=== PATIENT | female | born 1960 | race Caucasian/White ===

== ENCOUNTER 2021-03-10 16:38 | Inpatient (IN) | payer MEDICARE ==
[~2021-03-10] VITALS: Ht 157.5 cm; Wt 61.5 kg
[~2021-03-10 16:38] MED LIST: ALPR0.254 PO; ASPI-482 PO; CARV12.511 PO; CETI10TA74 PO; FLUT9.9S NS; GUAI600T47 PO; IBUP-1027 PO; OMEP20CA16 PO
[2021-03-10 17:36] VITALS: BP 115/92
[2021-03-10 19:00] VITALS: BP 118/68
--- NOTE | 2021-03-10 19:18 | HP ---
DATE OF SERVICE: 03/10/2021 ADMIT DATE: 03/10/2021 CHIEF COMPLAINT: UTI, sepsis, renal abscess. HISTORY OF PRESENT ILLNESS: The patient is a pleasant 60-year-old female who presented to [facility] earlier today. The ER doctor called and explained she was septic and that she had a UTI and he was concerned she might have a renal abscess. She has now been transferred to our facility where I have consulted Infectious Disease. I did call Dr. More of the Interventional Radiology service. He is going to consider draining the abscess tomorrow. PAST MEDICAL HISTORY: Allergic rhinitis, CHF, anxiety, depression and GERD. ALLERGIES: PENICILLIN AND METOPROLOL. FAMILY HISTORY: Diabetes. SOCIAL HISTORY: She does not drink, smoke or take drugs. She states she is on social security disability. MEDICATIONS: Reviewed. She is on Zyrtec, carvedilol, aspirin, ibuprofen, Xanax, Mucinex, fluticasone and omeprazole. REVIEW OF SYSTEMS: GENERAL: No history of weight change, weakness or fevers. SKIN: No bruising, hair changes or rashes. EYES: No blurred, double or loss of vision. NOSE AND THROAT: No history of nosebleeds, hoarseness or sore throat. HEART: No history of palpitations, chest pain or shortness of breath on exertion. LUNGS: Denies cough, hemoptysis, wheezing or shortness of breath. GASTROINTESTINAL: Denies changes in appetite, nausea, vomiting, diarrhea or constipation. GENITOURINARY: No history of frequency, urgency, hesitancy or nocturia. NEUROLOGIC: Denies history of numbness, tingling, tremor or weakness. PSYCHIATRIC: No history of panic, anxiety or depression. ENDOCRINE: No history of heat or cold intolerance, polyuria or polydipsia. EXTREMITIES: Denies muscle weakness, joint pain, pain on walking or stiffness. PHYSICAL EXAMINATION: VITALS: Within normal limits and are stable. GENERAL: No apparent distress. Alert and oriented. HEENT: Normal cephalic atraumatic, external auditory canals are patent EYES: Extraocular muscles are intact, pupils are equally round and reactive to light and accommodation MUSCULOSKELETAL: Well developed, well nourished, good range of motion ENDOCRINE: No thyromegaly was palpated LYMPHATICS: No cervical chain or axillary nodes were noted HEMATOPOIETIC: No bruising NECK: Supple, no JVD, no thyromegaly was noted. LUNGS: Clear to auscultation in all lung rendon without rhonchi or wheezing. HEART: RRR, S1, S2 present. Peripheral pulses intact, no obvious murmurs were noted. ABDOMEN: Soft, nontender. Positive bowel sounds no organomegaly, normal bowel sounds. EXTREMITIES: Without any cyanosis, clubbing, or edema. Pedal pulses intact, Homans sign is negative. NEUROLOGIC: Normal speech, normal tone. A and O x 3, moves all extremities, no obvious focal deficits. PSYCHIATRIC: Normal affect, normal mood. Stable. SKIN: No ulcerations or rashes, good skin turgor, no jaundice. VASCULAR: Good capillary refill, neurovascular bundle appears to be intact. LABORATORIES: Pending. ASSESSMENT AND PLAN: Sepsis, urinary tract infection and possible renal abscess. We will start IV antibiotics. Consult Infectious Disease, consult Interventional Radiology. She also has a bump in her troponin to 0.16. We will go ahead and consult Cardiology. Home meds. Deep venous thrombosis prophylaxis. Full code. Cardiac monitoring. I discussed the case with her nurse. SARIAH/TRENTON/EMEKA DR: SARIAH/nas TID: [id number]
[2021-03-10] MEDS: ACETAMINOPHEN 325 MG TABLET. PO PRN (19:47)
[2021-03-10] MEDS: NICOTINE 14MG PATCH. TD SCH (19:47)
[2021-03-10] MEDS ORDERED: ATOR10TA60 PO (22:24)
[2021-03-10] MEDS ORDERED: MENT120G3 TP (22:24)
[2021-03-10] MEDS ORDERED: INSU100V8 SQ (22:24)
[2021-03-10] MEDS ORDERED: GABA600T7 PO (22:46)
[2021-03-10 22:48] VITALS: BP 138/68
[2021-03-10] MEDS: GABAPENTIN 300 MG CAPSULE. PO SCH (23:03)
[2021-03-11] VITALS (11 sets, daily range): BP systolic 113–178; BP diastolic 70–106
[2021-03-11 06:44] LABS: CALCIUM 8.3 mg/dL (8.5-10.1); CREATININE 0.6 mg/dL (0.6-1.0); GFR 102.3; POTASSIUM 3.6 mmol/L (3.5-5.1)
[2021-03-11 07:46] LABS: BASO % 0 % (0-3); EOS # 0.1 x10^3/uL (0.0-0.7); EOS % 0 % (0-3); LYMPH # 1.4 x10^3/uL (1.0-4.8); LYMPH % 4 % (24-48); MEAN CORPUSCULAR HEMOGLOBIN 31 pg (25-35); MEAN CORPUSCULAR HGB CONC 33 g/dL (31-37); MEAN CORPUSCULAR VOLUME 95 fL (79-100); MONO # 2.8 x10^3/uL (0.0-1.1); MONO % 9 % (0-9); NEUT # 28.3 x10^3/uL (1.8-7.7); NEUT % 87 % (31-73); PLATELET COUNT 171 x10^3/uL (140-400); RED CELL DISTRIBUTION WIDTH 16.4 % (11.5-14.5); WHITE BLOOD COUNT 32.6 x10^3/uL (4.0-11.0)
--- NOTE | 2021-03-11 08:09 | PDOC ---
Provider Note Date of Service: DATE: 03/11/21 TIME: 08:05 Provider Note IR NOTE 60 year old female with possible right renal abscess. CT reviewed septated fluid collection lateral right kindey measures just under 3 cm. Generally renal abscess under 5 cm can be managed with antibiotics alone, with a short term followup scan to ensure improvement. However, if the causative organism is uncertain (for example if urine culture non diagnostic), or ID feels sampling abscess would be of benefit to guide therapy US/CT guided aspiration could be performed. Will followup on their recs and go from there. Justifications for Admission Other Justification STEPHEN ESPINOZA MD Mar 11, 2021 08:09
--- NOTE | 2021-03-11 08:27 | PDOC ---
[employer] PROGRESS NOTE Date of Service DOS: DATE: 03/11/21 TIME: 08:25 Chief Complaint Chief Complaint A/P: Septic shock Renal abscess UTI (urinary tract infection) - Acute pyelonephritis Gram negative bacteremia - ID consulted Hypokalemia Hypomagnesemia Elevated troponin Acute encephalopathy - sepsis vs ETOH/benzo withdrawal. On CIWA and treating sepsis Lactic acidosis - sepsis vs seizure Acute kidney injury - vasomotor nephropathy from sepsis Hyponatremia - likely hypovolemic, will monitor ETOH dependence, recently discharged from rehab facility. Elevated troponin - unclear etiology, likely demand from sepsis. Cardiology consulted FEN - regular diet PPX - heparin FULL CODE Dispo - transfer to ICU History of Present Illness History of Present Illness Ms Barber is a 60-year-old female who presented via EMS to [facility] in [place] with report of altered mental status. Patient reportedly was found laying across the toilet resting her head in the shower by her son with altered mental state. Patient does have a history of alcohol abuse and recently was discharged from rehab after she was hospitalized at [facility]. EMS reports noting many empty beer cans found in the home. Patient does report drinking recently. Patient reports nausea and vomiting. Patient denies headache or neck pain. Patient reports she feels "ill ". Patient has received [employer] Covid vaccination. No recent sick contacts EKG Sinus tachycardia at 129bpm, occasional PVC, NO ST elevation, QRS 108ms, QT/QTc 326/479ms Initial labs NA 120 6K3.3, BUN 14, CR 1.3, glucose 199, magnesium 1.4, bilirubin 1.6, AST 36 ALT 26 alk phos 4 3, albumin 2.4, troponin 0.05 7.2179 0.291, ammonia 39, lactic acid 8.3, ethanol undetectable urine benzodiazepines positive COVID-19 rapid PCR negative, urinalysis positive for leuk esterase and nitrates. Blood cultures positive for 2 out of 4 bottles gram-negative adryan Chest x-ray stable. CT head/cervical spine without acute finding. CTA chest and abdomen/pelvis w/ IV contrast obtained with findings concerning for right sided renal abscess. Empiric antibiotic coverage added with vancomycin. Transferred to [facility] for [facility] care. Seen bedside, confused, tachycardic, asking if she can have some xanax. Not oriented, tachycardic, blood cultures notes. Transferred to ICU for worsening mental status, concern for seizure prior to arrival and impending potential septic shock. CC time 43 min Vitals/I&O Vitals/I&O: Vital Signs Date Time Temp Pulse Resp B/P (MAP) Pulse Ox O2 Delivery O2 Flow Rate FiO2 03/11/21 07:30 100.0 134 26 176/92 (120) 99 Nasal Cannula 4.0 100.0 I & O 03/10/21 03/10/21 03/11/21 15:00 23:00 07:00 Intake Total 250 ml 0 ml Balance 250 ml 0 ml Physical Exam General: Alert Heart: Regular rate Lungs: Clear Labs Labs: Laboratory Tests Test 03/10/21 22:43 03/11/21 04:50 03/11/21 07:30 Glucose (Fingerstick) 128 mg/dL (70-99) Sodium Level 127 mmol/L (136-145) Potassium Level 3.6 mmol/L (3.5-5.1) Chloride Level 94 mmol/L (98-107) Carbon Dioxide Level 23 mmol/L (21-32) Anion Gap 10 (6-14) Blood Urea Nitrogen 11 mg/dL (7-20) Creatinine 0.6 mg/dL (0.6-1.0) Estimated GFR (Cockcroft-Gault) 102.3 Glucose Level 97 mg/dL (70-99) Calcium Level 8.3 mg/dL (8.5-10.1) White Blood Count 32.6 x10^3/uL (4.0-11.0) Red Blood Count 4.20 x10^6/uL (3.50-5.40) Hemoglobin 13.0 g/dL (12.0-15.5) Hematocrit 40.0 % (36.0-47.0) Mean Corpuscular Volume 95 fL (79-100) Mean Corpuscular Hemoglobin 31 pg (25-35) Mean Corpuscular Hemoglobin Concent 33 g/dL (31-37) Red Cell Distribution Width 16.4 % (11.5-14.5) Platelet Count 171 x10^3/uL (140-400) Neutrophils (%) (Auto) 87 % (31-73) Lymphocytes (%) (Auto) 4 % (24-48) Monocytes (%) (Auto) 9 % (0-9) Eosinophils (%) (Auto) 0 % (0-3) Basophils (%) (Auto) 0 % (0-3) Neutrophils # (Auto) 28.3 x10^3/uL (1.8-7.7) Lymphocytes # (Auto) 1.4 x10^3/uL (1.0-4.8) Monocytes # (Auto) 2.8 x10^3/uL (0.0-1.1) Eosinophils # (Auto) 0.1 x10^3/uL (0.0-0.7) Basophils # (Auto) 0.0 x10^3/uL (0.0-0.2) Comment Review of Relevant I have reviewed the following items celeste (where applicable) has been applied. Medications: Current Medications Medications (Trade) Dose Ordered Sig/Radha Route PRN Reason Start Time Stop Time Status Last Admin Dose Admin Levofloxacin/ Dextrose 50 ml @ 50 mls/hr Q24H IV 03/10/21 19:00 03/10/21 19:48 Acetaminophen (Tylenol) 650 mg PRN Q6HRS PRN PO MILD PAIN / TEMP > 100.3'F 03/10/21 18:45 03/10/21 19:47 Nicotine (Nicoderm Cq 14mg) 1 patch DAILY TD 03/10/21 19:00 03/10/21 19:47 Gabapentin (Neurontin) 300 mg BID PO 03/10/21 23:00 03/10/21 23:03 Lorazepam (Ativan) 4 mg PRN Q1HR PRN PO For CIWA 8-14 03/10/21 23:00 03/10/21 23:03 Images: CT HEAD AND CERVICAL SPINE WO Exam Date: 03/10/2021 8:[address] HEAD AND C-SPINE WO Indication: Reason: altered mental status, fall, ETOH, pain / Spl. Instructions: / History: . One or more of the following dose reduction techniques were utilized: *Automated exposure control (AEC) *Adjustment of mA and/or kV according to patient size *Use of iterative reconstruction technique *CT scan done according to ALARA, or ALARA/IMAGE GENTLY EXAMINATION: CT OF THE HEAD WITHOUT CONTRAST INDICATION: Trauma, head injury, headache; TECHNIQUE: Noncontrast helical axial CT images of the head were obtained. COMPARISON: September 03, 2020 FINDINGS: The ventricles and sulci are prominent consistent with cerebral volume loss. Patchy ill-defined low attenuation areas in the subcortical and periventricular white matter bilaterally are consistent with microvascular disease. There is no evidence of acute intracranial hemorrhage, extra-axial collection, mass effect, midline shift, or acute territorial infarct. No lesion of the skull base or the calvarium is seen. The visualized paranasal sinuses, mastoid air cells, and orbits are normal in appearance. IMPRESSION: No evidence for acute intracranial abnormality. Volume loss and microvascular disease. EXAMINATION: CT OF THE CERVICAL SPINE WITHOUT CONTRAST Clinical Indication: Cervical spine pain after trauma Technique: Thin cut helical axial CT images through the cervical spine were obtained without contrast on a multi-detector CT scanner. Source data was then reconstructed into sagittal and coronal planes. Findings: Alignment is maintained without spondylolisthesis. Vertebral body heights are maintained without acute fracture. Mild multilevel degenerative changes are noted. No significant prevertebral soft tissue swelling is demonstrated. No severe osseous central canal stenosis is seen. Impression: No evidence of acute cervical spine fracture or subluxation. Electronically signed by: Daniel Johnson MD (03/10/2021 8:43 AM) [id number] PROCEDURE: PORTABLE CHEST 1V Single view of the chest. 03/10/2021 8:18 AM Indication: Reason: altered mental status Comparison: Chest radiograph January 23, 2021 Findings: Heart size is top normal given portable technique. Mild aortic calcification noted. No pneumothorax, pleural effusion, or focal infiltrate is seen. No acute osseous changes are identified. IMPRESSION: No radiographic evidence of acute cardiopulmonary process Electronically signed by: Faustino More MD (03/10/2021 8:33 AM) [id number] PROCEDURE: CT ANGIO CHEST W ABD PEL W/ CTA CHEST_ABDOMEN_AND PELVIS History: Dyspnea, abdominal pain. Rule out PE. Comparison: CTA chest 01/23/2021. CT abdomen pelvis 05/06/2020. Technique: CT angiogram of the chest, abdomen and pelvis with intravenous con trast. 3-D postprocessing was performed with MIPS projections Findings: Chest: Pulmonary arteries: No pulmonary embolism. Aorta and great vessels: No aneurysm of the aortic arch or thoracic aorta is seen. Mild atherosclerotic calcification. Heart: The heart is normal in size. There is no pericardial effusion. Heavy coronary artery calcification. Thyroid: No significant abnormalities. Mediastinum and perla: No mediastinal masses or adenopathy is seen. Esophagus: The visualized esophagus is normal. Airways, Lungs, Pleura: Motion artifact limits evaluation. No airspace consolidation. No significant pulmonary nodule. Soft tissue and osseous: Healing fractures of the anterior left second, third, fourth, fifth, sixth, seventh ribs. Hypoplastic left first rib. Butterfly vertebral bodies at T4, T6, T8 and T9. Abdomen/Pelvis: General abdomen: No ascites. No free air. Liver : Normal in size and attenuation. No masses seen. Gallbladder/Biliary Tree: Normal gallbladder. No intrahepatic or extrahepatic biliary ductal dilatation. Pancreas: Normal. Spleen: Normal in size and attenuation. Adrenal glands: Normal. Kidneys: Irregular fluid density mass interpolar right kidney measuring 3.4 x 2.6 x 2.7 cm, new from comparison. No hydronephrosis. Nonobstructing left inferior pole 7 mm nephroliths. Gastrointestinal: Unremarkable stomach and small bowel. Normal appendix. Relatively decompressed colon with a few scattered diverticula. No pericolonic inflammatory changes. Lymph nodes: No lymphadenopathy. Vessels: Aortoiliac atherosclerosis. Pelvic Organs: Heterogeneous calcified multi fibroid uterus. The bladder is unremarkable. Soft tissues: Unremarkable. Bones: No acute or aggressive lesions. Impression: 1. No pulmonary embolism, aortic dissection or aortic aneurysm. 2. Irregular fluid density right renal mass measuring up to 3.4 cm concerning for renal abscess. Correlate with labs and symptoms. Renal infarction or neoplasm are considered less likely. 3. Numerous subacute left anterior rib fractures. 4. Nonobstructing left nephrolithiasis. 5. Mild diverticulosis without evidence of diverticulitis. 6. Variant thoracic spine anatomy with multiple butterfly vertebral bodies. ------ Exposure: One or more of the following individualized dose reduction techniques were utilized for this examination: 1. Automated exposure control 2. Adjustment of the mA and/or kV according to patient size 3. Use of iterative reconstruction technique. 3. Use of iterative reconstruction technique. I Electronically signed by: Irving Valdez MD (03/10/2021 11:11 AM) [facility] Justifications for Admission Other Justification CHON GARIBAY MD Mar 11, 2021 08:26
[2021-03-11] MEDS ORDERED: HALOPERIDOL LACTATE 5 MG/ML VIAL. IVP PRN (08:30)
[2021-03-11] MEDS ORDERED: cloNIDine HCL 0.1 MG TABLET PO PRN (08:30)
[2021-03-11] MEDS ORDERED: IV NORMAL SALINE 1000ML BAG 1,000 ML IV ONE ×2 (08:30→17:00)
[2021-03-11] MEDS: NICOTINE 14MG PATCH. TD SCH (08:56)
[2021-03-11] MEDS: ACETAMINOPHEN 325 MG TABLET. PO PRN (09:08)
[2021-03-11] MEDS: GABAPENTIN 300 MG CAPSULE. PO SCH ×2 (09:08→21:30)
[2021-03-11 09:12] LABS: % BANDS 10 % (0-9); % LYMPHS 2 % (24-48); % METAS 2 % (0-0); % MONOS 3 % (0-10); % SEGS 83 % (35-66)
[2021-03-11 09:13] LABS: PLT ESTIMATE ADEQUATE (ADEQUATE); TOXIC VACUOLATION SLIGHT
[2021-03-11 10:34] LABS: PROTHROMBIN TIME PATIENT 13.6 SEC (11.7-14.0)
[2021-03-11 10:49] LABS: CHOLESTEROL/HDL RATIO 20.4
--- NOTE | 2021-03-11 11:08 | PDOC2 ---
RADHA OSEI PATROL AGENT 03/11/21 1108: CARDIAC CONSULT DATE OF CONSULT Date of Consult DATE: 03/11/21 TIME: 11:06 REASON FOR CONSULT Reason for Consult: Elevated troponin REFERRING PHYSICIAN Referring Physician: Dr. Lawson SOURCE Source: Chart review, Patient HISTORY OF PRESENT ILLNESS HISTORY OF PRESENT ILLNESS This is a 60 yo female who presented initially to [facility] secondary to altered mental status. Patient was found by son laying across the toilet with altered mental status. Patient reported she didn't feel well and had nausea and vomiting. Was thought to be intoxicated as patient has a history of alcohol abuse and was recently discharged from rehab facility. Multiple empty beer cans were also noted in the home. Initial labs with concerns for sepsis given leukocytosis, bandemia, lactic acidosis, and tachycardia. Troponin noted to be slightly elevated with highest 0.29. CT head/cervical spine without acute finding. Alcohol negative. Rapid Covid testing negative. Mag and potassium were replaced. CTA chest and abdomen/pelvis w/ IV contrast obtained with findings concerning for right sided renal abscess. UA with evidence of UTI. Patient was transferred to [facility] for further evaluation and treatment. PAST MEDICAL HISTORY Cardiovascular: CAD, CHF, HTN, Hyperlipidemia CENTRAL NERVOUS SYSTEM: Periperal neuropathy Psych: Anxiety, Addictions, Depression, Panic Musculoskeletal: Osteoarthritis, Other (scoliosis ) Endocrine: Diabetes, Hypothyroidism PAST SURGICAL HISTORY Past Surgical History: No pertinent history FAMILY HISTORY Family History: Family History Unknown SOCIAL HISTORY Smoke: 1 pack per day ALCOHOL: heavy (recent rehab) Drugs: None Lives: with Family CURRENT MEDICATIONS CURRENT MEDICATIONS Current Medications Medications (Trade) Dose Ordered Sig/Radha Route PRN Reason Start Time Stop Time Status Last Admin Dose Admin Levofloxacin/ Dextrose 50 ml @ 50 mls/hr Q24H IV 03/10/21 19:00 03/11/21 08:25 DC 03/10/21 19:48 Acetaminophen (Tylenol) 650 mg PRN Q6HRS PRN PO MILD PAIN / TEMP > 100.3'F 03/10/21 18:45 03/11/21 09:08 Nicotine (Nicoderm Cq 14mg) 1 patch DAILY TD 03/10/21 19:00 03/11/21 08:56 Gabapentin (Neurontin) 300 mg BID PO 03/10/21 23:00 03/11/21 09:08 Lorazepam (Ativan) 4 mg PRN Q1HR PRN PO For CIWA 8-14 03/10/21 23:00 03/11/21 09:25 DC 03/10/21 23:03 Sodium Chloride 1,000 ml @ 125 mls/hr 1X ONCE IV 03/11/21 08:30 03/11/21 16:29 03/11/21 08:55 ALLERGIES ALLERGIES: Coded Allergies: Penicillins (Verified Allergy, Severe, Swelling, 03/10/21) codeine (Verified Allergy, Severe, 03/11/21) swelling and confusion metoprolol (Verified Allergy, Intermediate, PASSED OUT, 03/10/21) PASSED OUT ampicillin (Verified Allergy, Unknown, 03/11/21) atorvastatin (Verified Allergy, Unknown, 03/11/21) losartan (Verified Allergy, Unknown, 03/11/21) ROS Review of System 14 point ROS conducted with pertinent positives noted above in HPI PHYSICAL EXAM General: Alert, Oriented X3, Cooperative, No acute distress HEENT: Atraumatic, Mucous membr. moist/pink Lungs: Other (diminished bases) Heart: Regular rate (SR/ST) Abdomen: Soft Extremities: No edema, Normal pulses Skin: No breakdown, No significant lesion Neuro: Sensation intact Psych/Mental Status: Other (drowsy) MUSCULOSKELETAL: Osteoarthritic changes both hands VITALS/I&O VITALS/I&O: Vital Signs Date Time Temp Pulse Resp B/P (MAP) Pulse Ox O2 Delivery O2 Flow Rate FiO2 03/11/21 07:30 100.0 134 26 176/92 (120) 99 Nasal Cannula 4.0 100.0 I & O 03/10/21 03/10/21 03/11/21 15:00 23:00 07:00 Intake Total 250 ml 0 ml Balance 250 ml 0 ml LABS Lab: Laboratory Tests Test 03/10/21 22:43 03/11/21 04:50 03/11/21 07:30 03/11/21 10:11 Glucose (Fingerstick) 128 mg/dL (70-99) H Sodium Level 127 mmol/L (136-145) L Potassium Level 3.6 mmol/L (3.5-5.1) Chloride Level 94 mmol/L (98-107) L Carbon Dioxide Level 23 mmol/L (21-32) Anion Gap 10 (6-14) Blood Urea Nitrogen 11 mg/dL (7-20) Creatinine 0.6 mg/dL (0.6-1.0) Estimated GFR (Cockcroft-Gault) 102.3 Glucose Level 97 mg/dL (70-99) Calcium Level 8.3 mg/dL (8.5-10.1) L White Blood Count 32.6 x10^3/uL (4.0-11.0) H Red Blood Count 4.20 x10^6/uL (3.50-5.40) Hemoglobin 13.0 g/dL (12.0-15.5) Hematocrit 40.0 % (36.0-47.0) Mean Corpuscular Volume 95 fL (79-100) Mean Corpuscular Hemoglobin 31 pg (25-35) Mean Corpuscular Hemoglobin Concent 33 g/dL (31-37) Red Cell Distribution Width 16.4 % (11.5-14.5) H Platelet Count 171 x10^3/uL (140-400) Neutrophils (%) (Auto) 87 % (31-73) H Lymphocytes (%) (Auto) 4 % (24-48) L Monocytes (%) (Auto) 9 % (0-9) Eosinophils (%) (Auto) 0 % (0-3) Basophils (%) (Auto) 0 % (0-3) Neutrophils # (Auto) 28.3 x10^3/uL (1.8-7.7) H Lymphocytes # (Auto) 1.4 x10^3/uL (1.0-4.8) Monocytes # (Auto) 2.8 x10^3/uL (0.0-1.1) H Eosinophils # (Auto) 0.1 x10^3/uL (0.0-0.7) Basophils # (Auto) 0.0 x10^3/uL (0.0-0.2) Segmented Neutrophils % 83 % (35-66) H Band Neutrophils % 10 % (0-9) H Lymphocytes % 2 % (24-48) L Monocytes % 3 % (0-10) Metamyelocytes % 2 % (0-0) H Toxic Vacuolation Slight Platelet Estimate Adequate (ADEQUATE) Prothrombin Time 13.6 SEC (11.7-14.0) Prothrombin Time INR 1.0 (0.8-1.1) Activated Partial Thromboplast Time 32 SEC (24-38) Troponin I Quantitative 0.431 ng/mL (0.000-0.055) Triglycerides Level 268 mg/dL (0-150) H Cholesterol Level 163 mg/dL (0-200) LDL Cholesterol, Calculated 101 mg/dL (0-100) H VLDL Cholesterol, Calculated 54 mg/dL (0-40) H Non-HDL Cholesterol Calculated 155 mg/dL (0-129) H HDL Cholesterol 8 mg/dL (40-60) L Cholesterol/HDL Ratio 20.4 Laboratory Tests 03/11/21 07:30 Laboratory Tests 03/11/21 04:50 ECHOCARDIOGRAM ECHOCARDIOGRAM 09/26/20 - 2D + DOPPLER ECHO Interpretation Summary LVEF=45%. Mild to moderately dilated left ventricle with mildly impaired systolic function. Right ventricular size and function are normal. Normal LA volume index. No hemodynamically significant valve abnormalities. No pericardial effusion. Unable to accurately estimate PA systolic pressure. HEART CATH HEART CATH CARDIAC CATHETERIZATION REPORT DATE: 08/04/2012 FINDINGS: Left ventricular end systolic pressure is 143 mmHg. Left ventricular end-diastolic pressure 12 mmHg. There was no gradient across aortic valve during pullback maneuver. SELECTIVE CORONARY ANGIOGRAM: LEFT MAIN CORONARY ARTERY: The left main coronary artery is a medium sized vessel which has distal luminal irregularities of 10 percent, divides into LAD and circumflex coronary arteries. There is no significant stenosis in the proximal or midportion and mild 10 percent luminal stenosis in the distal left m ain. LEFT ANTERIOR DESCENDING ARTERY: The left anterior descending artery is a large type 3 vessel which wraps around the apex. It gives rise to 2 small to medium sized diagonals in the proximal segment. These do not have any significant stenotic lesions. After this, the proximal area has about 20 percent focal stenosis. The mid and distal LAD does not have any significant stenosis. There is a 3rd diagonal which is of large size which divides into superior and inferior branches and arises from the mid LAD. There is no significant stenosis in the 3rd diagonal branch as well. LEFT CIRCUMFLEX CORONARY ARTERY: The left circumflex coronary artery is a codominant vessel. It gives rise to 1 large obtuse marginal vessel which divides into superior and inferior branch. The 2nd obtuse marginal was a medium sized vessel and the 3rd obtuse marginal vessel is a smaller vessel that does not have any significant stenosis. Then it gives rise to the left-sided PDA which does not have any significant stenotic lesions. RIGHT CORONARY ARTERY: The right coronary artery is a codominant vessel. It gives rise to a short PDA and PLV segment. Does not have any significant stenosis in the proximal, mid and distal portion. There is no significant stenosis in the PDA and PLV branches. LEFT VENTRICULOGRAM: Overall ejection fraction is 60 percent. No wall motion changes. No mitral regurgitation. Normal-appearing aortic root size. Aortic valve is trileaflet. IMPRESSION: Mild nonobstructive coronary artery disease. Normal left ventricular end-diastolic pressure. Normal left ventricular ejection fraction. PLAN: Medical treatment. ASSESSMENT/PLAN ASSESSMENT/PLAN 1. Leukocytosis, lactic acidosis, fevers, sepsis. CT with concerns for right renal abscess 2. UTI 3. Sinus tachycardia; physiologic secondary to above 4. Mild troponin elevation; highest 0.29. Most probable type II, demand ischemia in setting of above 5. CAD; mild, non-obstructive per cath 2012 6. Chronic systolic CHF, dilated cardiomyopathy; Echo 10/03 with LVEF 45%. Follows with Dr. Najera [facility] 7. Hypertension; labile 8. Hyperlipidemia; statin 9. DOMI; improved 10. Diabetes, II 11. Hypothyroidism 12. H/o ETOH abuse; recent discharged from rehab facility. neg upon admission Recommendations Repeat troponin to note peak ASA therapy Echo to assess LV systolic Resume home antiHTN therapy, secondary prevention Consider outpatient ischemic evaluation Ongoing treatment of sepsis as per ID Supportive care Consider outpatient ischemic evaluation DURAN BOLAÑOS MD 03/11/212036: CARDIAC CONSULT ASSESSMENT/PLAN ASSESSMENT/PLAN Patient seen and examined. Agree with FOOD MIXER REPAIRER's assessment and plan Slight trop elevation prob demand ischemia 2D echo showed normal LVF Plan ischemic eval as outpatient Resume home antihypertensives and titrate for better BP control Thank you for your consultation RADHA OSEI APRN Mar 11, 2021 11:08 DURAN BOLAÑOS MD Mar 11, 2021 20:37
--- NOTE | 2021-03-11 11:23 | CONS ---
DATE OF CONSULTATION: 03/11/2021 REFERRING PHYSICIAN: David Lawson DO REASON FOR CONSULTATION: UTI, renal abscess, antibiotic management. Source Chart and Medical staff. Pt is sleepy from ativan last night, arousable but information limited. HISTORY OF PRESENT ILLNESS: A 60-year-old female who presented to [facility] with reports of altered mental status. The patient had leukocytosis, white count of 17,000. She met SIRS criteria with leukocytosis, bandemia, tachycardia. She received IV fluid bolus. Lactic acid was elevated. Alcohol levels were negative. UA showed pyuria. Chest x-ray was negative for acute process. CT head, cervical spine was negative for acute findings. The patient also had COVID test rapid, which was negative. She had hypokalemia and hypomagnesemia. The patient was started on Rocephin, also received a dose of vancomycin. CT of the chest, abdomen and pelvis revealed right renal abscess; irregular fluid density right renal mass measuring 3.4 cm, concerning for renal abscess, correlate with labs and symptoms, renal infarction or neoplasm are considered less likely; no PE; nonobstructing left nephrolithiasis; mild diverticulosis without evidence of diverticulitis; ovarian thoracic spine abnormality. The patient was transferred to [facility] for further evaluation and treatment. Currently, the patient is sleepy. She is arousable, does not answer all the questions. She received Ativan last night. Her temperature is 100. White count here was 32,000. The patient is currently on Levaquin. ID consultation has been requested for antibiotic management. Records from [facility] reviewed. She is tachycardic, on nacl, no pressor support. PAST MEDICAL HISTORY: GERD, anxiety, depression, CHF, allergic rhinitis, ETOH dependence. Currently per chart, the patient was discharged from rehab due to history of alcohol abuse. SOCIAL HISTORY: Denies smoking. ETOH dependence as above. No illicit drug use. On social security disability. CURRENT MEDICATIONS: Levaquin, also received Rocephin and IV vancomycin at outside hospital. Other medications reviewed in medication list. ALLERGIES: PENICILLIN SAYS CAUSES RASH AND THROAT SWELLING, DOES NOT RECALL TAKING AMOXICILLIN OR CEPHALOSPORINS; ALSO TO METOPROLOL. REVIEW OF SYSTEMS: Limited, but negative except for above in HPI. She complains of vaginitis whenever she has IV antibiotics. She had taken ciprofloxacin in childhood with similar illness and reports that she got better. She denies being on any antibiotics prior to admission. PHYSICAL EXAMINATION: VITAL SIGNS: Temperature 100, otherwise noted. Pulse 134, respiratory rate 26, blood pressure 176/92, oxygen saturation 99% on room air. GENERAL: Sleepy, but arousable female, answers only a few questions, in no acute distress, arousable. HEENT: Normocephalic, atraumatic. Anicteric. No thrush. Oral mucosa dry. NECK: Supple. No tenderness. LUNGS: Clear bilaterally. HEART: S1, S2, tachycardia. No murmurs. ABDOMEN: Soft, mild diffuse tenderness, slightly distended. Bowel sounds present. No guarding, no rigidity. EXTREMITIES: No edema, no cyanosis. DERMATOLOGIC: Warm, dry. No generalized rash. NEUROLOGIC: Alert, oriented x 3, grossly nonfocal. GENITOURINARY: Briefs in place. No Babin in place. LABORATORY DATA: WBC 32,000, platelets 171, hemoglobin 13.0, bands 10. Sodium 127, potassium 3.6, chloride 94, bicarb 23, BUN 11, creatinine 0.6, glucose 128, calcium 8.3. At outside facility, Lactic acid > 8 CPK was 76. Ethyl alcohol less than 10. SARS-COVID negative. Bili 1.6. Lactate 8.3, glucose 199, calcium 9.3, creatinine 1.3. IMPRESSION: 1. Septic Shock 2. Leukocytosis and lactic acidosis, source genitourinary. 3. Urinary tract infection with renal mass, possible renal abscess, not a candidate for IR drainage. 4. ALLERGIES TO PENICILLIN WITH HIVES AND THROAT SWELLING. 5. Acute kidney injury. 6. Febrile illness. 7. Leukocytosis and bandemia. 8. Hyponatremia. 9. History of kidney stone. 10. Encephalopathy, likely metabolic.Also received ativan last night. 11. ETOH dependence, recently discharged from rehab facility. 12. Elevated troponin. 13. Hypokalemia and hypomagnesemia. 14. Vaginitis. RECOMMENDATIONS: 1. Continue Levaquin. Add Zyvox. 2. Maintain aspiration precautions. Monitor labs and cultures. Monitor blood cultures and urine cultures from [facility]. 3. IR has evaluated the patient. The patient is not a candidate for drainage at this time. 4. The patient may need transfer to tertiary care center with urology consultation if continues to worsen. 5.Critically ill. Monitor closely, If the patient's condition deteriorates, may need transfer to ICU. 6. We will start clotrimazole cream per the patient report. Discussed with nursing staff. Thank you for allowing me to participate in this patient's care. We will follow along with you. ALESSIO DR: Jackeline TID: [id number] [email or web address]
[2021-03-11] MEDS: ASPIRIN ENTERIC COATED 81 MG TABLET.DR. PO SCH (13:00)
[2021-03-11] MEDS ORDERED: NORMAL SALINE IV ONE ×4 (14:30→16:30)
[2021-03-11] MEDS ORDERED: MEROPENEM IV ONE ×4 (14:30→16:30)
--- NOTE | 2021-03-11 15:25 | CARD ---
MR#: [id number] Date of Study: 03/11/2021 Ordering Physician: RADHA OSEI, Referring Physician: RADHA OSEI, Tech: Iliana Humphrey [facility] APPROVED REPORT EXAM: Two-dimensional and M-mode echocardiogram with Doppler and color Doppler. Other Information Quality : Technically LimitedHR: 96bpm Rhythm : NSRTechnically limited study due to body habitus. INDICATION RISK FACTORS Hypertension Obesity 2D DIMENSIONS Left Atrium(2D)3.4 (1.6-4.0cm)IVSd1.3 (0.7-1.1cm) Aortic Root(2D)3.3 (2.0-3.7cm)LVDd3.6 (3.9-5.9cm) LVOT Diameter2.5 (1.8-2.4cm)PWd1.4 (0.7-1.1cm) LVDs2.6 (2.5-4.0cm)FS (%) 29.9 % SV32.4 mlLVEF(%)58.0 (>50%) Aortic Valve AoV Peak Cornelius.147.8cm/Siobhan Peak GR.8.7mmHg LEFT VENTRICLE The left ventricle is normal size. There is mild concentric left ventricular hypertrophy. The left ve ntricular systolic function is normal and the ejection fraction is within normal range. Estimated eje ction fraction 60%. There is normal LV segmental wall motion. Tissue Doppler imaging reveals moderate left ventricular diastolic dysfunction. RIGHT VENTRICLE The right ventricle is normal size. There is normal right ventricular wall thickness. The right ventr icular systolic function is normal. ATRIA The left atrium size is normal. The right atrium size is normal. The interatrial septum is intact wit h no evidence for an atrial septal defect or patent foramen ovale as noted on 2-D or Doppler imaging. AORTIC VALVE The aortic valve is normal in structure and function. Doppler and Color Flow revealed no significant aortic regurgitation. There is no significant aortic valvular stenosis. MITRAL VALVE The mitral valve is normal in structure and function. There is no evidence of mitral valve prolapse. There is no mitral valve stenosis. Doppler and Color Flow revealed no mitral valve regurgitation note d. TRICUSPID VALVE The tricuspid valve is normal in structure and function. Doppler and Color Flow revealed no tricuspid valve regurgitation noted. There is no tricuspid valve stenosis. PULMONIC VALVE Doppler and Color Flow revealed no pulmonic valvular regurgitation. There is no pulmonic valvular daniel nosis. GREAT VESSELS The aortic root is normal in size. The ascending aorta is normal in size. The IVC is normal in size a nd collapses >50% with inspiration. PERICARDIAL EFFUSION There is no evidence of significant pericardial effusion. Critical Notification Critical Value: No <Conclusion> The left ventricular systolic function is normal and the ejection fraction is within normal range. E stimated ejection fraction 60%. There is normal LV segmental wall motion. There is mild concentric left ventricular hypertrophy. Signed by : Harjeet Dennison, Electronically Approved : 03/11/2021 15:24:53
[2021-03-11] MEDS: CARVEDILOL 12.5 MG TABLET. PO SCH (17:37)
[2021-03-11] MEDS ORDERED: MAGNESIUM SULFATE 2GM 50 ML IV ONE (18:15)
--- NOTE | 2021-03-11 19:17 | NUR ---
At 1715 Patient SPO2 noted in high 20s while she was asleep and on oxygen 4L NC. This nurse went to checked on patient; woke patient up, immediately SPO2 to upper 90s. Patient currently is on non-rebreather at 15L.
--- NOTE | 2021-03-11 19:25 | NUR ---
Merrem doses given; no adverse effects noted by nurse or reported by patient at this time. Temp 98.0.Will cont. to monitor.
[2021-03-11] MEDS ORDERED: ATORVASTATIN CALCIUM 10 MG TABLET. PO SCH (21:00)
[2021-03-11] MEDS: LACTOBACILLUS RHAMNOSUS GG 1 CAPSULE. PO SCH (21:30)
[2021-03-11] MEDS: INSULIN GLARGINE SYRINGE. SQ SCH (21:30)
--- NOTE | 2021-03-11 21:30 | NUR ---
Patient's FSBS at 2042 was 93. Gave patient small amount of jello at 1999; patient with delayed swallowing but without coughing or choking, will make patient NPO at this time. 2100 Lantis insulin dose held secondary to low blood sugar and NPO status, paged Dr. Ayers. Dr. Ayers returned page, notified of above and nursing concern with potential aspiration. Dr. Ayers stated to hold insulin Lantis and follow FSBS using sliding scale to be ordered. Patient also to have speech evaluate in AM with swallow study. See orders.
[2021-03-11] MEDS: CLOTRIMAZOLE 1% VAGINAL CREAM 45GM TUBE. VG SCH (21:36)
[2021-03-11] MEDS ORDERED: DEXTROSE 50% 25 GM / 50ML DISP.SYRIN. IV PRN (21:45)
[2021-03-11] MEDS: IV NORMAL SALINE 1000ML BAG 1,000 ML IV SCH (23:43)
[2021-03-11] MEDS: MEROPENEM 500 MG in IV NORMAL SALINE 50ML 50 ML IV SCH (23:51)
[2021-03-12] VITALS (31 sets, daily range): BP systolic 84–240; BP diastolic 50–134
--- NOTE | 2021-03-12 01:34 | NUR ---
Patient given Ativan 4MG IVP for CIWA 16 at 0050 with good response in decrease of CIWA. Patient developed increasing episodes of apnea episodes at 0100 with O2 saturations decreasing to mid 80's requiring O2 increased to simple mask at 6L which increased saturation to low 90's. Patient continued to decrease O2 saturation to upper 70's and RT called at [address] patient on BiPap. While speaking to RT, patient's heart rhythm changed from SR to AFib rate 60's and at 0128 to Idioventricular rhythm with rate 50. At 0131 witnessed patient without respirations and rhythm now asystole--CPR started, Code Blue called (time 0134 per LIfepak). See tele strips and Code Blue sheet.
--- NOTE | 2021-03-12 01:40 | NUR ---
Dr Armen cervantes, returned page, notified of patient coding requiring CPR, one dose of Epi, Flumazenil administered for reversal of Ativan and patient now being intubated by ED , Orders received to consult Dr Hernadez.
[2021-03-12] MEDS ORDERED: VECURONIUM BOLUS 10 MG VIAL. IV PRN (01:45)
[2021-03-12] MEDS ORDERED: MIDAZOLAM 100mg/100ml NS BAG 100 ML IV PRN (01:45)
[2021-03-12] MEDS ORDERED: EPINEPHrine SYRINGE 1 MG/10 ML SYRINGE ONE (02:04)
[2021-03-12 02:11] LABS: BASO # 0.2 x10^3/uL (0.0-0.2); BASO % 1 % (0-3); EOS # 0.1 x10^3/uL (0.0-0.7); EOS % 1 % (0-3); HEMATOCRIT 37.9 % (36.0-47.0); HEMOGLOBIN 12.4 g/dL (12.0-15.5); LYMPH # 1.5 x10^3/uL (1.0-4.8); LYMPH % 5 % (24-48); MEAN CORPUSCULAR HEMOGLOBIN 31 pg (25-35); MEAN CORPUSCULAR HGB CONC 33 g/dL (31-37); MEAN CORPUSCULAR VOLUME 93 fL (79-100); MONO # 2.2 x10^3/uL (0.0-1.1); MONO % 7 % (0-9); NEUT # 26.7 x10^3/uL (1.8-7.7); NEUT % 87 % (31-73); PLATELET COUNT 201 x10^3/uL (140-400); RED BLOOD COUNT 4.06 x10^6/uL (3.50-5.40); RED CELL DISTRIBUTION WIDTH 16.3 % (11.5-14.5); WHITE BLOOD COUNT 30.7 x10^3/uL (4.0-11.0)
[2021-03-12] MEDS: PROPOFOL 100 ML IV PRN ×3 (02:13→16:18)
[2021-03-12 02:19] LABS: CALCIUM 7.9 mg/dL (8.5-10.1); CREATININE 0.7 mg/dL (0.6-1.0); GFR 85.6
[2021-03-12 02:23] LABS: POTASSIUM 2.9 mmol/L (3.5-5.1)
--- NOTE | 2021-03-12 02:40 | NUR ---
Critical K+ 2.9 called by lab at 022, Dr Ayers paged at 0230. Dr Ayers returned page at 0230, notified of critical K+, orders received for KCL 10MEQ IV TRO 1 hour for total of 4 doses (40MEQ) and rechieck K+ and Mg+. With shortage of 10MEQ premix bags, per pharmacy, order placed for KCL 20MEQ IV TRO 2HRS for total of 2 dose (40MEQ). Addendum: 03/12/21 at 8058 by PIOTR COPPOLA RN Amended: Links added.
[2021-03-12] MEDS: POTASSIUM CHLORIDE 20MEQ 100 ML IV SCH ×2 (02:59→05:18)
[2021-03-12 03:38] LABS: BASE EXCESS ABG 5 mmol/L (-3-3); FIO2 ABG 100; HCO3 ABG 29 mmol/L (21-28); PCO2 ABG 45 mmHg (35-46); PO2 ABG 75 mmHg (65-108); SAT O2 ABG 95 % (92-99)
--- NOTE | 2021-03-12 03:42 | NUR ---
central sterile supply technician called regarding results of PCXR and KUB. Per Dr Moctezuma, Radiologist, ETT and OG in correct placement and patient has a small infiltrate in right lower lobe.
[2021-03-12] MEDS ORDERED: ROCURONIUM 50 MG/5 ML VIAL. ONE (03:52)
[2021-03-12] MEDS ORDERED: ETOMIDATE 20 MG/10 ML VIAL. IV ONE (03:53)
--- NOTE | 2021-03-12 04:00 | NUR ---
Call patient's son, López, notified of code blue/intubation and event leading up to change in status and plan of care. Also discussed need for PICC/Central line; all questions answered and consent obtained from son for PICC line or Central line if unable to place PICC; consent verified by BETHANY Diaz.
--- NOTE | 2021-03-12 04:36 | PHYS DOC ---
CODE REPORT CODE REPORT Responded to overhead CODE BLUE. Per RN report patient is a 60-year-old female with history of alcohol abuse who is admitted with sepsis and severe alcohol withdrawal. Just prior to cardiac arrest patient had been given Ativan for high CIWA. Nursing noted sinus tach transition to a brief run of atrial fibrillation followed by bradycardia and then eventually a PEA arrest. During this she aspirated a large amount of vomitus. Code was called at 0134, she was given 1 round of epinephrine and a dose of flumazenil by nursing staff prior to my arrival to the bedside. At the same time as my arrival, 0136, patient had ROSC and was found to be hypertensive and tachycardic. Was persistently satting 83% despite uaf-dnlia-tfvb ventilation. Decision was made to intubate the patient with 10 mg of etomidate, 80 mg of rocuronium. Emergent situation, no consent was obtained. First-pass success with 7.5 tube position at 22 cm at the teeth. Video laryngoscopy, S3 blade. Grade 1 view. Vomitus present at the level of the glottis. Verbal orders were given to nursing staff for Versed and propofol drips per protocol in order to treat alcohol withdrawal (ROSALIND receptor). Given the administration of flumazenil, fentanyl drip ordered to aid in sedation until flumazenil can be eliminated. JANI REYNAGA MD Mar 12, 2021 04:36
[2021-03-12] MEDS ORDERED: PANTOPRAZOLE 40 MG TABLET.DR. PO SCH (07:30)
[2021-03-12] MEDS: MEROPENEM 500 MG in IV NORMAL SALINE 50ML 50 ML IV SCH ×4 (07:51→23:52)
[2021-03-12] MEDS ORDERED: INSULIN LISPRO 300 UNITS/3 ML VIAL. SQ SCH ×2 (08:00)
--- NOTE | 2021-03-12 08:03 | RAD ---
EXAM: Chest, single view. HISTORY: Intubation. COMPARISON: 03/10/2021 FINDINGS: A frontal view of the chest is obtained. There is an endotracheal tube within the distal tr achea, with the tip approximately 2.2 cm from the ilya. There is a nasogastric tube within the stom ach, with the side-port at or near the gastroesophageal junction. There is diffuse central predominan t interstitial infiltrate. There is enlargement of the cardiac silhouette. There is no pleural effusi on or pneumothorax. IMPRESSION: 1. Endotracheal tube within the mid to distal trachea and nasogastric tube within the proximal stomac h, described above. 2. Diffuse central predominant interstitial infiltrate and prominent cardiac silhouette. Electronically signed by: Frida Zaman MD (03/12/2021 8:01 AM) [id number]
[2021-03-12 08:40] LABS: MAGNESIUM 1.5 mg/dL (1.8-2.4); POTASSIUM 3.3 mmol/L (3.5-5.1)
[2021-03-12] MEDS ORDERED: POTASSIUM BICARB 20 MEQ EFFERVESCENT TABLET. PEG ONE (08:45)
--- NOTE | 2021-03-12 08:49 | PDOC ---
[employer] PROGRESS NOTE Date of Service DOS: DATE: 03/12/21 TIME: 08:40 Chief Complaint Chief Complaint A/P: Septic shock Renal abscess UTI (urinary tract infection) - Acute pyelonephritis Gram negative bacteremia - ID consulted Hypokalemia Hypomagnesemia Elevated troponin Acute encephalopathy - sepsis vs ETOH/benzo withdrawal. On CIWA and treating sepsis Lactic acidosis - sepsis vs seizure Acute kidney injury - vasomotor nephropathy from sepsis Hyponatremia - likely hypovolemic, will monitor ETOH dependence, recently discharged from rehab facility. Elevated troponin - unclear etiology, likely demand from sepsis. Cardiology consulted FEN - regular diet PPX - heparin FULL CODE Dispo - transfer to ICU History of Present Illness History of Present Illness Ms Barber is a 60-year-old female who presented via EMS to [facility] in [place] with report of altered mental status. Patient reportedly was found laying across the toilet resting her head in the shower by her son with altered mental state. Patient does have a history of alcohol abuse and recently was discharged from rehab after she was hospitalized at [facility]. EMS reports noting many empty beer cans found in the home. Patient does report drinking recently. Patient reports nausea and vomiting. Patient denies headache or neck pain. Patient reports she feels "ill ". Patient has received [employer] Covid vaccination. No recent sick contacts EKG Sinus tachycardia at 129bpm, occasional PVC, NO ST elevation, QRS 108ms, QT/QTc 326/479ms Initial labs NA 120 6K3.3, BUN 14, CR 1.3, glucose 199, magnesium 1.4, bilirubin 1.6, AST 36 ALT 26 alk phos 4 3, albumin 2.4, troponin 0.05 7.2179 0.291, ammonia 39, lactic acid 8.3, ethanol undetectable urine benzodiazepines positive COVID-19 rapid PCR negative, urinalysis positive for leuk esterase and nitrates. Blood cultures positive for 2 out of 4 bottles gram-negative adryan Chest x-ray stable. CT head/cervical spine without acute finding. CTA chest and abdomen/pelvis w/ IV contrast obtained with findings concerning for right sided renal abscess. Empiric antibiotic coverage added with vancomycin. Transferred to [facility] for further care. 03/11: Seen bedside, confused, tachycardic, asking if she can have some xanax. Not oriented, tachycardic, blood cultures notes. Transferred to ICU for worsening mental status, concern for seizure prior to arrival and impending potential septic shock. 03/12: This patient the ICU overnight that CODE BLUE was called. I discussion with ED attending (Dr. Hernández); patient went into A. fib and then subsequently PEA. She was intubated for airway protection, but there was some concern for a spiration. Chest x-ray showed diffuse central predominant infiltrates. We will continue IV antibiotics, per ID. Per Dr. More, renal abscess under 5 cm code be managed with antibiotics alone. Will monitor blood cultures and urine cultures from [facility], however if causative organism is uncertain, simply abscess could be beneficial to guide therapy. Critical care time 30 minutes spent reviewing charts, reviewing labs, imaging, discussion with RN. Vitals/I&O Vitals/I&O: Vital Signs Date Time Temp Pulse Resp B/P (MAP) Pulse Ox O2 Delivery O2 Flow Rate FiO2 03/12/21 08:29 100 Ventilator 03/12/21 08:21 77 16 112/62 03/12/21 07:20 99.1 99.1 03/12/21 04:00 3.0 I & O 03/11/21 03/11/21 03/12/21 15:00 23:00 07:00 Intake Total 0 ml 291 ml Output Total 300 ml 280 ml Balance 0 ml -300 ml 11 ml Physical Exam General: Alert Heart: Regular rate Lungs: Clear Abdomen: Soft Extremities: No edema, Normal pulses Skin: No breakdown, No significant lesion Labs Labs: Laboratory Tests Test 03/11/21 09:12 03/11/21 10:11 03/11/21 11:46 03/11/21 15:29 Glucose (Fingerstick) 145 mg/dL (70-99) 164 mg/dL (70-99) Prothrombin Time 13.6 SEC (11.7-14.0) Prothromb Time International Ratio 1.0 (0.8-1.1) Activated Partial Thromboplast Time 32 SEC (24-38) Magnesium Level 1.6 mg/dL (1.8-2.4) Troponin I Quantitative 0.431 ng/mL (0.000-0.055) Triglycerides Level 268 mg/dL (0-150) Cholesterol Level 163 mg/dL (0-200) LDL Cholesterol, Calculated 101 mg/dL (0-100) VLDL Cholesterol, Calculated 54 mg/dL (0-40) Non-HDL Cholesterol Calculated 155 mg/dL (0-129) HDL Cholesterol 8 mg/dL (40-60) Cholesterol/HDL Ratio 20.4 Lactic Acid Level 1.0 mmol/L (0.4-2.0) Ammonia 24 mcmol/L (11-34) Procalcitonin 53.07 ng/mL (0.00-0.10) Test 03/11/21 20:43 03/12/21 02:00 03/12/21 03:28 Glucose (Fingerstick) 93 mg/dL (70-99) White Blood Count 30.7 x10^3/uL (4.0-11.0) Red Blood Count 4.06 x10^6/uL (3.50-5.40) Hemoglobin 12.4 g/dL (12.0-15.5) Hematocrit 37.9 % (36.0-47.0) Mean Corpuscular Volume 93 fL (79-100) Mean Corpuscular Hemoglobin 31 pg (25-35) Mean Corpuscular Hemoglobin Concent 33 g/dL (31-37) Red Cell Distribution Width 16.3 % (11.5-14.5) Platelet Count 201 x10^3/uL (140-400) Neutrophils (%) (Auto) 87 % (31-73) Lymphocytes (%) (Auto) 5 % (24-48) Monocytes (%) (Auto) 7 % (0-9) Eosinophils (%) (Auto) 1 % (0-3) Basophils (%) (Auto) 1 % (0-3) Neutrophils # (Auto) 26.7 x10^3/uL (1.8-7.7) Lymphocytes # (Auto) 1.5 x10^3/uL (1.0-4.8) Monocytes # (Auto) 2.2 x10^3/uL (0.0-1.1) Eosinophils # (Auto) 0.1 x10^3/uL (0.0-0.7) Basophils # (Auto) 0.2 x10^3/uL (0.0-0.2) Sodium Level 131 mmol/L (136-145) Potassium Level 2.9 mmol/L (3.5-5.1) Chloride Level 95 mmol/L (98-107) Carbon Dioxide Level 33 mmol/L (21-32) Anion Gap 3 (6-14) Blood Urea Nitrogen 8 mg/dL (7-20) Creatinine 0.7 mg/dL (0.6-1.0) Estimated GFR (Cockcroft-Gault) 85.6 Glucose Level 197 mg/dL (70-99) Calcium Level 7.9 mg/dL (8.5-10.1) O2 Saturation 95 % (92-99) Arterial Blood pH 7.44 (7.35-7.45) Arterial Blood pCO2 at Patient Temp 45 mmHg (35-46) Arterial Blood pO2 at Patient Temp 75 mmHg (65-108) Arterial Blood HCO3 29 mmol/L (21-28) Arterial Blood Base Excess 5 mmol/L (-3-3) FiO2 100 Comment Review of Relevant I have reviewed the following items celeste (where applicable) has been applied. Medications: Current Medications Medications (Trade) Dose Ordered Sig/Radha Route PRN Reason Start Time Stop Time Status Last Admin Dose Admin Levofloxacin/ Dextrose 150 ml @ 100 mls/hr Q24H IV 03/11/21 12:00 03/11/21 11:21 Linezolid/Dextrose 300 ml @ 300 mls/hr Q12HR IV 03/11/21 12:00 03/11/21 20:51 Aspirin (Ecotrin) 81 mg DAILYWBKFT PO 03/11/21 12:00 03/11/21 13:00 Carvedilol (Coreg) 12.5 mg BIDWMEALS PO 03/11/21 17:00 03/11/21 17:37 Meropenem 500 mg/ Sodium Chloride 50 ml @ 100 mls/hr Q6HRS IV 03/12/21 00:00 03/12/21 07:51 Clotrimazole (Mycelex-7) 1 benito BID VG 03/11/21 21:00 03/18/21 20:59 03/11/21 21:36 Meropenem 100 mg/ Sodium Chloride 50 ml @ 200 mls/hr 1X ONCE IV 03/11/21 16:15 03/11/21 16:29 DC 03/11/21 16:15 Meropenem 400 mg/ Sodium Chloride 50 ml @ 100 mls/hr 1X ONCE IV 03/11/21 16:30 03/11/21 16:59 DC 03/11/21 17:29 Sodium Chloride 1,000 ml @ 1,000 mls/hr 1X ONCE IV 03/11/21 17:00 03/11/21 17:59 DC 03/11/21 17:30 Magnesium Sulfate 50 ml @ 25 mls/hr 1X ONCE IV 03/11/21 18:15 03/11/21 20:14 DC 03/11/21 18:27 Sodium Chloride 1,000 ml @ 50 mls/hr Q20H IV 03/11/21 23:15 03/11/21 23:43 Fentanyl Citrate 30 ml @ 2.5 mls/hr CONT PRN IV SEE PROTOCOL 03/12/21 01:45 03/12/21 02:13 Propofol 100 ml @ 2.022 mls/ hr CONT PRN IV PER PROTOCOL 03/12/21 01:45 03/12/21 02:13 Potassium Chloride/Water 100 ml @ 50 mls/hr Q2HR IV 03/12/21 03:00 03/12/21 05:59 DC 03/12/21 05:18 Justifications for Admission Other Justification IVETT TESFAYE MD Mar 12, 2021 08:49
--- NOTE | 2021-03-12 08:49 | PDOC ---
Infectious Disease Note Subjective: Subjective Patient was transferred to ICU last p.m. due to concern for septic shock Early this morning status post cardiac arrest and underwent intubation Patient was started on CIWA protocol with Ativan 4 mg given, oxygenation decreased, patient subsequently had A. fib with idioventricular rhythm Went into cardiac arrest around 1:30 AM T-max 100 degrees Patient sedated but opens eyes transiently this a.m. Discussed with nursing staff Vital Signs: Vital Signs Vital Signs Date Time Temp Pulse Resp B/P (MAP) Pulse Ox O2 Delivery O2 Flow Rate FiO2 03/12/21 08:21 77 16 112/62 100 Ventilator 03/12/21 07:20 99.1 99.1 03/12/21 04:00 3.0 Physical Exam: PHYSICAL EXAM GENERAL: Intubated sedated HEENT: Normocephalic, atraumatic. Anicteric. Mild conjunctival irritation, ETT/OGT present NECK: Supple. No tenderness. LUNGS: Clear bilaterally. HEART: S1, S2, tachycardia. No murmurs. ABDOMEN: Soft, mild diffuse tenderness, slightly distended. Bowel sounds present. No guarding, no rigidity. EXTREMITIES: No edema, no cyanosis. DERMATOLOGIC: Warm, dry. No generalized rash. NEUROLOGIC: Intubated, sedated, arousable with verbal stimuli opens eyes transiently, was able to move all extremities yesterday Babin in place Medications: Inpatient Meds: Medications reviewed. Labs: Lab Laboratory Tests Test 03/11/21 09:12 03/11/21 10:11 03/11/21 11:46 03/11/21 15:29 Glucose (Fingerstick) 145 mg/dL (70-99) 164 mg/dL (70-99) Prothrombin Time 13.6 SEC (11.7-14.0) Prothromb Time International Ratio 1.0 (0.8-1.1) Activated Partial Thromboplast Time 32 SEC (24-38) Magnesium Level 1.6 mg/dL (1.8-2.4) Troponin I Quantitative 0.431 ng/mL (0.000-0.055) Triglycerides Level 268 mg/dL (0-150) Cholesterol Level 163 mg/dL (0-200) LDL Cholesterol, Calculated 101 mg/dL (0-100) VLDL Cholesterol, Calculated 54 mg/dL (0-40) Non-HDL Cholesterol Calculated 155 mg/dL (0-129) HDL Cholesterol 8 mg/dL (40-60) Cholesterol/HDL Ratio 20.4 Lactic Acid Level 1.0 mmol/L (0.4-2.0) Ammonia 24 mcmol/L (11-34) Procalcitonin 53.07 ng/mL (0.00-0.10) Test 03/11/21 20:43 03/12/21 02:00 03/12/21 03:28 Glucose (Fingerstick) 93 mg/dL (70-99) White Blood Count 30.7 x10^3/uL (4.0-11.0) Red Blood Count 4.06 x10^6/uL (3.50-5.40) Hemoglobin 12.4 g/dL (12.0-15.5) Hematocrit 37.9 % (36.0-47.0) Mean Corpuscular Volume 93 fL (79-100) Mean Corpuscular Hemoglobin 31 pg (25-35) Mean Corpuscular Hemoglobin Concent 33 g/dL (31-37) Red Cell Distribution Width 16.3 % (11.5-14.5) Platelet Count 201 x10^3/uL (140-400) Neutrophils (%) (Auto) 87 % (31-73) Lymphocytes (%) (Auto) 5 % (24-48) Monocytes (%) (Auto) 7 % (0-9) Eosinophils (%) (Auto) 1 % (0-3) Basophils (%) (Auto) 1 % (0-3) Neutrophils # (Auto) 26.7 x10^3/uL (1.8-7.7) Lymphocytes # (Auto) 1.5 x10^3/uL (1.0-4.8) Monocytes # (Auto) 2.2 x10^3/uL (0.0-1.1) Eosinophils # (Auto) 0.1 x10^3/uL (0.0-0.7) Basophils # (Auto) 0.2 x10^3/uL (0.0-0.2) Sodium Level 131 mmol/L (136-145) Potassium Level 2.9 mmol/L (3.5-5.1) Chloride Level 95 mmol/L (98-107) Carbon Dioxide Level 33 mmol/L (21-32) Anion Gap 3 (6-14) Blood Urea Nitrogen 8 mg/dL (7-20) Creatinine 0.7 mg/dL (0.6-1.0) Estimated GFR (Cockcroft-Gault) 85.6 Glucose Level 197 mg/dL (70-99) Calcium Level 7.9 mg/dL (8.5-10.1) O2 Saturation 95 % (92-99) Arterial Blood pH 7.44 (7.35-7.45) Arterial Blood pCO2 at Patient Temp 45 mmHg (35-46) Arterial Blood pO2 at Patient Temp 75 mmHg (65-108) Arterial Blood HCO3 29 mmol/L (21-28) Arterial Blood Base Excess 5 mmol/L (-3-3) FiO2 100 Objective: Assessment: Gram-negative bacteremia 4 out of 4 bottles present on admission at [facility] Septic Shock from gram-negative sepsis Leukocytosis and lactic acidosis, source genitourinary. Urinary tract infection with renal mass, possible renal abscess, not a candidate for IR drainage. EtOH withdrawal Status post A. fib, idioventricular rhythm, asystole, status post cardiac arrest 03/04/2021 Acute hypoxic failure status post intubation 03/12/2021 Acute kidney injury. Febrile illness. Leukocytosis and bandemia. Hyponatremia. History of kidney stone. Encephalopathy, appears multifactorial including metabolic and anxiolytic medication ETOH dependence, recently discharged from rehab facility. Elevated troponin. Hypokalemia and hypomagnesemia. Cirrhosis History of hyperammonemia MARTINEZ suspect with the underlying benzodiazepine dependence Hypertension with hypertensive urgency diabetes mellitus 2 tobacco dependence History of vaginitis. ALLERGIES TO PENICILLIN WITH HIVES AND THROAT SWELLING. Tolerated meropenem test dose well on 03/11/2021 Patient had been recently discharged from [facility] [place] January 2021 for planned EtOH withdrawal., Benzodiazepine dependence, hypertension, discharged in February 2021 Medical records reviewed She presented with alcohol withdrawal undergoing protocol and subsequently had PEA, cardiac arrest and respiratory failure requiring intubation Patient had achieved spontaneous circulation after trial CPR and bagging with a BVM. She did not require defibrillation. It was attributed to overmedication to treat alcohol withdrawal at that hospitalization. History of hypertensive urgency from alcohol withdrawal/detoxification According to staff here patient's son had mentioned that she had been on hospice treatment due to recurrent alcohol dependence, smoking, noncompliance, recurrent cardiac arrest, electrolyte imbalance Plan: Plan of Care Continue meropenem patient has tolerated IT well DC Levaquin and Zyvox Clotrimazole vaginal cream Maintain aspiration precautions. Monitor labs and cultures. Monitor blood cultures and urine cultures from [facility]. Discussed with micro lab this morning further ID still pending at this time IR has evaluated the patient. The patient is not a candidate for drainage at this time. The patient may need transfer to tertiary care center with urology consultation if continues to worsen or does not improve Patient will need repeat CT abdomen and pelvis imaging. Critically ill. Prognosis guarded Discussed with Dr. Vi yin a.julio. Discussed with nursing staff. QUINTON DANIELS MD Mar 12, 2021 08:48
[2021-03-12] MEDS ORDERED: ASPIRIN ENTERIC COATED 81 MG TABLET.DR. PO SCH (09:00)
[2021-03-12] MEDS ORDERED: MAGNESIUM SULFATE 4GM 100 ML IV ONE (09:00)
--- NOTE | 2021-03-12 09:20 | PDOC ---
PULMONARY PROGRESS NOTES DATE: 03/12/21 TIME: 09:20 Vitals Vital Signs Date Time Temp Pulse Resp B/P (MAP) Pulse Ox O2 Delivery O2 Flow Rate FiO2 03/12/21 08:34 Mechanical Ventilator 03/12/21 08:29 100 03/12/21 08:21 77 16 112/62 03/12/21 07:20 99.1 99.1 03/12/21 04:00 3.0 Lungs: Clear Labs Laboratory Tests Test 03/10/21 22:43 03/11/21 04:50 03/11/21 07:30 03/11/21 09:12 Glucose (Fingerstick) 128 mg/dL (70-99) 145 mg/dL (70-99) Sodium Level 127 mmol/L (136-145) Potassium Level 3.6 mmol/L (3.5-5.1) Chloride Level 94 mmol/L (98-107) Carbon Dioxide Level 23 mmol/L (21-32) Anion Gap 10 (6-14) Blood Urea Nitrogen 11 mg/dL (7-20) Creatinine 0.6 mg/dL (0.6-1.0) Estimated GFR (Cockcroft-Gault) 102.3 Glucose Level 97 mg/dL (70-99) Calcium Level 8.3 mg/dL (8.5-10.1) White Blood Count 32.6 x10^3/uL (4.0-11.0) Red Blood Count 4.20 x10^6/uL (3.50-5.40) Hemoglobin 13.0 g/dL (12.0-15.5) Hematocrit 40.0 % (36.0-47.0) Mean Corpuscular Volume 95 fL (79-100) Mean Corpuscular Hemoglobin 31 pg (25-35) Mean Corpuscular Hemoglobin Concent 33 g/dL (31-37) Red Cell Distribution Width 16.4 % (11.5-14.5) Platelet Count 171 x10^3/uL (140-400) Neutrophils (%) (Auto) 87 % (31-73) Lymphocytes (%) (Auto) 4 % (24-48) Monocytes (%) (Auto) 9 % (0-9) Eosinophils (%) (Auto) 0 % (0-3) Basophils (%) (Auto) 0 % (0-3) Neutrophils # (Auto) 28.3 x10^3/uL (1.8-7.7) Lymphocytes # (Auto) 1.4 x10^3/uL (1.0-4.8) Monocytes # (Auto) 2.8 x10^3/uL (0.0-1.1) Eosinophils # (Auto) 0.1 x10^3/uL (0.0-0.7) Basophils # (Auto) 0.0 x10^3/uL (0.0-0.2) Segmented Neutrophils % 83 % (35-66) Band Neutrophils % 10 % (0-9) Lymphocytes % 2 % (24-48) Monocytes % 3 % (0-10) Metamyelocytes % 2 % (0-0) Toxic Vacuolation Slight Platelet Estimate Adequate (ADEQUATE) Test 03/11/21 10:11 03/11/21 11:46 03/11/21 15:29 03/11/21 20:43 Prothrombin Time 13.6 SEC (11.7-14.0) Prothromb Time International Ratio 1.0 (0.8-1.1) Activated Partial Thromboplast Time 32 SEC (24-38) Magnesium Level 1.6 mg/dL (1.8-2.4) Troponin I Quantitative 0.431 ng/mL (0.000-0.055) Triglycerides Level 268 mg/dL (0-150) Cholesterol Level 163 mg/dL (0-200) LDL Cholesterol, Calculated 101 mg/dL (0-100) VLDL Cholesterol, Calculated 54 mg/dL (0-40) Non-HDL Cholesterol Calculated 155 mg/dL (0-129) HDL Cholesterol 8 mg/dL (40-60) Cholesterol/HDL Ratio 20.4 Glucose (Fingerstick) 164 mg/dL (70-99) 93 mg/dL (70-99) Lactic Acid Level 1.0 mmol/L (0.4-2.0) Ammonia 24 mcmol/L (11-34) Procalcitonin 53.07 ng/mL (0.00-0.10) Test 03/12/21 02:00 03/12/21 03:28 03/12/21 08:05 White Blood Count 30.7 x10^3/uL (4.0-11.0) Red Blood Count 4.06 x10^6/uL (3.50-5.40) Hemoglobin 12.4 g/dL (12.0-15.5) Hematocrit 37.9 % (36.0-47.0) Mean Corpuscular Volume 93 fL (79-100) Mean Corpuscular Hemoglobin 31 pg (25-35) Mean Corpuscular Hemoglobin Concent 33 g/dL (31-37) Red Cell Distribution Width 16.3 % (11.5-14.5) Platelet Count 201 x10^3/uL (140-400) Neutrophils (%) (Auto) 87 % (31-73) Lymphocytes (%) (Auto) 5 % (24-48) Monocytes (%) (Auto) 7 % (0-9) Eosinophils (%) (Auto) 1 % (0-3) Basophils (%) (Auto) 1 % (0-3) Neutrophils # (Auto) 26.7 x10^3/uL (1.8-7.7) Lymphocytes # (Auto) 1.5 x10^3/uL (1.0-4.8) Monocytes # (Auto) 2.2 x10^3/uL (0.0-1.1) Eosinophils # (Auto) 0.1 x10^3/uL (0.0-0.7) Basophils # (Auto) 0.2 x10^3/uL (0.0-0.2) Sodium Level 131 mmol/L (136-145) Potassium Level 2.9 mmol/L (3.5-5.1) 3.3 mmol/L (3.5-5.1) Chloride Level 95 mmol/L (98-107) Carbon Dioxide Level 33 mmol/L (21-32) Anion Gap 3 (6-14) Blood Urea Nitrogen 8 mg/dL (7-20) Creatinine 0.7 mg/dL (0.6-1.0) Estimated GFR (Cockcroft-Gault) 85.6 Glucose Level 197 mg/dL (70-99) Calcium Level 7.9 mg/dL (8.5-10.1) O2 Saturation 95 % (92-99) Arterial Blood pH 7.44 (7.35-7.45) Arterial Blood pCO2 at Patient Temp 45 mmHg (35-46) Arterial Blood pO2 at Patient Temp 75 mmHg (65-108) Arterial Blood HCO3 29 mmol/L (21-28) Arterial Blood Base Excess 5 mmol/L (-3-3) FiO2 100 Magnesium Level 1.5 mg/dL (1.8-2.4) Laboratory Tests Test 03/11/21 10:11 03/11/21 11:46 03/11/21 15:29 03/11/21 20:43 Prothrombin Time 13.6 SEC (11.7-14.0) Prothromb Time International Ratio 1.0 (0.8-1.1) Activated Partial Thromboplast Time 32 SEC (24-38) Magnesium Level 1.6 mg/dL (1.8-2.4) Troponin I Quantitative 0.431 ng/mL (0.000-0.055) Triglycerides Level 268 mg/dL (0-150) Cholesterol Level 163 mg/dL (0-200) LDL Cholesterol, Calculated 101 mg/dL (0-100) VLDL Cholesterol, Calculated 54 mg/dL (0-40) Non-HDL Cholesterol Calculated 155 mg/dL (0-129) HDL Cholesterol 8 mg/dL (40-60) Cholesterol/HDL Ratio 20.4 Glucose (Fingerstick) 164 mg/dL (70-99) 93 mg/dL (70-99) Lactic Acid Level 1.0 mmol/L (0.4-2.0) Ammonia 24 mcmol/L (11-34) Procalcitonin 53.07 ng/mL (0.00-0.10) Test 03/12/21 02:00 03/12/21 03:28 03/12/21 08:05 White Blood Count 30.7 x10^3/uL (4.0-11.0) Red Blood Count 4.06 x10^6/uL (3.50-5.40) Hemoglobin 12.4 g/dL (12.0-15.5) Hematocrit 37.9 % (36.0-47.0) Mean Corpuscular Volume 93 fL (79-100) Mean Corpuscular Hemoglobin 31 pg (25-35) Mean Corpuscular Hemoglobin Concent 33 g/dL (31-37) Red Cell Distribution Width 16.3 % (11.5-14.5) Platelet Count 201 x10^3/uL (140-400) Neutrophils (%) (Auto) 87 % (31-73) Lymphocytes (%) (Auto) 5 % (24-48) Monocytes (%) (Auto) 7 % (0-9) Eosinophils (%) (Auto) 1 % (0-3) Basophils (%) (Auto) 1 % (0-3) Neutrophils # (Auto) 26.7 x10^3/uL (1.8-7.7) Lymphocytes # (Auto) 1.5 x10^3/uL (1.0-4.8) Monocytes # (Auto) 2.2 x10^3/uL (0.0-1.1) Eosinophils # (Auto) 0.1 x10^3/uL (0.0-0.7) Basophils # (Auto) 0.2 x10^3/uL (0.0-0.2) Sodium Level 131 mmol/L (136-145) Potassium Level 2.9 mmol/L (3.5-5.1) 3.3 mmol/L (3.5-5.1) Chloride Level 95 mmol/L (98-107) Carbon Dioxide Level 33 mmol/L (21-32) Anion Gap 3 (6-14) Blood Urea Nitrogen 8 mg/dL (7-20) Creatinine 0.7 mg/dL (0.6-1.0) Estimated GFR (Cockcroft-Gault) 85.6 Glucose Level 197 mg/dL (70-99) Calcium Level 7.9 mg/dL (8.5-10.1) O2 Saturation 95 % (92-99) Arterial Blood pH 7.44 (7.35-7.45) Arterial Blood pCO2 at Patient Temp 45 mmHg (35-46) Arterial Blood pO2 at Patient Temp 75 mmHg (65-108) Arterial Blood HCO3 29 mmol/L (21-28) Arterial Blood Base Excess 5 mmol/L (-3-3) FiO2 100 Magnesium Level 1.5 mg/dL (1.8-2.4) Medications Active Scripts Medications Dose Route/Sig Max Daily Dose Days Date Category Gabapentin 600 Mg Tablet 300 Mg PO BID 03/10/21 Reported Atorvastatin Calcium 10 Mg Tablet 10 Mg PO HS 03/10/21 Reported Polar Freeze Gel (Menthol/Camphor) 120 Gm Gel..gram. 1 Vance TP TID 03/10/21 Reported Lantus (Insulin Glargine,Hum.rec.anlog) 100 Unit/1 Ml Vial 38 Unit SQ HS 03/10/21 Reported Omeprazole 20 Mg Capsule.dr 1 Cap PO DAILY 10/16/15 Reported Ibuprofen 400 Mg Tablet 400 Mg PO PRN PRN 10/16/15 Reported Mucinex (Guaifenesin) 600 Mg Tablet.er 1 Tab PO BID 10/16/15 Reported Flonase Allergy Relief (Fluticasone Propionate) 9.9 Ml [place].susp 2 Sprays NS DAILY 10/16/15 Reported Zyrtec (Cetirizine Hcl) 10 Mg Tablet 1 Tab PO DAILY 10/16/15 Reported Carvedilol (Carvedilol) 12.5 Mg Tablet 1 Tab PO BID 10/16/15 Reported Aspir 81 (Aspirin) 81 Mg Tablet.dr 1 Tab PO DAILY 10/16/15 Reported Alprazolam 0.25 Mg Tablet 1 Tab PO TID PRN PRN 10/16/15 Reported Impression . Full note dictated Discussed with RN Continue current support DANIELLE LOMAS MD Mar 12, 2021 09:20
[2021-03-12] MEDS: CLOTRIMAZOLE 1% VAGINAL CREAM 45GM TUBE. VG SCH ×2 (09:59→20:47)
[2021-03-12] MEDS: PANTOPRAZOLE IV PUSH 40 MG VIAL. IVP SCH (10:00)
[2021-03-12] MEDS: ASPIRIN ENTERIC COATED 81 MG TABLET.DR. PO SCH (10:02)
[2021-03-12] MEDS: LACTOBACILLUS RHAMNOSUS GG 1 CAPSULE. PO SCH ×2 (10:02→20:46)
[2021-03-12] MEDS: CETIRIZINE HCL 10 MG TABLET. PO SCH (10:03)
[2021-03-12] MEDS: GABAPENTIN 300 MG CAPSULE. PO SCH ×2 (10:03→20:46)
[2021-03-12] MEDS: CARVEDILOL 12.5 MG TABLET. PO SCH ×2 (10:04→17:22)
[2021-03-12] MEDS: NICOTINE 14MG PATCH. TD SCH (10:04)
--- NOTE | 2021-03-12 10:21 | NUR ---
SS following for discharge planning. SS reviewed pt chart and discussed with pt RN. Pt is from home with family and is currently on the vent at 100%. Post code. Pt on Fentanyl and Propofol. Pt on IV Meropenem, IV Zyvox, and IV Levaquin. Not stable. SS will continue to follow for discharge planning.
--- NOTE | 2021-03-12 11:50 | CONS ---
DATE OF CONSULTATION: 03/12/2021 ATTENDING PHYSICIAN: David Lawson DO CONSULTING PHYSICIAN: Liz Hernadez MD REASON FOR CONSULTATION: The patient is seen in Pulmonary consultation at the request of Dr. Lawson for vent management and septic shock. HISTORY OF PRESENT ILLNESS: The patient is a 60-year-old that presented to [facility] with altered mental status. She had a white count of 17,000. She was initially admitted and received IV fluids. Lactic acid was elevated. The x-ray initially revealed no acute process. CT cervical spine revealed no acute findings. The patient had a rapid COVID test, which was negative. She had a CT chest, abdomen and pelvis revealing possible right renal abscess. The patient was started on antibiotics, did not improve. She was transferred to [facility] for further treatment. She eventually got intubated as a result of respiratory distress. She was seen in consultation by Infectious Disease service this morning. She is currently on Levaquin, Zyvox. Interventional radiologist has reviewed her case. She is not a candidate for drainage of the possible abscess. She had a chest x-ray, which I personally reviewed. ET tube is properly positioned. There are diffuse central predominant interstitial infiltrates compatible with pulmonary edema. PAST MEDICAL HISTORY: Alcoholism, gastroesophageal reflux, anxiety, depression, allergic rhinitis. SOCIAL HISTORY: She has a history of alcohol dependence. CURRENT MEDICATIONS: List was reviewed. ALLERGIES: PENICILLIN, AMPICILLIN, ATORVASTATIN, CODEINE, LOSARTAN AND METOPROLOL. PHYSICAL EXAMINATION: VITAL SIGNS: Since admission, she has had a T-max of 100. HEENT: Eyes, the sclerae were nonicteric. NECK: Jugular venous distention was not elevated. Orally placed endotracheal tube. CHEST: Full expansion. LUNGS: Clear. No wheezes. CARDIOVASCULAR: Regular rate and rhythm with S1 and S2, no S3. ABDOMEN: Soft. EXTREMITIES: No clubbing, cyanosis or edema. LABORATORY DATA: White count was elevated at 32,000 with a left shift. Hemoglobin and hematocrit were noted. Arterial blood gas this morning, pH of 7.44, PaCO2 of 45, pO2 of 75. INR was 1.0. Electrolytes were deranged. Potassium was low. BUN was 8, creatinine was 0.7. Procalcitonin was markedly elevated. Albumin was low. IMPRESSION: 1. Acute hypoxemic respiratory failure, multifactorial. 2. Septic shock. 3. Leukocytosis. 4. Urinary tract infection, possible renal abscess. 5. Acute kidney injury. 6. Hypokalemia. 7. Metabolic toxic encephalopathy. 8. Alcohol dependence. PLAN: 1. We will continue current assist control ventilation. 2. Support with IV antibiotics. 3. IV fluids. 4. Empiric antibiotics, Levaquin and Zyvox for now. 5. Follow urine culture and sensitivity. I do appreciate the privilege in sharing in the patient's care. MEI DR: Arianna TID: [id number]
[2021-03-12] MEDS: INSULIN LISPRO 300 UNITS/3 ML VIAL. SQ SCH ×2 (12:00→17:26)
--- NOTE | 2021-03-12 13:36 | NUR ---
pcn, ampicillin, atorvastatin, codeine, losartan, metoprolol Allergies and reactions INR 1.0 BUN 8 Cr 0.7 Platelets 201 Blood culture done na blood culture results Order Verified yes Consent signed obtained from family Previous PICC placement Past Medical/Surgical history and current diagnosis reviewed Patient Medical /Surgical History Related to PICC line placement None Arrhythmias Diabetes Infectious Disease consult Renal consult Septicemia/Bacteremia Special considerations for PICC line placement None Infections PICC placement indication terminal block assembler antibiotic usage, Multiple/ Frequent blood draws, Need for Central Venous Pressure (CVP) monitoring, Poor peripheral intravenous access Total Parenteral Nutrition (TPN) Nasima Broussard RN name of PICC Nurse
--- NOTE | 2021-03-12 13:46 | NUR ---
Procedure: Following complete explanation of the PICC procedure including the indications, risks, and potential complications, informed consent was obtained. The possibility for infection was discussed along with signs, symptoms, and prevention. All the All questions were answered. Written and verbal patient education was provided. Hand hygiene performed. Standardized central line checklist was utilized. The patient was placed in the supine position, the arm was prepped with chlorhexidine and patient draped with maximum sterile barrier. 5 mL 1% lidocaine was infiltrated into the skin to provide local anesthesia. A thorough assessment of Right upper extremity completed. Using real-time ultrasound guidance and standardized micro puncture set, the basilic vein was punctured and a peel away sheath was placed using the modified Seldinger technique. A tip location device was used to ensure adequate catheter placement. The catheter was secured using a securement device and an antimicrobial patch was applied directly on the insertion site followed by a transparent dressing. All ports withdraw blood and flush without resistance. Patient tolerated the procedure without apparent complication(s). 3 Lumen Power PICC placement successful and uncomplicated. Placement verified by EKG tip confirmation system and/or chest x-ray. Tip located in the CAJ Complications none
[2021-03-12] MEDS: HEPARIN for SUB-Q USE 5,000 UNIT/ML VIAL. SQ SCH ×2 (14:28→22:18)
--- NOTE | 2021-03-12 14:46 | PDOC ---
RADHA OSEI [employer] SUPER[employer] 03/12/21 1446: CARDIO Progress Notes Date and Time Date of Service 03/12/21 Time of Evaluation 1320 Subjective Subjective: Other (intubated ) Vitals Vitals Vital Signs Date Time Temp Pulse Resp B/P (MAP) Pulse Ox O2 Delivery O2 Flow Rate FiO2 03/12/21 14:04 62 16 108/57 100 Ventilator 03/12/21 13:51 3.0 03/12/21 11:00 99.0 99.0 Weight Weight [ ] Input and Output Intake and Output Intake and Output 03/12/21 07:00 Intake Total 291 ml Output Total 580 ml Balance -289 ml Intake Oral 0 ml IV Total 291 ml Output Urine Total 500 ml Gastric Drainage Total 80 ml Laboratory Labs Laboratory Tests Test 03/11/21 15:29 03/11/21 20:43 03/12/21 02:00 03/12/21 03:28 Lactic Acid Level 1.0 mmol/L (0.4-2.0) Ammonia 24 mcmol/L (11-34) Procalcitonin 53.07 ng/mL (0.00-0.10) Glucose (Fingerstick) 93 mg/dL (70-99) White Blood Count 30.7 x10^3/uL (4.0-11.0) Red Blood Count 4.06 x10^6/uL (3.50-5.40) Hemoglobin 12.4 g/dL (12.0-15.5) Hematocrit 37.9 % (36.0-47.0) Mean Corpuscular Volume 93 fL (79-100) Mean Corpuscular Hemoglobin 31 pg (25-35) Mean Corpuscular Hemoglobin Concent 33 g/dL (31-37) Red Cell Distribution Width 16.3 % (11.5-14.5) Platelet Count 201 x10^3/uL (140-400) Neutrophils (%) (Auto) 87 % (31-73) Lymphocytes (%) (Auto) 5 % (24-48) Monocytes (%) (Auto) 7 % (0-9) Eosinophils (%) (Auto) 1 % (0-3) Basophils (%) (Auto) 1 % (0-3) Neutrophils # (Auto) 26.7 x10^3/uL (1.8-7.7) Lymphocytes # (Auto) 1.5 x10^3/uL (1.0-4.8) Monocytes # (Auto) 2.2 x10^3/uL (0.0-1.1) Eosinophils # (Auto) 0.1 x10^3/uL (0.0-0.7) Basophils # (Auto) 0.2 x10^3/uL (0.0-0.2) Sodium Level 131 mmol/L (136-145) Potassium Level 2.9 mmol/L (3.5-5.1) Chloride Level 95 mmol/L (98-107) Carbon Dioxide Level 33 mmol/L (21-32) Anion Gap 3 (6-14) Blood Urea Nitrogen 8 mg/dL (7-20) Creatinine 0.7 mg/dL (0.6-1.0) Estimated GFR (Cockcroft-Gault) 85.6 Glucose Level 197 mg/dL (70-99) Calcium Level 7.9 mg/dL (8.5-10.1) O2 Saturation 95 % (92-99) Arterial Blood pH 7.44 (7.35-7.45) Arterial Blood pCO2 at Patient Temp 45 mmHg (35-46) Arterial Blood pO2 at Patient Temp 75 mmHg (65-108) Arterial Blood HCO3 29 mmol/L (21-28) Arterial Blood Base Excess 5 mmol/L (-3-3) FiO2 100 Test 03/12/21 08:05 Potassium Level 3.3 mmol/L (3.5-5.1) Magnesium Level 1.5 mg/dL (1.8-2.4) Microbiology Micro Microbiology 03/11/21 Blood Culture - Preliminary, Resulted NO GROWTH AFTER 1 DAY Physical Exam HEENT: Neck Supple W Full Motion Chest: Symmetric LUNGS: Other (mechanical vent ) Heart: RRR Abdomen: Other (soft ) Extremities: No Edema Neurology: other (sedated ) Assessment Assessment 1. Leukocytosis, lactic acidosis, UTI, fevers, sepsis. CT with concerns for rig ht renal abscess 2. Acute respiratory failure, PEA arrest. 4 mins to ROSC. s/p intubation. No VT/VF 3. Sinus tachycardia; physiologic secondary to above. resolved 4. Mild troponin elevation; highest 0.29. Most probable type II, demand ischemia in setting of above. Echo with preserved LV systolic function 5. CAD; mild, non-obstructive per cath 2013 6. Chronic systolic CHF, dilated cardiomyopathy; Echo 10/03 with LVEF 45%. Follows with [facility] 7. Hypertension; controlled 8. Hyperlipidemia; statin 9. DOMI; improved 10. Diabetes, II 11. Hypothyroidism 12. H/o ETOH abuse; recent discharged from rehab facility. neg upon admission 13. Hypokalemia, hypomagnesemia; replaced Recommendations ASA therapy Secondary prevention Ongoing treatment of sepsis as per ID Lung optimization as per pulmonary Supportive care Consider outpatient ischemic evaluation Justicifation of Admission Dx: Justifications for Admission: Justification of Admission Dx: Yes Comments: Acute respiratory failure PEA arrest Sepsis DURAN BOLAÑOS MD 03/12/212107: CARDIO Progress Notes Assessment Assessment Patient seen and examined. Agree with MANAGER ORDER's assessment and plan Events overnight noted - continue vent management per pulm Slight trop elevation prob demand ischemia 2D echo showed normal LVF Plan ischemic eval as outpatient RADHA OSEI APRN Mar 12, 2021 14:46 DURAN BOLAÑOS MD Mar 12, 2021 21:08
[2021-03-12 16:44] LABS: ALBUMIN 1.8 g/dL (3.4-5.0); DIRECT BILIRUBIN 0.4 mg/dL (0.0-0.2); TOTAL BILIRUBIN 0.6 mg/dL (0.2-1.0); TOTAL PROTEIN 5.3 g/dL (6.4-8.2)
[2021-03-12] MEDS: IV NORMAL SALINE 1000ML BAG 1,000 ML IV SCH (17:26)
--- NOTE | 2021-03-12 18:50 | NUR ---
Patient's sister called for update. She stated that patient's son has aspergers and gets information mixed up. This RN took down sister's name and phone number, Galina, . Patient's sister said it was good to call her and she will let patient's son know.
[2021-03-12] MEDS: INSULIN GLARGINE SYRINGE. SQ SCH (21:00)
--- NOTE | 2021-03-12 21:00 | NUR ---
Patient's FSBS was 95, Patient has 2100 dose of Lantis insulin of 38 UNITS. Although patient does have tube feeding running at 10cc per hr concern with hypoglycemia. Will hold Lantis insulin and manage glucose per sliding [id number] as ordered.
[2021-03-12 23:23] LABS: HEMOGLOBIN A1C 6.6 % (4.8-5.6)
[2021-03-13] VITALS (23 sets, daily range): BP systolic 98–170; BP diastolic 54–85
[2021-03-13] MEDS: INSULIN LISPRO 300 UNITS/3 ML VIAL. SQ SCH ×5 (00:07→23:44)
[2021-03-13] MEDS: PROPOFOL 100 ML IV PRN ×4 (01:11→23:33)
[2021-03-13] MEDS: MEROPENEM 500 MG in IV NORMAL SALINE 50ML 50 ML IV SCH ×4 (05:35→23:32)
[2021-03-13] MEDS: HEPARIN for SUB-Q USE 5,000 UNIT/ML VIAL. SQ SCH ×3 (05:36→22:18)
[2021-03-13 06:18] LABS: CALCIUM 7.3 mg/dL (8.5-10.1); CREATININE 0.5 mg/dL (0.6-1.0); GFR 126.3
[2021-03-13 06:20] LABS: POTASSIUM 2.8 mmol/L (3.5-5.1)
[2021-03-13 06:39] LABS: BASO % 0 % (0-3); EOS # 0.3 x10^3/uL (0.0-0.7); EOS % 2 % (0-3); HEMATOCRIT 29.3 % (36.0-47.0); HEMOGLOBIN 9.7 g/dL (12.0-15.5); LYMPH # 1.5 x10^3/uL (1.0-4.8); LYMPH % 12 % (24-48); MEAN CORPUSCULAR HEMOGLOBIN 30 pg (25-35); MEAN CORPUSCULAR HGB CONC 33 g/dL (31-37); MEAN CORPUSCULAR VOLUME 91 fL (79-100); MONO # 0.9 x10^3/uL (0.0-1.1); MONO % 8 % (0-9); NEUT # 9.8 x10^3/uL (1.8-7.7); NEUT % 78 % (31-73); PLATELET COUNT 161 x10^3/uL (140-400); RED BLOOD COUNT 3.21 x10^6/uL (3.50-5.40); RED CELL DISTRIBUTION WIDTH 16.6 % (11.5-14.5); WHITE BLOOD COUNT 12.5 x10^3/uL (4.0-11.0)
[2021-03-13] MEDS ORDERED: POTASSIUM BICARB 20 MEQ EFFERVESCENT TABLET. PO ONE (07:00)
[2021-03-13] MEDS ORDERED: MAGNESIUM SULFATE 2GM 50 ML IV ONE (07:00)
--- NOTE | 2021-03-13 07:00 | NUR ---
Critical K+ called by lab at 618 resulted in 2.8; MAG 1.8, paged Dr. Lebron. Dr. Lebron returned page spoke Eliana Owen RN, notified of lab results and K+/MAG replacement received 03/12. Orders received for KCL 20MEQ IV x2 doses and MAG 2G IV,r.Repeat lab in AM. See lab results and orders. Addendum: 03/13/21 at 07 by AURELIA MELLO RN RN Amended: Links added.
--- NOTE | 2021-03-13 08:01 | PDOC ---
[employer] PROGRESS NOTE Date of Service DOS: DATE: 03/13/21 TIME: 07:51 Chief Complaint Chief Complaint A/P: Septic shock Renal abscess UTI (urinary tract infection) - Acute pyelonephritis Gram negative bacteremia - ID consulted Hypokalemia Hypomagnesemia Elevated troponin Acute encephalopathy - sepsis vs ETOH/benzo withdrawal. On CIWA and treating sepsis Lactic acidosis - sepsis vs seizure Acute kidney injury - vasomotor nephropathy from sepsis Hyponatremia - likely hypovolemic, will monitor ETOH dependence, recently discharged from rehab facility. Elevated troponin - unclear etiology, likely demand from sepsis. Cardiology consulted FEN - regular diet PPX - heparin FULL CODE Dispo - transfer to ICU History of Present Illness History of Present Illness Ms Barber is a 60-year-old female who presented via EMS to [facility] in [place] with report of altered mental status. Patient reportedly was found laying across the toilet resting her head in the shower by her son with altered mental state. Patient does have a history of alcohol abuse and recently was discharged from rehab after she was hospitalized at [facility]. EMS reports noting many empty beer cans found in the home. Patient does report drinking recently. Patient reports nausea and vomiting. Patient denies headache or neck pain. Patient reports she feels "ill ". Patient has received Andrea [employer] Andrea Covid vaccination. No recent sick contacts EKG Sinus tachycardia at 129bpm, occasional PVC, NO ST elevation, QRS 108ms, QT/QTc 326/479ms Initial labs NA 120 6K3.3, BUN 14, CR 1.3, glucose 199, magnesium 1.4, bilirubin 1.6, AST 36 ALT 26 alk phos 4 3, albumin 2.4, troponin 0.05 7.2179 0.291, ammonia 39, lactic acid 8.3, ethanol undetectable urine benzodiazepines positive COVID-19 rapid PCR negative, urinalysis positive for leuk esterase and nitrates. Blood cultures positive for 2 out of 4 bottles gram-negative adryan Chest x-ray stable. CT head/cervical spine without acute finding. CTA chest and abdomen/pelvis w/ IV contrast obtained with findings concerning for right sided renal abscess. Empiric antibiotic coverage added with vancomycin. Transferred to [facility] for further care. 03/11: Seen bedside, confused, tachycardic, asking if she can have some xanax. Not oriented, tachycardic, blood cultures notes. Transferred to ICU for worsening mental status, concern for seizure prior to arrival and impending potential septic shock. 03/12: This patient the ICU overnight that CODE JE was called. I discussion with ED attending (Dr. Hernández); patient went into A. fib and then subsequently PEA. She was intubated for airway protection, but there was some concern for a spiration. Chest x-ray showed diffuse central predominant infiltrates. We will continue IV antibiotics, per ID. Per Dr. More, renal abscess under 5 cm code be managed with antibiotics alone. Will monitor blood cultures and urine cultures from [facility], however if causative organism is uncertain, simply abscess could be beneficial to guide therapy. Critical care time 30 minutes spent reviewing charts, reviewing labs, imaging, discussion with RN. 03/13: Afebrile. On vent with FiO2 80%, PEEP 5. Potassium 2.8 with morning, replaced. WBC 12.5. Antibiotics been changed to meropenem; further antibiotic recommendations per ID. Continue IV antibiotics for now and look to repeat CT/abdomen pelvis in the next day or so. Critical care time 30 minutes spent reviewing charts, reviewing labs, imaging, discussion with RN. Vitals/I&O Vitals/I&O: Vital Signs Date Time Temp Pulse Resp B/P (MAP) Pulse Ox O2 Delivery O2 Flow Rate FiO2 03/13/21 07:04 99.1 65 16 121/66 100 Ventilator 99.1 03/12/21 13:51 3.0 I & O 03/12/21 03/12/21 03/13/21 15:00 23:00 07:00 Intake Total 150 ml 700 ml 1559 ml Output Total 250 ml 435 ml 560 ml Balance -100 ml 265 ml 999 ml Physical Exam Physical Exam: GENERAL: Intubated sedated HEENT: Normocephalic, atraumatic. Anicteric. Mild conjunctival irritation, ETT/OGT present NECK: Supple. No tenderness. LUNGS: Clear bilaterally. HEART: S1, S2, tachycardia. No murmurs. ABDOMEN: Soft, mild diffuse tenderness, slightly distended. Bowel sounds present. No guarding, no rigidity. EXTREMITIES: No edema, no cyanosis. DERMATOLOGIC: Warm, dry. No generalized rash. NEUROLOGIC: Intubated, sedated, arousable with verbal stimuli opens eyes transiently, was able to move all extremities yesterday Babin in place General: Alert Heart: Regular rate Lungs: Clear Abdomen: Soft Extremities: No edema, Normal pulses Skin: No breakdown, No significant lesion Labs Labs: Laboratory Tests Test 03/12/21 08:05 03/12/21 17:25 03/12/21 20:57 03/13/21 00:04 Potassium Level 3.3 mmol/L (3.5-5.1) Magnesium Level 1.5 mg/dL (1.8-2.4) Total Bilirubin 0.6 mg/dL (0.2-1.0) Direct Bilirubin 0.4 mg/dL (0.0-0.2) Aspartate Amino Transf (AST/SGOT) 47 U/L (15-37) Alanine Aminotransferase (ALT/SGPT) 30 U/L (14-59) Alkaline Phosphatase 159 U/L (46-116) Total Protein 5.3 g/dL (6.4-8.2) Albumin 1.8 g/dL (3.4-5.0) Glucose (Fingerstick) 149 mg/dL (70-99) 95 mg/dL (70-99) 103 mg/dL (70-99) Test 03/13/21 05:46 03/13/21 05:50 Glucose (Fingerstick) 126 mg/dL (70-99) White Blood Count 12.5 x10^3/uL (4.0-11.0) Red Blood Count 3.21 x10^6/uL (3.50-5.40) Hemoglobin 9.7 g/dL (12.0-15.5) Hematocrit 29.3 % (36.0-47.0) Mean Corpuscular Volume 91 fL (79-100) Mean Corpuscular Hemoglobin 30 pg (25-35) Mean Corpuscular Hemoglobin Concent 33 g/dL (31-37) Red Cell Distribution Width 16.6 % (11.5-14.5) Platelet Count 161 x10^3/uL (140-400) Neutrophils (%) (Auto) 78 % (31-73) Lymphocytes (%) (Auto) 12 % (24-48) Monocytes (%) (Auto) 8 % (0-9) Eosinophils (%) (Auto) 2 % (0-3) Basophils (%) (Auto) 0 % (0-3) Neutrophils # (Auto) 9.8 x10^3/uL (1.8-7.7) Lymphocytes # (Auto) 1.5 x10^3/uL (1.0-4.8) Monocytes # (Auto) 0.9 x10^3/uL (0.0-1.1) Eosinophils # (Auto) 0.3 x10^3/uL (0.0-0.7) Basophils # (Auto) 0.0 x10^3/uL (0.0-0.2) Sodium Level 131 mmol/L (136-145) Potassium Level 2.8 mmol/L (3.5-5.1) Chloride Level 98 mmol/L (98-107) Carbon Dioxide Level 29 mmol/L (21-32) Anion Gap 4 (6-14) Blood Urea Nitrogen 9 mg/dL (7-20) Creatinine 0.5 mg/dL (0.6-1.0) Estimated GFR (Cockcroft-Gault) 126.3 Glucose Level 117 mg/dL (70-99) Calcium Level 7.3 mg/dL (8.5-10.1) Magnesium Level 1.8 mg/dL (1.8-2.4) Comment Review of Relevant I have reviewed the following items celeste (where applicable) has been applied. Medications: Current Medications Medications (Trade) Dose Ordered Sig/Radha Route PRN Reason Start Time Stop Time Status Last Admin Dose Admin Cetirizine HCl (ZyrTEC) 10 mg DAILY PO 03/12/21 09:00 03/12/21 10:03 Potassium Bicarbonate (Potassium Effervescent Tablet) 40 meq 1X ONCE PEG 03/12/21 08:45 03/12/21 09:02 DC 03/12/21 10:03 Magnesium Sulfate 100 ml @ 25 mls/hr 1X ONCE IV 03/12/21 09:00 03/12/21 12:59 DC 03/12/21 10:00 Heparin Sodium (Porcine) (Heparin Sodium) 5,000 unit Q8HRS SQ 03/12/21 14:00 03/13/21 05:36 Justifications for Admission Other Justification IVETT TESFAYE MD Mar 13, 2021 08:01
--- NOTE | 2021-03-13 08:08 | RAD ---
EXAM: Chest, single view. HISTORY: Intubation. COMPARISON: 03/10/2021 FINDINGS: A frontal view of the chest obtained. There is no endotracheal tube within the mid trachea. There is a nasogastric tube within the stomach. There is a right PICC with the tip overlying the rig ht atrium. There is diffuse lower lobe predominant interstitial infiltrate with small left pleural ef fusion. There is cardiomegaly. The recently described subacute anterior left rib fractures are not we ll seen radiographically. IMPRESSION: 1. Diffuse lower lobe predominant interstitial infiltrate with small left pleural effusion. 2. Support lines and tubes, described above. Electronically signed by: Frida Zaman MD (03/13/2021 8:06 AM) [id number]
--- NOTE | 2021-03-13 08:19 | PDOC ---
Infectious Disease Note Subjective: Subjective Patient intubated/sedated Afebrile last 24 hours Discussed with nursing staff Vital Signs: Vital Signs Vital Signs Date Time Temp Pulse Resp B/P (MAP) Pulse Ox O2 Delivery O2 Flow Rate FiO2 03/13/21 07:04 99.1 65 16 121/66 100 Ventilator 99.1 03/12/21 13:51 3.0 Physical Exam: PHYSICAL EXAM GENERAL: Intubated sedated HEENT: Normocephalic, atraumatic. Anicteric. Mild conjunctival irritation, ETT/OGT present, no conjunctival petechia NECK: Supple. No tenderness. LUNGS: Clear bilaterally. HEART: S1, S2, No murmurs. ABDOMEN: Soft, mild diffuse tenderness, slightly distended. Bowel sounds present. No guarding, no rigidity. EXTREMITIES: Trace edema, no cyanosis. DERMATOLOGIC: Warm, dry. No generalized rash. NEUROLOGIC: Intubated, sedated, arousable with verbal stimuli opens eyes transiently, was able to move all extremities on admission Babin in place Medications: Inpatient Meds: Medications reviewed. Labs: Lab Laboratory Tests Test 03/12/21 17:25 03/12/21 20:57 03/13/21 00:04 03/13/21 05:46 Glucose (Fingerstick) 149 mg/dL (70-99) 95 mg/dL (70-99) 103 mg/dL (70-99) 126 mg/dL (70-99) Test 03/13/21 05:50 White Blood Count 12.5 x10^3/uL (4.0-11.0) Red Blood Count 3.21 x10^6/uL (3.50-5.40) Hemoglobin 9.7 g/dL (12.0-15.5) Hematocrit 29.3 % (36.0-47.0) Mean Corpuscular Volume 91 fL (79-100) Mean Corpuscular Hemoglobin 30 pg (25-35) Mean Corpuscular Hemoglobin Concent 33 g/dL (31-37) Red Cell Distribution Width 16.6 % (11.5-14.5) Platelet Count 161 x10^3/uL (140-400) Neutrophils (%) (Auto) 78 % (31-73) Lymphocytes (%) (Auto) 12 % (24-48) Monocytes (%) (Auto) 8 % (0-9) Eosinophils (%) (Auto) 2 % (0-3) Basophils (%) (Auto) 0 % (0-3) Neutrophils # (Auto) 9.8 x10^3/uL (1.8-7.7) Lymphocytes # (Auto) 1.5 x10^3/uL (1.0-4.8) Monocytes # (Auto) 0.9 x10^3/uL (0.0-1.1) Eosinophils # (Auto) 0.3 x10^3/uL (0.0-0.7) Basophils # (Auto) 0.0 x10^3/uL (0.0-0.2) Sodium Level 131 mmol/L (136-145) Potassium Level 2.8 mmol/L (3.5-5.1) Chloride Level 98 mmol/L (98-107) Carbon Dioxide Level 29 mmol/L (21-32) Anion Gap 4 (6-14) Blood Urea Nitrogen 9 mg/dL (7-20) Creatinine 0.5 mg/dL (0.6-1.0) Estimated GFR (Cockcroft-Gault) 126.3 Glucose Level 117 mg/dL (70-99) Calcium Level 7.3 mg/dL (8.5-10.1) Magnesium Level 1.8 mg/dL (1.8-2.4) Objective: Assessment: Gram-negative bacteremia 4 out of 4 bottles present on admission at [facility],E coli pansensitive Septic Shock from gram-negative sepsis Leukocytosis and lactic acidosis, source genitourinary. Urinary tract infection with renal mass, possible renal abscess, not a candidate for IR drainage. EtOH withdrawal Status post A. fib, idioventricular rhythm, asystole, status post cardiac arrest 03/04/2021 Acute hypoxic failure status post intubation 03/12/2021 Acute kidney injury. Febrile illness. Leukocytosis and bandemia. Hyponatremia. History of kidney stone. Encephalopathy, appears multifactorial including metabolic and anxiolytic medication ETOH dependence, recently discharged from rehab facility. Elevated troponin. Hypokalemia and hypomagnesemia. Cirrhosis History of hyperammonemia MARTINEZ suspect with the underlying benzodiazepine dependence Hypertension with hypertensive urgency diabetes mellitus 2 tobacco dependence History of vaginitis. ALLERGIES TO PENICILLIN WITH HIVES AND THROAT SWELLING. Tolerated meropenem test dose well on 03/11/2021 History of recurrent cardiac arrest recent [address] [facility] January 2021 Plan: Plan of Care Continue meropenem patient has tolerated it well Off Levaquin and Zyvox Clotrimazole vaginal cream Monitor labs and cultures. Monitor blood cultures and urine cultures from [facility]. IR has evaluated the patient. The patient is not a candidate for drainage at this time. The patient may need transfer to tertiary care center with urology consultation if continues to worsen or does not improve Patient will need repeat CT abdomen and pelvis imaging. Critically ill. Prognosis guarded Discussed with nursing staff. QUINTON DANIELS MD Mar 13, 2021 08:19
[2021-03-13 08:38] LABS: BASE EXCESS ABG 7 mmol/L (-3-3); HCO3 ABG 30 mmol/L (21-28); PCO2 ABG 34 mmHg (35-46); PO2 ABG 134 mmHg (65-108); SAT O2 ABG 99 % (92-99)
[2021-03-13 08:41] LABS: FIO2 ABG 80
--- NOTE | 2021-03-13 08:42 | PDOC ---
PULMONARY PROGRESS NOTES DATE: 03/13/21 TIME: 08:41 Subjective Patient sedated, currently on 80% FiO2 Vitals Vital Signs Date Time Temp Pulse Resp B/P (MAP) Pulse Ox O2 Delivery O2 Flow Rate FiO2 03/13/21 07:04 99.1 65 16 121/66 100 Ventilator 99.1 03/12/21 13:51 3.0 Lungs: Clear Cardiovascular: S1, S2 Abdomen: Soft Neuro Exam: Alert Extremities: No Edema Skin: Warm Labs Laboratory Tests Test 03/11/21 09:12 03/11/21 10:11 03/11/21 11:46 03/11/21 15:29 Glucose (Fingerstick) 145 mg/dL (70-99) 164 mg/dL (70-99) Prothrombin Time 13.6 SEC (11.7-14.0) Prothromb Time International Ratio 1.0 (0.8-1.1) Activated Partial Thromboplast Time 32 SEC (24-38) Magnesium Level 1.6 mg/dL (1.8-2.4) Troponin I Quantitative 0.431 ng/mL (0.000-0.055) Triglycerides Level 268 mg/dL (0-150) Cholesterol Level 163 mg/dL (0-200) LDL Cholesterol, Calculated 101 mg/dL (0-100) VLDL Cholesterol, Calculated 54 mg/dL (0-40) Non-HDL Cholesterol Calculated 155 mg/dL (0-129) HDL Cholesterol 8 mg/dL (40-60) Cholesterol/HDL Ratio 20.4 Lactic Acid Level 1.0 mmol/L (0.4-2.0) Ammonia 24 mcmol/L (11-34) Procalcitonin 53.07 ng/mL (0.00-0.10) Test 03/11/21 20:43 03/12/21 02:00 03/12/21 03:28 03/12/21 08:05 Glucose (Fingerstick) 93 mg/dL (70-99) White Blood Count 30.7 x10^3/uL (4.0-11.0) Red Blood Count 4.06 x10^6/uL (3.50-5.40) Hemoglobin 12.4 g/dL (12.0-15.5) Hematocrit 37.9 % (36.0-47.0) Mean Corpuscular Volume 93 fL (79-100) Mean Corpuscular Hemoglobin 31 pg (25-35) Mean Corpuscular Hemoglobin Concent 33 g/dL (31-37) Red Cell Distribution Width 16.3 % (11.5-14.5) Platelet Count 201 x10^3/uL (140-400) Neutrophils (%) (Auto) 87 % (31-73) Lymphocytes (%) (Auto) 5 % (24-48) Monocytes (%) (Auto) 7 % (0-9) Eosinophils (%) (Auto) 1 % (0-3) Basophils (%) (Auto) 1 % (0-3) Neutrophils # (Auto) 26.7 x10^3/uL (1.8-7.7) Lymphocytes # (Auto) 1.5 x10^3/uL (1.0-4.8) Monocytes # (Auto) 2.2 x10^3/uL (0.0-1.1) Eosinophils # (Auto) 0.1 x10^3/uL (0.0-0.7) Basophils # (Auto) 0.2 x10^3/uL (0.0-0.2) Sodium Level 131 mmol/L (136-145) Potassium Level 2.9 mmol/L (3.5-5.1) 3.3 mmol/L (3.5-5.1) Chloride Level 95 mmol/L (98-107) Carbon Dioxide Level 33 mmol/L (21-32) Anion Gap 3 (6-14) Blood Urea Nitrogen 8 mg/dL (7-20) Creatinine 0.7 mg/dL (0.6-1.0) Estimated GFR (Cockcroft-Gault) 85.6 Glucose Level 197 mg/dL (70-99) Calcium Level 7.9 mg/dL (8.5-10.1) O2 Saturation 95 % (92-99) Arterial Blood pH 7.44 (7.35-7.45) Arterial Blood pCO2 at Patient Temp 45 mmHg (35-46) Arterial Blood pO2 at Patient Temp 75 mmHg (65-108) Arterial Blood HCO3 29 mmol/L (21-28) Arterial Blood Base Excess 5 mmol/L (-3-3) FiO2 100 Magnesium Level 1.5 mg/dL (1.8-2.4) Total Bilirubin 0.6 mg/dL (0.2-1.0) Direct Bilirubin 0.4 mg/dL (0.0-0.2) Aspartate Amino Transf (AST/SGOT) 47 U/L (15-37) Alanine Aminotransferase (ALT/SGPT) 30 U/L (14-59) Alkaline Phosphatase 159 U/L (46-116) Total Protein 5.3 g/dL (6.4-8.2) Albumin 1.8 g/dL (3.4-5.0) Test 03/12/21 17:25 03/12/21 20:57 03/13/21 00:04 03/13/21 05:46 Glucose (Fingerstick) 149 mg/dL (70-99) 95 mg/dL (70-99) 103 mg/dL (70-99) 126 mg/dL (70-99) Test 03/13/21 05:50 03/13/21 08:00 White Blood Count 12.5 x10^3/uL (4.0-11.0) Red Blood Count 3.21 x10^6/uL (3.50-5.40) Hemoglobin 9.7 g/dL (12.0-15.5) Hematocrit 29.3 % (36.0-47.0) Mean Corpuscular Volume 91 fL (79-100) Mean Corpuscular Hemoglobin 30 pg (25-35) Mean Corpuscular Hemoglobin Concent 33 g/dL (31-37) Red Cell Distribution Width 16.6 % (11.5-14.5) Platelet Count 161 x10^3/uL (140-400) Neutrophils (%) (Auto) 78 % (31-73) Lymphocytes (%) (Auto) 12 % (24-48) Monocytes (%) (Auto) 8 % (0-9) Eosinophils (%) (Auto) 2 % (0-3) Basophils (%) (Auto) 0 % (0-3) Neutrophils # (Auto) 9.8 x10^3/uL (1.8-7.7) Lymphocytes # (Auto) 1.5 x10^3/uL (1.0-4.8) Monocytes # (Auto) 0.9 x10^3/uL (0.0-1.1) Eosinophils # (Auto) 0.3 x10^3/uL (0.0-0.7) Basophils # (Auto) 0.0 x10^3/uL (0.0-0.2) Sodium Level 131 mmol/L (136-145) Potassium Level 2.8 mmol/L (3.5-5.1) Chloride Level 98 mmol/L (98-107) Carbon Dioxide Level 29 mmol/L (21-32) Anion Gap 4 (6-14) Blood Urea Nitrogen 9 mg/dL (7-20) Creatinine 0.5 mg/dL (0.6-1.0) Estimated GFR (Cockcroft-Gault) 126.3 Glucose Level 117 mg/dL (70-99) Calcium Level 7.3 mg/dL (8.5-10.1) Magnesium Level 1.8 mg/dL (1.8-2.4) O2 Saturation 99 % (92-99) Arterial Blood pH 7.56 (7.35-7.45) Arterial Blood pCO2 at Patient Temp 34 mmHg (35-46) Arterial Blood pO2 at Patient Temp 134 mmHg (65-108) Arterial Blood HCO3 30 mmol/L (21-28) Arterial Blood Base Excess 7 mmol/L (-3-3) FiO2 80 Laboratory Tests Test 03/12/21 17:25 03/12/21 20:57 03/13/21 00:04 03/13/21 05:46 Glucose (Fingerstick) 149 mg/dL (70-99) 95 mg/dL (70-99) 103 mg/dL (70-99) 126 mg/dL (70-99) Test 03/13/21 05:50 03/13/21 08:00 White Blood Count 12.5 x10^3/uL (4.0-11.0) Red Blood Count 3.21 x10^6/uL (3.50-5.40) Hemoglobin 9.7 g/dL (12.0-15.5) Hematocrit 29.3 % (36.0-47.0) Mean Corpuscular Volume 91 fL (79-100) Mean Corpuscular Hemoglobin 30 pg (25-35) Mean Corpuscular Hemoglobin Concent 33 g/dL (31-37) Red Cell Distribution Width 16.6 % (11.5-14.5) Platelet Count 161 x10^3/uL (140-400) Neutrophils (%) (Auto) 78 % (31-73) Lymphocytes (%) (Auto) 12 % (24-48) Monocytes (%) (Auto) 8 % (0-9) Eosinophils (%) (Auto) 2 % (0-3) Basophils (%) (Auto) 0 % (0-3) Neutrophils # (Auto) 9.8 x10^3/uL (1.8-7.7) Lymphocytes # (Auto) 1.5 x10^3/uL (1.0-4.8) Monocytes # (Auto) 0.9 x10^3/uL (0.0-1.1) Eosinophils # (Auto) 0.3 x10^3/uL (0.0-0.7) Basophils # (Auto) 0.0 x10^3/uL (0.0-0.2) Sodium Level 131 mmol/L (136-145) Potassium Level 2.8 mmol/L (3.5-5.1) Chloride Level 98 mmol/L (98-107) Carbon Dioxide Level 29 mmol/L (21-32) Anion Gap 4 (6-14) Blood Urea Nitrogen 9 mg/dL (7-20) Creatinine 0.5 mg/dL (0.6-1.0) Estimated GFR (Cockcroft-Gault) 126.3 Glucose Level 117 mg/dL (70-99) Calcium Level 7.3 mg/dL (8.5-10.1) Magnesium Level 1.8 mg/dL (1.8-2.4) O2 Saturation 99 % (92-99) Arterial Blood pH 7.56 (7.35-7.45) Arterial Blood pCO2 at Patient Temp 34 mmHg (35-46) Arterial Blood pO2 at Patient Temp 134 mmHg (65-108) Arterial Blood HCO3 30 mmol/L (21-28) Arterial Blood Base Excess 7 mmol/L (-3-3) FiO2 80 Medications Active Scripts Medications Dose Route/Sig Max Daily Dose Days Date Category Gabapentin 600 Mg Tablet 300 Mg PO BID 03/10/21 Reported Atorvastatin Calcium 10 Mg Tablet 10 Mg PO HS 03/10/21 Reported Polar Freeze Gel (Menthol/Camphor) 120 Gm Gel..gram. 1 Vance TP TID 03/10/21 Reported Lantus (Insulin Glargine,Hum.rec.anlog) 100 Unit/1 Ml Vial 38 Unit SQ HS 03/10/21 Reported Omeprazole 20 Mg Capsule.dr 1 Cap PO DAILY 10/16/15 Reported Ibuprofen 400 Mg Tablet 400 Mg PO PRN PRN 10/16/15 Reported Mucinex (Guaifenesin) 600 Mg Tablet.er 1 Tab PO BID 10/16/15 Reported Flonase Allergy Relief (Fluticasone Propionate) 9.9 Ml [place].susp 2 Sprays NS DAILY 10/16/15 Reported Zyrtec (Cetirizine Hcl) 10 Mg Tablet 1 Tab PO DAILY 10/16/15 Reported Carvedilol (Carvedilol) 12.5 Mg Tablet 1 Tab PO BID 10/16/15 Reported Aspir 81 (Aspirin) 81 Mg Tablet.dr 1 Tab PO DAILY 10/16/15 Reported Alprazolam 0.25 Mg Tablet 1 Tab PO TID PRN PRN 10/16/15 Reported Impression . IMPRESSION: 1. Acute hypoxemic respiratory failure, multifactorial. 2. Septic shock. 3. Leukocytosis. 4. Urinary tract infection, possible renal abscess. 5. Acute kidney injury. 6. Hypokalemia. 7. Metabolic toxic encephalopathy. 8. Alcohol dependence. Plan . Updated 03/13 Blood cultures negative so far Continue empiric antibiotics Titrate FiO2 Follow ID input Discussed with RN and RT Adjust minute ventilation to normalize pH Replace potassium 03/12 PLAN: 1. We will continue current assist control ventilation. 2. Support with IV antibiotics. 3. IV fluids. 4. Empiric antibiotics, Levaquin and Zyvox for now. 5. Follow urine culture and sensitivity. I do appreciate the privilege in sharing in the patient's care. DANIELLE LOMAS MD Mar 13, 2021 08:42
[2021-03-13] MEDS: PANTOPRAZOLE IV PUSH 40 MG VIAL. IVP SCH (09:23)
[2021-03-13] MEDS: CETIRIZINE HCL 10 MG TABLET. PO SCH (09:23)
[2021-03-13] MEDS: NICOTINE 14MG PATCH. TD SCH (09:24)
[2021-03-13] MEDS: ASPIRIN ENTERIC COATED 81 MG TABLET.DR. PO SCH (09:24)
[2021-03-13] MEDS: LACTOBACILLUS RHAMNOSUS GG 1 CAPSULE. PO SCH ×2 (09:24→21:13)
[2021-03-13] MEDS: CARVEDILOL 12.5 MG TABLET. PO SCH ×2 (09:24→17:13)
[2021-03-13] MEDS: GABAPENTIN 300 MG CAPSULE. PO SCH ×2 (09:24→21:13)
[2021-03-13] MEDS: CLOTRIMAZOLE 1% VAGINAL CREAM 45GM TUBE. VG SCH ×2 (09:25→21:13)
[2021-03-13] MEDS: POTASSIUM CHLORIDE 20MEQ 100 ML IV SCH ×2 (09:26→10:57)
--- NOTE | 2021-03-13 13:01 | PDOC ---
BARTOLO GALLEGOS INFORMATION TECHNOLOGY DATA ANALYST 03/13/21 1301: CARDIO Progress Notes Date and Time Date of Service 03/13/2021 Time of Evaluation 1240 Subjective Subjective: Other (intubated ) Vitals Vitals Vital Signs Date Time Temp Pulse Resp B/P (MAP) Pulse Ox O2 Delivery O2 Flow Rate FiO2 03/13/21 12:15 67 16 105/60 100 Ventilator 03/13/21 12:05 3.0 03/13/21 10:58 99.5 99.5 Weight Weight [ ] Input and Output Intake and Output Intake and Output 03/13/21 06:59 Intake Total 2409 ml Output Total 1245 ml Balance 1164 ml IV Total 1473 ml Tube Feeding 536 ml Other 400 ml Output Urine Total 1095 ml Gastric Drainage Total 150 ml Laboratory Labs Laboratory Tests Test 03/12/21 17:25 03/12/21 20:57 03/13/21 00:04 03/13/21 05:46 Glucose (Fingerstick) 149 mg/dL (70-99) 95 mg/dL (70-99) 103 mg/dL (70-99) 126 mg/dL (70-99) Test 03/13/21 05:50 03/13/21 08:00 03/13/21 12:06 White Blood Count 12.5 x10^3/uL (4.0-11.0) Red Blood Count 3.21 x10^6/uL (3.50-5.40) Hemoglobin 9.7 g/dL (12.0-15.5) Hematocrit 29.3 % (36.0-47.0) Mean Corpuscular Volume 91 fL (79-100) Mean Corpuscular Hemoglobin 30 pg (25-35) Mean Corpuscular Hemoglobin Concent 33 g/dL (31-37) Red Cell Distribution Width 16.6 % (11.5-14.5) Platelet Count 161 x10^3/uL (140-400) Neutrophils (%) (Auto) 78 % (31-73) Lymphocytes (%) (Auto) 12 % (24-48) Monocytes (%) (Auto) 8 % (0-9) Eosinophils (%) (Auto) 2 % (0-3) Basophils (%) (Auto) 0 % (0-3) Neutrophils # (Auto) 9.8 x10^3/uL (1.8-7.7) Lymphocytes # (Auto) 1.5 x10^3/uL (1.0-4.8) Monocytes # (Auto) 0.9 x10^3/uL (0.0-1.1) Eosinophils # (Auto) 0.3 x10^3/uL (0.0-0.7) Basophils # (Auto) 0.0 x10^3/uL (0.0-0.2) Sodium Level 131 mmol/L (136-145) Potassium Level 2.8 mmol/L (3.5-5.1) Chloride Level 98 mmol/L (98-107) Carbon Dioxide Level 29 mmol/L (21-32) Anion Gap 4 (6-14) Blood Urea Nitrogen 9 mg/dL (7-20) Creatinine 0.5 mg/dL (0.6-1.0) Estimated GFR (Cockcroft-Gault) 126.3 Glucose Level 117 mg/dL (70-99) Calcium Level 7.3 mg/dL (8.5-10.1) Magnesium Level 1.8 mg/dL (1.8-2.4) O2 Saturation 99 % (92-99) Arterial Blood pH 7.56 (7.35-7.45) Arterial Blood pCO2 at Patient Temp 34 mmHg (35-46) Arterial Blood pO2 at Patient Temp 134 mmHg (65-108) Arterial Blood HCO3 30 mmol/L (21-28) Arterial Blood Base Excess 7 mmol/L (-3-3) FiO2 80 Glucose (Fingerstick) 116 mg/dL (70-99) Microbiology Micro Microbiology 03/11/21 Blood Culture - Preliminary, Resulted NO GROWTH AFTER 1 DAY Physical Exam HEENT: Neck Supple W Full Motion Chest: Symmetric LUNGS: Other (mechanical vent ) Heart: RRR (SR) Abdomen: Other (soft ) Extremities: No Edema Neurology: other (sedated ) Assessment Assessment 1. Leukocytosis, lactic acidosis, UTI, fevers, sepsis. CT with concerns for right renal abscess 2. Acute respiratory failure, PEA arrest. 4 mins to ROSC. s/p intubation. No VT/VF 3. Sinus tachycardia; physiologic secondary to above. resolved 4. Mild troponin elevation; highest 0.29. Most probable type II, demand ischemia in setting of above. Echo with preserved LV systolic function 5. CAD; mild, non-obstructive per cath 2012 6. Chronic systolic CHF, dilated cardiomyopathy; Echo 10/03 with LVEF 45%. Compensated 7. Hypertension; controlled 8. Hyperlipidemia; statin 9. DOMI; improved 10. Diabetes, II 11. Hypothyroidism 12. H/o ETOH abuse; recent discharged from rehab facility. neg upon admission 13. Hypokalemia, hypomagnesemia; replacement ongoing Recommendations ASA therapy Secondary prevention Ongoing treatment of sepsis as per ID Lung optimization as per pulmonary Supportive care Consider outpatient ischemic evaluation Follows with BARRE[facility] Mello Justicifation of Admission Dx: Justifications for Admission: Justification of Admission Dx: Yes DURAN BOLAÑOS MD 03/13/21 1400: CARDIO Progress Notes Assessment Assessment Patient seen and examined. Agree with [employer] SUPERVISOR's assessment and plan Continue vent management per pulm Telemetry did not show any significant arrhythmias Slight trop elevation prob demand ischemia 2D echo showed normal LVF Plan ischemic eval as outpatient BARTOLO GALLEGOS APRN Mar 13, 2021 13:01 DURNA BOLAÑOS MD Mar 13, 2021 14:00
[2021-03-13] MEDS: IV NORMAL SALINE 1000ML BAG 1,000 ML IV SCH (13:49)
[2021-03-13] MEDS: INSULIN GLARGINE SYRINGE. SQ SCH (21:00)
--- NOTE | 2021-03-13 21:00 | NUR ---
Patient's FSBS was 123. Patient's 2100 dose of Lantis insulin--38 UNITS. Although patient has tube feeding going at 30cc per hour, concern of possible hypoglycemia. Will hold and manage per sliding scale Q6HRS as ordered.
[2021-03-14] VITALS (25 sets, daily range): BP systolic 96–191; BP diastolic 48–108
[2021-03-14] MEDS: INSULIN LISPRO 300 UNITS/3 ML VIAL. SQ SCH ×3 (06:00→17:59)
[2021-03-14] MEDS: MEROPENEM 500 MG in IV NORMAL SALINE 50ML 50 ML IV SCH ×3 (06:10→17:51)
--- NOTE | 2021-03-14 06:18 | PDOC ---
PULMONARY PROGRESS NOTES DATE: 03/14/21 TIME: 06:17 Subjective on vent fio2 50 peep 5 sedated on versed propofol fentanyl Vitals Vital Signs Date Time Temp Pulse Resp B/P (MAP) Pulse Ox O2 Delivery O2 Flow Rate FiO2 03/14/21 03:00 66 16 123/64 99 Ventilator 03/14/21 00:01 99.7 99.7 03/13/21 12:35 3.0 Comments ros unable to obtain on vent sedated HEENT: Other (nc at perrl nose clear orally intubate neck no lad no thyromegaly) Lungs: Clear Cardiovascular: S1, S2 Abdomen: Soft Neuro Exam: Alert Extremities: No Edema Skin: Warm Labs Laboratory Tests Test 03/12/21 08:05 03/12/21 17:25 03/12/21 20:57 03/13/21 00:04 Potassium Level 3.3 mmol/L (3.5-5.1) Magnesium Level 1.5 mg/dL (1.8-2.4) Total Bilirubin 0.6 mg/dL (0.2-1.0) Direct Bilirubin 0.4 mg/dL (0.0-0.2) Aspartate Amino Transf (AST/SGOT) 47 U/L (15-37) Alanine Aminotransferase (ALT/SGPT) 30 U/L (14-59) Alkaline Phosphatase 159 U/L (46-116) Total Protein 5.3 g/dL (6.4-8.2) Albumin 1.8 g/dL (3.4-5.0) Glucose (Fingerstick) 149 mg/dL (70-99) 95 mg/dL (70-99) 103 mg/dL (70-99) Test 03/13/21 05:46 03/13/21 05:50 03/13/21 08:00 03/13/21 12:06 Glucose (Fingerstick) 126 mg/dL (70-99) 116 mg/dL (70-99) White Blood Count 12.5 x10^3/uL (4.0-11.0) Red Blood Count 3.21 x10^6/uL (3.50-5.40) Hemoglobin 9.7 g/dL (12.0-15.5) Hematocrit 29.3 % (36.0-47.0) Mean Corpuscular Volume 91 fL (79-100) Mean Corpuscular Hemoglobin 30 pg (25-35) Mean Corpuscular Hemoglobin Concent 33 g/dL (31-37) Red Cell Distribution Width 16.6 % (11.5-14.5) Platelet Count 161 x10^3/uL (140-400) Neutrophils (%) (Auto) 78 % (31-73) Lymphocytes (%) (Auto) 12 % (24-48) Monocytes (%) (Auto) 8 % (0-9) Eosinophils (%) (Auto) 2 % (0-3) Basophils (%) (Auto) 0 % (0-3) Neutrophils # (Auto) 9.8 x10^3/uL (1.8-7.7) Lymphocytes # (Auto) 1.5 x10^3/uL (1.0-4.8) Monocytes # (Auto) 0.9 x10^3/uL (0.0-1.1) Eosinophils # (Auto) 0.3 x10^3/uL (0.0-0.7) Basophils # (Auto) 0.0 x10^3/uL (0.0-0.2) Sodium Level 131 mmol/L (136-145) Potassium Level 2.8 mmol/L (3.5-5.1) Chloride Level 98 mmol/L (98-107) Carbon Dioxide Level 29 mmol/L (21-32) Anion Gap 4 (6-14) Blood Urea Nitrogen 9 mg/dL (7-20) Creatinine 0.5 mg/dL (0.6-1.0) Estimated GFR (Cockcroft-Gault) 126.3 Glucose Level 117 mg/dL (70-99) Calcium Level 7.3 mg/dL (8.5-10.1) Magnesium Level 1.8 mg/dL (1.8-2.4) O2 Saturation 99 % (92-99) Arterial Blood pH 7.56 (7.35-7.45) Arterial Blood pCO2 at Patient Temp 34 mmHg (35-46) Arterial Blood pO2 at Patient Temp 134 mmHg (65-108) Arterial Blood HCO3 30 mmol/L (21-28) Arterial Blood Base Excess 7 mmol/L (-3-3) FiO2 80 Test 03/13/21 17:12 03/13/21 21:19 03/13/21 23:40 Glucose (Fingerstick) 116 mg/dL (70-99) 123 mg/dL (70-99) 136 mg/dL (70-99) Laboratory Tests Test 03/13/21 08:00 03/13/21 12:06 03/13/21 17:12 03/13/21 21:19 O2 Saturation 99 % (92-99) Arterial Blood pH 7.56 (7.35-7.45) Arterial Blood pCO2 at Patient Temp 34 mmHg (35-46) Arterial Blood pO2 at Patient Temp 134 mmHg (65-108) Arterial Blood HCO3 30 mmol/L (21-28) Arterial Blood Base Excess 7 mmol/L (-3-3) FiO2 80 Glucose (Fingerstick) 116 mg/dL (70-99) 116 mg/dL (70-99) 123 mg/dL (70-99) Test 03/13/21 23:40 Glucose (Fingerstick) 136 mg/dL (70-99) Medications Active Scripts Medications Dose Route/Sig Max Daily Dose Days Date Category Gabapentin 600 Mg Tablet 300 Mg PO BID 03/10/21 Reported Atorvastatin Calcium 10 Mg Tablet 10 Mg PO HS 03/10/21 Reported Polar Freeze Gel (Menthol/Camphor) 120 Gm Gel..gram. 1 Vance TP TID 03/10/21 Reported Lantus (Insulin Glargine,Hum.rec.anlog) 100 Unit/1 Ml Vial 38 Unit SQ HS 03/10/21 Reported Omeprazole 20 Mg Capsule.dr 1 Cap PO DAILY 10/16/15 Reported Ibuprofen 400 Mg Tablet 400 Mg PO PRN PRN 10/16/15 Reported Mucinex (Guaifenesin) 600 Mg Tablet.er 1 Tab PO BID 10/16/15 Reported Flonase Allergy Relief (Fluticasone Propionate) 9.9 Ml [place].susp 2 Sprays NS DAILY 10/16/15 Reported Zyrtec (Cetirizine Hcl) 10 Mg Tablet 1 Tab PO DAILY 10/16/15 Reported Carvedilol (Carvedilol) 12.5 Mg Tablet 1 Tab PO BID 10/16/15 Reported Aspir 81 (Aspirin) 81 Mg Tablet.dr 1 Tab PO DAILY 10/16/15 Reported Alprazolam 0.25 Mg Tablet 1 Tab PO TID PRN PRN 10/16/15 Reported Comments cxr reviewed ett ok rll infilt worse lll infilt Impression . IMPRESSION: 1. Acute hypoxemic respiratory failure, multifactorial. 2. Septic shock. 3. Leukocytosis. 4. Urinary tract infection, possible renal abscess. 5. Acute kidney injury. 6. Hypokalemia. 7. Metabolic toxic encephalopathy. 8. Alcohol dependence. Plan . Updated 03/14 cont vent support setting reviewed will decrease sedation sbt when awake hep sq protonix for prophylaxis Blood cultures negative so far Continue empiric antibiotics Follow ID input Adjust minute ventilation to normalize pH monitor potassium Discussed with RN and RT Updated 03/13 Blood cultures negative so far Continue empiric antibiotics Titrate FiO2 Follow ID input Discussed with RN and RT Adjust minute ventilation to normalize pH Replace potassium 03/12 PLAN: 1. We will continue current assist control ventilation. 2. Support with IV antibiotics. 3. IV fluids. 4. Empiric antibiotics, Levaquin and Zyvox for now. 5. Follow urine culture and sensitivity. I do appreciate the privilege in sharing in the patient's care. MARCOS WOOD MD Mar 14, 2021 06:18
[2021-03-14] MEDS: HEPARIN for SUB-Q USE 5,000 UNIT/ML VIAL. SQ SCH ×3 (06:19→22:29)
[2021-03-14 06:40] LABS: BASO # 0.1 x10^3/uL (0.0-0.2); BASO % 1 % (0-3); EOS # 0.3 x10^3/uL (0.0-0.7); EOS % 2 % (0-3); HEMATOCRIT 29.8 % (36.0-47.0); HEMOGLOBIN 9.7 g/dL (12.0-15.5); LYMPH # 1.6 x10^3/uL (1.0-4.8); LYMPH % 13 % (24-48); MEAN CORPUSCULAR HEMOGLOBIN 30 pg (25-35); MEAN CORPUSCULAR HGB CONC 33 g/dL (31-37); MEAN CORPUSCULAR VOLUME 92 fL (79-100); MONO # 0.8 x10^3/uL (0.0-1.1); MONO % 7 % (0-9); NEUT # 9.6 x10^3/uL (1.8-7.7); NEUT % 78 % (31-73); PLATELET COUNT 171 x10^3/uL (140-400); RED BLOOD COUNT 3.23 x10^6/uL (3.50-5.40); RED CELL DISTRIBUTION WIDTH 16.3 % (11.5-14.5); WHITE BLOOD COUNT 12.4 x10^3/uL (4.0-11.0)
[2021-03-14 06:47] LABS: CALCIUM 7.5 mg/dL (8.5-10.1); CREATININE 0.5 mg/dL (0.6-1.0); GFR 126.3; POTASSIUM 3.7 mmol/L (3.5-5.1)
[2021-03-14] MEDS: PROPOFOL 100 ML IV PRN ×2 (07:05→21:27)
--- NOTE | 2021-03-14 08:03 | PDOC ---
Infectious Disease Note Subjective: Subjective Patient intubated/sedated Remains afebrile Plans are for vent trial later today Discussed with nursing staff Vital Signs: Vital Signs Vital Signs Date Time Temp Pulse Resp B/P (MAP) Pulse Ox O2 Delivery O2 Flow Rate FiO2 03/14/21 06:00 68 15 111/58 99 Ventilator 03/14/21 04:00 98.2 98.2 03/13/21 12:35 3.0 Physical Exam: PHYSICAL EXAM GENERAL: Intubated sedated HEENT: Normocephalic, atraumatic. Anicteric. Mild conjunctival irritation, ETT/OGT present, no conjunctival petechia NECK: Supple. No tenderness. LUNGS: Clear bilaterally. HEART: S1, S2, No murmurs. ABDOMEN: Soft, mild diffuse tenderness, slightly distended. Bowel sounds present. No guarding, no rigidity. EXTREMITIES: Trace edema, no cyanosis. DERMATOLOGIC: Warm, dry. No generalized rash. NEUROLOGIC: Intubated, sedated, arousable with verbal stimuli opens eyes transiently, was able to move all extremities on admission Babin in place Medications: Inpatient Meds: Medications reviewed. Labs: Lab Laboratory Tests Test 03/13/21 12:06 03/13/21 17:12 03/13/21 21:19 03/13/21 23:40 Glucose (Fingerstick) 116 mg/dL (70-99) 116 mg/dL (70-99) 123 mg/dL (70-99) 136 mg/dL (70-99) Test 03/14/21 06:15 White Blood Count 12.4 x10^3/uL (4.0-11.0) Red Blood Count 3.23 x10^6/uL (3.50-5.40) Hemoglobin 9.7 g/dL (12.0-15.5) Hematocrit 29.8 % (36.0-47.0) Mean Corpuscular Volume 92 fL (79-100) Mean Corpuscular Hemoglobin 30 pg (25-35) Mean Corpuscular Hemoglobin Concent 33 g/dL (31-37) Red Cell Distribution Width 16.3 % (11.5-14.5) Platelet Count 171 x10^3/uL (140-400) Neutrophils (%) (Auto) 78 % (31-73) Lymphocytes (%) (Auto) 13 % (24-48) Monocytes (%) (Auto) 7 % (0-9) Eosinophils (%) (Auto) 2 % (0-3) Basophils (%) (Auto) 1 % (0-3) Neutrophils # (Auto) 9.6 x10^3/uL (1.8-7.7) Lymphocytes # (Auto) 1.6 x10^3/uL (1.0-4.8) Monocytes # (Auto) 0.8 x10^3/uL (0.0-1.1) Eosinophils # (Auto) 0.3 x10^3/uL (0.0-0.7) Basophils # (Auto) 0.1 x10^3/uL (0.0-0.2) Sodium Level 133 mmol/L (136-145) Potassium Level 3.7 mmol/L (3.5-5.1) Chloride Level 99 mmol/L (98-107) Carbon Dioxide Level 29 mmol/L (21-32) Anion Gap 5 (6-14) Blood Urea Nitrogen 8 mg/dL (7-20) Creatinine 0.5 mg/dL (0.6-1.0) Estimated GFR (Cockcroft-Gault) 126.3 Glucose Level 132 mg/dL (70-99) Calcium Level 7.5 mg/dL (8.5-10.1) Magnesium Level 1.6 mg/dL (1.8-2.4) Objective: Assessment: Gram-negative bacteremia 4 out of 4 bottles present on admission at [facility],E coli pansensitive Blood culture positive here with gram-negative adryan Septic Shock from gram-negative sepsis Leukocytosis and lactic acidosis, source genitourinary. Urinary tract infection with renal mass, possible renal abscess, not a candidate for IR drainage. EtOH withdrawal Status post A. fib, idioventricular rhythm, asystole, status post cardiac arrest 03/04/2021 Acute hypoxic failure status post intubation 03/12/2021 Acute kidney injury. Febrile illness. Leukocytosis and bandemia. Hyponatremia. History of kidney stone. Encephalopathy, appears multifactorial including metabolic and anxiolytic medication ETOH dependence, recently discharged from rehab facility. Elevated troponin. Hypokalemia and hypomagnesemia. Cirrhosis History of hyperammonemia MARTINEZ suspect with the underlying benzodiazepine dependence Hypertension with hypertensive urgency diabetes mellitus 2 tobacco dependence History of vaginitis. ALLERGIES TO PENICILLIN WITH HIVES AND THROAT SWELLING. Tolerated meropenem test dose well on 03/11/2021 History of recurrent cardiac arrest recent 1 during last hospitalization at [facility] January 2021 Plan: Plan of Care Leukocytosis could be reactive Follow-up GNR in blood culture here, will be likely E. coli from renal abscess Continue meropenem patient has tolerated it well Off Levaquin and Zyvox Clotrimazole vaginal cream Monitor labs and cultures. Monitor blood cultures and urine cultures from [facility]. IR has evaluated the patient. The patient is not a candidate for drainage at this time. The patient may need transfer to tertiary care center with urology consultation if continues to worsen or does not improve Patient will need repeat CT abdomen and pelvis imaging. Critically ill. Prognosis guarded Discussed with nursing staff. QUINTON DANIELS MD Mar 14, 2021 08:03
[2021-03-14 08:13] LABS: BASE EXCESS ABG 1 mmol/L (-3-3); CORRECTED PCO2 ABG 36 mmHg; CORRECTED PH ABG 7.46; CORRECTED PO2 ABG 77 mmHg; HCO3 ABG 25 mmol/L (21-28); PCO2 ABG 35 mmHg (35-46); PO2 ABG 74 mmHg (65-108); SAT O2 ABG 94 % (92-99)
--- NOTE | 2021-03-14 08:38 | RAD ---
EXAM: Chest, single view. HISTORY: Intubation. COMPARISON: 03/13/2021 FINDINGS: A frontal view of the chest is obtained. There is an endotracheal tube within the distal tr achea. There is nasogastric tube extending inferior to the [id number]. There is a right PICC with the tip overlying the right atrium. There has been slight interval increase in right lower lobe infil trate in a small right pleural effusion. There is stable partially consolidated left lower lobe infil trate and a small left pleural effusion. There is a stable cardiac silhouette. There is no pneumothor ax. IMPRESSION: 1. Increased right lower lobe infiltrate and small right pleural effusion. 2. Stable partial left lower lobe consolidation and small pleural effusion. 3. Stable support lines and tubes. Electronically signed by: Frida Zaman MD (03/14/2021 8:36 AM) [id number]
[2021-03-14] MEDS: LACTOBACILLUS RHAMNOSUS GG 1 CAPSULE. PO SCH ×2 (09:24→21:06)
[2021-03-14] MEDS: PANTOPRAZOLE IV PUSH 40 MG VIAL. IVP SCH (09:24)
[2021-03-14] MEDS: CARVEDILOL 12.5 MG TABLET. PO SCH ×2 (09:24→17:04)
[2021-03-14] MEDS: GABAPENTIN 300 MG CAPSULE. PO SCH ×2 (09:24→21:06)
[2021-03-14] MEDS: CETIRIZINE HCL 10 MG TABLET. PO SCH (09:24)
[2021-03-14] MEDS: NICOTINE 14MG PATCH. TD SCH (09:25)
[2021-03-14] MEDS: ASPIRIN CHEWABLE 81 MG TABLET. PO SCH (09:36)
[2021-03-14] MEDS: IV NORMAL SALINE 1000ML BAG 1,000 ML IV SCH (09:37)
--- NOTE | 2021-03-14 09:39 | PDOC ---
[employer] PROGRESS NOTE Date of Service DOS: DATE: 03/14/21 TIME: 09:35 Chief Complaint Chief Complaint A/P: Septic shock Renal abscess UTI (urinary tract infection) - Acute pyelonephritis Gram negative bacteremia - ID consulted Hypokalemia Hypomagnesemia Elevated troponin Acute encephalopathy - sepsis vs ETOH/benzo withdrawal. On CIWA and treating sepsis Lactic acidosis - sepsis vs seizure Acute kidney injury - vasomotor nephropathy from sepsis Hyponatremia - likely hypovolemic, will monitor ETOH dependence, recently discharged from rehab facility. Elevated troponin - unclear etiology, likely demand from sepsis. Cardiology consulted FEN - regular diet PPX - heparin FULL CODE Dispo - transfer to ICU History of Present Illness History of Present Illness Ms Barber is a 60-year-old female who presented via EMS to [facility] in [place] with report of altered mental status. Patient reportedly was found laying across the toilet resting her head in the shower by her son with altered mental state. Patient does have a history of alcohol abuse and recently was discharged from rehab after she was hospitalized at [facility]. EMS reports noting many empty beer cans found in the home. Patient does report drinking recently. Patient reports nausea and vomiting. Patient denies headache or neck pain. Patient reports she feels "ill ". Patient has received [employer] Covid vaccination. No recent sick contacts EKG Sinus tachycardia at 129bpm, occasional PVC, NO ST elevation, QRS 108ms, QT/QTc 326/479ms Initial labs NA 120 6K3.3, BUN 14, CR 1.3, glucose 199, magnesium 1.4, bilirubin 1.6, AST 36 ALT 26 alk phos 4 3, albumin 2.4, troponin 0.05 7.2179 0.291, ammonia 39, lactic acid 8.3, ethanol undetectable urine benzodiazepines positive COVID-19 rapid PCR negative, urinalysis positive for leuk esterase and nitrates. Blood cultures positive for 2 out of 4 bottles gram-negative adryan Chest x-ray stable. CT head/cervical spine without acute finding. CTA chest and abdomen/pelvis w/ IV contrast obtained with findings concerning for right sided renal abscess. Empiric antibiotic coverage added with vancomycin. Transferred to [facility] for further care. 03/11: Seen bedside, confused, tachycardic, asking if she can have some xanax. Not oriented, tachycardic, blood cultures notes. Transferred to ICU for worsening mental status, concern for seizure prior to arrival and impending potential septic shock. 03/12: This patient the ICU overnight that CODE BLUE was called. I discussion with ED attending (Dr. Hernández); patient went into A. fib and then subsequently PEA. She was intubated for airway protection, but there was some concern for a spiration. Chest x-ray showed diffuse central predominant infiltrates. We will continue IV antibiotics, per ID. Per Dr. More, renal abscess under 5 cm code be managed with antibiotics alone. Will monitor blood cultures and urine cultures from [facility], however if causative organism is uncertain, simply abscess could be beneficial to guide therapy. Critical care time 30 minutes spent reviewing charts, reviewing labs, imaging, discussion with RN. 03/13: Afebrile. On vent with FiO2 80%, PEEP 5. Potassium 2.8 with morning, replaced. WBC 12.5. Antibiotics been changed to meropenem; further antibiotic recommendations per ID. Continue IV antibiotics for now and look to repeat CT/abdomen pelvis in the next day or so. Critical care time 30 minutes spent reviewing charts, reviewing labs, imaging, discussion with RN. 03/14: Afebrile. On vent with FiO2 50%, PEEP 5. Leukocytosis improving, WBC 12.4 today. ABG showed pH 7.47. We will continue to follow blood cultures; gram-negative rods in 1 of 3 bottles, likely E. coli. Continue meropenem, per ID. Patient not candidate for drainage, per IR. Will need repeat CT abdom en/pelvis if patient can tolerate. Critical care time 30 minutes spent reviewing charts, reviewing labs, imaging, discussion with RN. Vitals/I&O Vitals/I&O: Vital Signs Date Time Temp Pulse Resp B/P (MAP) Pulse Ox O2 Delivery O2 Flow Rate FiO2 03/14/21 09:24 68 113/59 03/14/21 08:01 99 Ventilator 03/14/21 06:00 15 03/14/21 04:00 98.2 98.2 03/13/21 12:35 3.0 I & O 03/13/21 03/13/21 03/14/21 15:00 23:00 07:00 Intake Total 250 ml 1609 ml 2190 ml Output Total 220 ml 390 ml 455 ml Balance 30 ml 1219 ml 1735 ml Physical Exam Physical Exam: GENERAL: Intubated sedated HEENT: Normocephalic, atraumatic. Anicteric. Mild conjunctival irritation, ETT/OGT present, no conjunctival petechia NECK: Supple. No tenderness. LUNGS: Clear bilaterally. HEART: S1, S2, No murmurs. ABDOMEN: Soft, mild diffuse tenderness, slightly distended. Bowel sounds present. No guarding, no rigidity. EXTREMITIES: Trace edema, no cyanosis. DERMATOLOGIC: Warm, dry. No generalized rash. NEUROLOGIC: Intubated, sedated, arousable with verbal stimuli opens eyes transiently, was able to move all extremities on admission Babin in place General: Alert Heart: Regular rate Lungs: Clear Abdomen: Soft Extremities: No edema, Normal pulses Skin: No breakdown, No significant lesion Labs Labs: Laboratory Tests Test 03/13/21 12:06 03/13/21 17:12 03/13/21 21:19 03/13/21 23:40 Glucose (Fingerstick) 116 mg/dL (70-99) 116 mg/dL (70-99) 123 mg/dL (70-99) 136 mg/dL (70-99) Test 03/14/21 06:15 03/14/21 08:00 White Blood Count 12.4 x10^3/uL (4.0-11.0) Red Blood Count 3.23 x10^6/uL (3.50-5.40) Hemoglobin 9.7 g/dL (12.0-15.5) Hematocrit 29.8 % (36.0-47.0) Mean Corpuscular Volume 92 fL (79-100) Mean Corpuscular Hemoglobin 30 pg (25-35) Mean Corpuscular Hemoglobin Concent 33 g/dL (31-37) Red Cell Distribution Width 16.3 % (11.5-14.5) Platelet Count 171 x10^3/uL (140-400) Neutrophils (%) (Auto) 78 % (31-73) Lymphocytes (%) (Auto) 13 % (24-48) Monocytes (%) (Auto) 7 % (0-9) Eosinophils (%) (Auto) 2 % (0-3) Basophils (%) (Auto) 1 % (0-3) Neutrophils # (Auto) 9.6 x10^3/uL (1.8-7.7) Lymphocytes # (Auto) 1.6 x10^3/uL (1.0-4.8) Monocytes # (Auto) 0.8 x10^3/uL (0.0-1.1) Eosinophils # (Auto) 0.3 x10^3/uL (0.0-0.7) Basophils # (Auto) 0.1 x10^3/uL (0.0-0.2) Sodium Level 133 mmol/L (136-145) Potassium Level 3.7 mmol/L (3.5-5.1) Chloride Level 99 mmol/L (98-107) Carbon Dioxide Level 29 mmol/L (21-32) Anion Gap 5 (6-14) Blood Urea Nitrogen 8 mg/dL (7-20) Creatinine 0.5 mg/dL (0.6-1.0) Estimated GFR (Cockcroft-Gault) 126.3 Glucose Level 132 mg/dL (70-99) Calcium Level 7.5 mg/dL (8.5-10.1) Magnesium Level 1.6 mg/dL (1.8-2.4) O2 Saturation 94 % (92-99) Arterial Blood pH 7.47 (7.35-7.45) Arterial Blood pH (Temp corrected) 7.46 Arterial Blood pCO2 at Patient Temp 35 mmHg (35-46) Arterial Blood pCO2 (Temp correct) 36 mmHg Arterial Blood pO2 at Patient Temp 74 mmHg (65-108) Arterial Blood pO2 (Temp corrected) 77 mmHg Arterial Blood HCO3 25 mmol/L (21-28) Arterial Blood Base Excess 1 mmol/L (-3-3) FiO2 50/vent Comment Review of Relevant I have reviewed the following items celeste (where applicable) has been applied. Justifications for Admission Other Justification IVETT TESFAYE MD Mar 14, 2021 09:39
[2021-03-14] MEDS: CLOTRIMAZOLE 1% VAGINAL CREAM 45GM TUBE. VG SCH ×2 (10:28→21:07)
--- NOTE | 2021-03-14 12:16 | NUR ---
SBT attempted, however within 8 minutes respirations increased to 36, patient SpO2 dropped to 87% and patient is quite agitated despite verbal coaching. Trial stopped and patient resedated.
--- NOTE | 2021-03-14 12:48 | PDOC ---
PROGRESS NOTES Date of Service DATE: 03/14/21 TIME: 12:45 Subjective Subjective Patient seen and examined Objective Objective Vital Signs Date Time Temp Pulse Resp B/P (MAP) Pulse Ox O2 Delivery O2 Flow Rate FiO2 03/14/21 12:10 91 28 139/75 89 03/14/21 12:09 Ventilator 03/14/21 12:00 99.9 99.9 03/13/21 12:35 3.0 Intake and Output 03/14/21 07:00 Intake Total 4049 ml Output Total 1165 ml Balance 2884 ml IV Total 1802 ml Tube Feeding 1446 ml Other 801 ml Output Urine Total 1055 ml Gastric Drainage Total 110 ml Physical Exam Abdomen: Normal bowel sounds Heart: Regular rate General: Other (Intubated) Lungs: Other (Decreased breath sounds) Assessment Assessment Leukocytosis, lactic acidosis, UTI, fevers, sepsis. CT with concerns for right renal abscess. Followed by ID. Acute respiratory failure, PEA arrest. 4 mins to ROSC. s/p intubation. No VT/VF Sinus tachycardia; physiologic secondary to above. resolved Mild troponin elevation; highest 0.29. Most probable type II, demand ischemia in setting of above. Echo with preserved LV systolic function CAD; mild, non-obstructive per cath 2012 Chronic systolic CHF, dilated cardiomyopathy; Echo 10/03 with LVEF 45%. Compen sated Hypertension; controlled Hyperlipidemia; statin DOMI; improving Diabetes, II Hypothyroidism H/o ETOH abuse; recent discharged from rehab facility. neg upon admission Hypokalemia, hypomagnesemia; replacement ongoing Comment Review of Relevant I have reviewed the following items celeste (where applicable) has been applied. Labs Laboratory Tests Test 03/12/21 17:25 03/12/21 20:57 03/13/21 00:04 03/13/21 05:46 Glucose (Fingerstick) 149 mg/dL (70-99) 95 mg/dL (70-99) 103 mg/dL (70-99) 126 mg/dL (70-99) Test 03/13/21 05:50 03/13/21 08:00 03/13/21 12:06 03/13/21 17:12 White Blood Count 12.5 x10^3/uL (4.0-11.0) Red Blood Count 3.21 x10^6/uL (3.50-5.40) Hemoglobin 9.7 g/dL (12.0-15.5) Hematocrit 29.3 % (36.0-47.0) Mean Corpuscular Volume 91 fL (79-100) Mean Corpuscular Hemoglobin 30 pg (25-35) Mean Corpuscular Hemoglobin Concent 33 g/dL (31-37) Red Cell Distribution Width 16.6 % (11.5-14.5) Platelet Count 161 x10^3/uL (140-400) Neutrophils (%) (Auto) 78 % (31-73) Lymphocytes (%) (Auto) 12 % (24-48) Monocytes (%) (Auto) 8 % (0-9) Eosinophils (%) (Auto) 2 % (0-3) Basophils (%) (Auto) 0 % (0-3) Neutrophils # (Auto) 9.8 x10^3/uL (1.8-7.7) Lymphocytes # (Auto) 1.5 x10^3/uL (1.0-4.8) Monocytes # (Auto) 0.9 x10^3/uL (0.0-1.1) Eosinophils # (Auto) 0.3 x10^3/uL (0.0-0.7) Basophils # (Auto) 0.0 x10^3/uL (0.0-0.2) Sodium Level 131 mmol/L (136-145) Potassium Level 2.8 mmol/L (3.5-5.1) Chloride Level 98 mmol/L (98-107) Carbon Dioxide Level 29 mmol/L (21-32) Anion Gap 4 (6-14) Blood Urea Nitrogen 9 mg/dL (7-20) Creatinine 0.5 mg/dL (0.6-1.0) Estimated GFR (Cockcroft-Gault) 126.3 Glucose Level 117 mg/dL (70-99) Calcium Level 7.3 mg/dL (8.5-10.1) Magnesium Level 1.8 mg/dL (1.8-2.4) O2 Saturation 99 % (92-99) Arterial Blood pH 7.56 (7.35-7.45) Arterial Blood pCO2 at Patient Temp 34 mmHg (35-46) Arterial Blood pO2 at Patient Temp 134 mmHg (65-108) Arterial Blood HCO3 30 mmol/L (21-28) Arterial Blood Base Excess 7 mmol/L (-3-3) FiO2 80 Glucose (Fingerstick) 116 mg/dL (70-99) 116 mg/dL (70-99) Test 03/13/21 21:19 03/13/21 23:40 03/14/21 06:15 03/14/21 08:00 Glucose (Fingerstick) 123 mg/dL (70-99) 136 mg/dL (70-99) White Blood Count 12.4 x10^3/uL (4.0-11.0) Red Blood Count 3.23 x10^6/uL (3.50-5.40) Hemoglobin 9.7 g/dL (12.0-15.5) Hematocrit 29.8 % (36.0-47.0) Mean Corpuscular Volume 92 fL (79-100) Mean Corpuscular Hemoglobin 30 pg (25-35) Mean Corpuscular Hemoglobin Concent 33 g/dL (31-37) Red Cell Distribution Width 16.3 % (11.5-14.5) Platelet Count 171 x10^3/uL (140-400) Neutrophils (%) (Auto) 78 % (31-73) Lymphocytes (%) (Auto) 13 % (24-48) Monocytes (%) (Auto) 7 % (0-9) Eosinophils (%) (Auto) 2 % (0-3) Basophils (%) (Auto) 1 % (0-3) Neutrophils # (Auto) 9.6 x10^3/uL (1.8-7.7) Lymphocytes # (Auto) 1.6 x10^3/uL (1.0-4.8) Monocytes # (Auto) 0.8 x10^3/uL (0.0-1.1) Eosinophils # (Auto) 0.3 x10^3/uL (0.0-0.7) Basophils # (Auto) 0.1 x10^3/uL (0.0-0.2) Sodium Level 133 mmol/L (136-145) Potassium Level 3.7 mmol/L (3.5-5.1) Chloride Level 99 mmol/L (98-107) Carbon Dioxide Level 29 mmol/L (21-32) Anion Gap 5 (6-14) Blood Urea Nitrogen 8 mg/dL (7-20) Creatinine 0.5 mg/dL (0.6-1.0) Estimated GFR (Cockcroft-Gault) 126.3 Glucose Level 132 mg/dL (70-99) Calcium Level 7.5 mg/dL (8.5-10.1) Magnesium Level 1.6 mg/dL (1.8-2.4) O2 Saturation 94 % (92-99) Arterial Blood pH 7.47 (7.35-7.45) Arterial Blood pH (Temp corrected) 7.46 Arterial Blood pCO2 at Patient Temp 35 mmHg (35-46) Arterial Blood pCO2 (Temp correct) 36 mmHg Arterial Blood pO2 at Patient Temp 74 mmHg (65-108) Arterial Blood pO2 (Temp corrected) 77 mmHg Arterial Blood HCO3 25 mmol/L (21-28) Arterial Blood Base Excess 1 mmol/L (-3-3) FiO2 50/vent Test 03/14/21 12:28 Glucose (Fingerstick) 115 mg/dL (70-99) Laboratory Tests Test 03/13/21 17:12 03/13/21 21:19 03/13/21 23:40 03/14/21 06:15 Glucose (Fingerstick) 116 mg/dL (70-99) 123 mg/dL (70-99) 136 mg/dL (70-99) White Blood Count 12.4 x10^3/uL (4.0-11.0) Red Blood Count 3.23 x10^6/uL (3.50-5.40) Hemoglobin 9.7 g/dL (12.0-15.5) Hematocrit 29.8 % (36.0-47.0) Mean Corpuscular Volume 92 fL (79-100) Mean Corpuscular Hemoglobin 30 pg (25-35) Mean Corpuscular Hemoglobin Concent 33 g/dL (31-37) Red Cell Distribution Width 16.3 % (11.5-14.5) Platelet Count 171 x10^3/uL (140-400) Neutrophils (%) (Auto) 78 % (31-73) Lymphocytes (%) (Auto) 13 % (24-48) Monocytes (%) (Auto) 7 % (0-9) Eosinophils (%) (Auto) 2 % (0-3) Basophils (%) (Auto) 1 % (0-3) Neutrophils # (Auto) 9.6 x10^3/uL (1.8-7.7) Lymphocytes # (Auto) 1.6 x10^3/uL (1.0-4.8) Monocytes # (Auto) 0.8 x10^3/uL (0.0-1.1) Eosinophils # (Auto) 0.3 x10^3/uL (0.0-0.7) Basophils # (Auto) 0.1 x10^3/uL (0.0-0.2) Sodium Level 133 mmol/L (136-145) Potassium Level 3.7 mmol/L (3.5-5.1) Chloride Level 99 mmol/L (98-107) Carbon Dioxide Level 29 mmol/L (21-32) Anion Gap 5 (6-14) Blood Urea Nitrogen 8 mg/dL (7-20) Creatinine 0.5 mg/dL (0.6-1.0) Estimated GFR (Cockcroft-Gault) 126.3 Glucose Level 132 mg/dL (70-99) Calcium Level 7.5 mg/dL (8.5-10.1) Magnesium Level 1.6 mg/dL (1.8-2.4) Test 03/14/21 08:00 03/14/21 12:28 O2 Saturation 94 % (92-99) Arterial Blood pH 7.47 (7.35-7.45) Arterial Blood pH (Temp corrected) 7.46 Arterial Blood pCO2 at Patient Temp 35 mmHg (35-46) Arterial Blood pCO2 (Temp correct) 36 mmHg Arterial Blood pO2 at Patient Temp 74 mmHg (65-108) Arterial Blood pO2 (Temp corrected) 77 mmHg Arterial Blood HCO3 25 mmol/L (21-28) Arterial Blood Base Excess 1 mmol/L (-3-3) FiO2 50/vent Glucose (Fingerstick) 115 mg/dL (70-99) Microbiology 03/11/21 Blood Culture - Final, Complete Medications Current Medications Levofloxacin/ Dextrose 50 ml @ 50 mls/hr Q24H IV Last administered on 03/10/21at 19:48; Start 03/10/21 at 19:00; Stop 03/11/21 at 08:25; Status DC Acetaminophen (Tylenol) 650 mg PRN Q6HRS PRN PO MILD PAIN / TEMP > 100.3'F Last administered on 03/11/21at 09:08; Start 03/10/21 at 18:45 Nicotine (Nicoderm Cq 14mg) 1 patch DAILY TD Last administered on 03/14/21at 09:25; Start 03/10/21 at 19:00 Gabapentin (Neurontin) 300 mg BID PO Last administered on 03/14/21at 09:24; Start 03/10/21 at 23:00 Lorazepam (Ativan) 4 mg PRN Q1HR PRN PO For CIWA 8-14 Last administered on 03/10/21at 23:03; Start 03/10/21 at 23:00; Stop 03/11/21 at 09:25; Status DC Lorazepam (Ativan) 8 mg PRN Q1HR PRN PO For CIWA 15 or greater; Start 03/10/21 at 23:00; Stop 03/11/21 at 09:25; Status DC Sodium Chloride 1,000 ml @ 125 mls/hr 1X ONCE IV Last administered on 03/11/21at 08:55; Start 03/11/21 at 08:30; Stop 03/11/21 at 16:29; Status DC Levofloxacin/ Dextrose 150 ml @ 100 mls/hr Q24H IV Last administered on 03/12/21at 13:28; Start 03/11/21 at 12:00; Stop 03/12/21 at 15:18; Status DC Multivitamins (Thera M Plus) 1 tab DAILY PO ; Start 03/16/21 at 09:00 Folic Acid (Folic Acid) 1 mg DAILY PO ; Start 03/16/21 at 09:00 Thiamine Mononitrate (Vitamin B-1) 100 mg DAILY PO ; Start 03/16/21 at 09:00 Lorazepam (Ativan Inj) 2 mg PRN Q1HR PRN IV For CIWA 8-14 Last administered on 03/11/21at 22:35; Start 03/11/21 at 08:30 Lorazepam (Ativan Inj) 4 mg PRN Q1HR PRN IV For CIWA 15 or greater Last administered on 03/12/21at 00:50; Start 03/11/21 at 08:30 Haloperidol Lactate (Haldol Inj) 5 mg PRN Q4HRS PRN IVP Hallucinatns,Confusn,Delirium; Start 03/11/21 at 08:30 Diphenhydramine HCl (Benadryl) 25 mg PRN Q15MIN PRN IVP EPS symptoms 2'Haldol admin; Start 03/11/21 at 08:30 Clonidine HCl (Catapres) 0.1 mg PRN Q1HR PRN PO SBP > 180 or DBP > 100, MRX3; Start 03/11/21 at 08:30 Lorazepam (Ativan) 1 mg PRN Q1HR PRN PO For CIWA 8-14; Start 03/11/21 at 09:30 Lorazepam (Ativan) 2 mg PRN Q1HR PRN PO For CIWA 15 or greater; Start 03/11/21 at 09:30 Linezolid/Dextrose 300 ml @ 300 mls/hr Q12HR IV Last administered on 03/12/21at 10:08; Start 03/11/21 at 12:00; Stop 03/12/21 at 15:18; Status DC Lactobacillus Rhamnosus (Culturelle) 1 cap BID PO Last administered on 03/14/21at 09:24; Start 03/11/21 at 21:00 Aspirin (Ecotrin) 81 mg DAILYWBKFT PO Last administered on 03/13/21at 09:24; Start 03/11/21 at 12:00; Stop 03/14/21 at 09:20; Status DC Aspirin (Ecotrin) 81 mg DAILY PO ; Start 03/12/21 at 09:00; Status UNV Atorvastatin Calcium (Lipitor) 10 mg HS PO ; Start 03/11/21 at 21:00; Stop 03/11/21 at 15:51; Status DC Carvedilol (Coreg) 12.5 mg BIDWMEALS PO Last administered on 03/14/21at 09:24; Start 03/11/21 at 17:00 Cetirizine HCl (ZyrTEC) 10 mg DAILY PO Last administered on 03/14/21at 09:24; Start 03/12/21 at 09:00 Insulin Glargine (Lantus Syringe) 38 unit HS SQ ; Start 03/11/21 at 21:00 Pantoprazole Sodium (Protonix) 40 mg DAILYAC PO ; Start 03/12/21 at 07:30; Stop 03/12/21 at 09:56; Status DC Meropenem 100 mg/ Sodium Chloride 50 ml @ 200 mls/hr 1X ONCE IV ; Start 03/11/21 at 14:30; Stop 03/11/21 at 14:44; Status Cancel Meropenem 400 mg/ Sodium Chloride 50 ml @ 100 mls/hr 1X ONCE IV ; Start 03/11/21 at 15:30; Stop 03/11/21 at 15:59; Status Cancel Meropenem 500 mg/ Sodium Chloride 50 ml @ 100 mls/hr Q6HRS IV Last administered on 03/14/21at 12:30; Start 03/12/21 at 00:00 Clotrimazole (Mycelex-7) 1 vance BID VG Last administered on 03/14/21at 10:28; Start 03/11/21 at 21:00; Stop 03/18/21 at 20:59 Meropenem 100 mg/ Sodium Chloride 50 ml @ 200 mls/hr 1X ONCE IV Last administered on 03/11/21at 16:15; Start 03/11/21 at 16:15; Stop 03/11/21 at 16:29; Status DC Meropenem 400 mg/ Sodium Chloride 50 ml @ 100 mls/hr 1X ONCE IV Last administered on 03/11/21at 17:29; Start 03/11/21 at 16:30; Stop 03/11/21 at 16:59; Status DC Sodium Chloride 1,000 ml @ 1,000 mls/hr 1X ONCE IV Last administered on 03/11/21at 17:30; Start 03/11/21 at 17:00; Stop 03/11/21 at 17:59; Status DC Magnesium Sulfate 50 ml @ 25 mls/hr 1X ONCE IV Last administered on 03/11/21at 18:27; Start 03/11/21 at 18:15; Stop 03/11/21 at 20:14; Status DC Insulin Human Lispro (HumaLOG) 0-9 UNITS TIDWMEALS SQ ; Start 03/12/21 at 08:00; Stop 03/11/21 at 23:12; Status DC Dextrose (Dextrose 50%-Water Syringe) 12.5 gm PRN Q15MIN PRN IV SEE COMMENTS; Start 03/11/21 at 21:45 Insulin Human Lispro (HumaLOG) 0-9 UNITS QIDACHS SQ ; Start 03/12/21 at 08:00; Stop 03/12/21 at 08:15; Status DC Sodium Chloride 1,000 ml @ 50 mls/hr Q20H IV Last administered on 03/14/21at 09:37; Start 03/11/21 at 23:15 Fentanyl Citrate 30 ml @ 2.5 mls/hr CONT PRN IV SEE PROTOCOL Last administered on 03/14/21at 00:26; Start 03/12/21 at 01:45 Midazolam HCl 100 ml @ 1 mls/hr CONT PRN IV SEE PROTOCOL Last administered on 03/12/21at 21:27; Start 03/12/21 at 01:45 Propofol 100 ml @ 2.022 mls/ hr CONT PRN IV PER PROTOCOL Last administered on 03/14/21at 07:05; Start 03/12/21 at 01:45 Vecuronium [place] (Norcuron Bolus) 6 mg PRN 1X PRN IV VENT INDUCTION; Start 03/12/21 at 01:45; Stop 03/13/21 at 01:44; Status DC Potassium Chloride/Water 100 ml @ 50 mls/hr Q2HR IV Last administered on 03/12/21at 05:18; Start 03/12/21 at 03:00; Stop 03/12/21 at 05:59; Status DC Rocuronium [place] (Zemuron) 50 mg STK-MED ONCE .ROUTE ; Start 03/12/21 at 03 :52; Stop 03/12/21 at 03:52; Status DC Etomidate (Amidate) 20 mg STK-MED ONCE IV ; Start 03/12/21 at 03:53; Stop 03/12/21 at 03:53; Status DC Insulin Human Lispro (HumaLOG) 0-9 UNITS Q6HRS SQ ; Start 03/12/21 at 12:00 Hydralazine HCl (Apresoline Inj) 10 mg PRN Q4HRS PRN IVP ELEVATED BP, SEE COMMENTS; Start 03/12/21 at 08:45 Potassium Bicarbonate (Potassium Effervescent Tablet) 40 meq 1X ONCE PEG Last administered on 03/12/21at 10:03; Start 03/12/21 at 08:45; Stop 03/12/21 at 09:02; Status DC Magnesium Sulfate 100 ml @ 25 mls/hr 1X ONCE IV Last administered on 03/12/21at 10:00; Start 03/12/21 at 09:00; Stop 03/12/21 at 12:59; Status DC Pantoprazole Sodium (PROTONIX VIAL for IV PUSH) 40 mg DAILYAC IVP Last administered on 03/14/21at 09:24; Start 03/12/21 at 10:00 Heparin Sodium (Porcine) (Heparin Sodium) 5,000 unit Q8HRS SQ Last administered on 03/14/21at 06:19; Start 03/12/21 at 14:00 Epinephrine HCl (EPINEPHrine SYRINGE) 1 mg STK-MED ONCE .ROUTE ; Start 03/12/21 at 02:04; Stop 03/13/21 at 02:04; Status DC Potassium Chloride/Water 100 ml @ 100 mls/hr Q1H IV Last administered on 03/13/21at 10:57; Start 03/13/21 at 08:00; Stop 03/13/21 at 09:59; Status DC Magnesium Sulfate 50 ml @ 25 mls/hr 1X ONCE IV Last administered on 03/13/21at 09:25; Start 03/13/21 at 07:00; Stop 03/13/21 at 08:59; Status DC Potassium Bicarbonate (Potassium Effervescent Tablet) 40 meq 1X ONCE PO Last administered on 03/13/21at 09:23; Start 03/13/21 at 07:00; Stop 03/13/21 at 07:22; Status DC Aspirin (Aspirin Chewable) 81 mg DAILYWBKFT PO Last administered on 03/14/21at 09:36; Start 03/14/21 at 09:30 Active Scripts Active Reported Gabapentin 600 Mg Tablet 300 Mg PO BID Atorvastatin Calcium 10 Mg Tablet 10 Mg PO HS Polar Freeze Gel (Menthol/Camphor) 120 Gm Gel..gram. 1 Vance TP TID Lantus (Insulin Glargine,Hum.rec.anlog) 100 Unit/1 Ml Vial 38 Unit SQ HS Omeprazole 20 Mg Capsule.dr 1 Cap PO DAILY Ibuprofen 400 Mg Tablet 400 Mg PO PRN PRN Mucinex (Guaifenesin) 600 Mg Tablet.er 1 Tab PO BID Flonase Allergy Relief (Fluticasone Propionate) 9.9 Ml [place].susp 2 Sprays NS DAILY Zyrtec (Cetirizine Hcl) 10 Mg Tablet 1 Tab PO DAILY Carvedilol (Carvedilol) 12.5 Mg Tablet 1 Tab PO BID Aspir 81 (Aspirin) 81 Mg Tablet.dr 1 Tab PO DAILY Alprazolam 0.25 Mg Tablet 1 Tab PO TID PRN PRN Vitals/I & O Vital Sign - Last 24 Hours 03/13/21 03/13/21 03/13/21 03/13/21 13:07 14:32 15:45 16:19 Temp 99.7 99.7 Pulse 69 67 65 Resp 16 16 16 B/P (MAP) 98/54 114/69 113/65 Pulse Ox 100 100 100 100 O2 Delivery Ventilator Ventilator Ventilator Ventilator 03/13/21 03/13/21 03/13/21 03/13/21 16:20 17:06 17:13 17:35 Pulse 67 67 Resp 16 B/P (MAP) 108/62 108/62 Pulse Ox 100 100 O2 Delivery Mechanical Ventilator Ventilator Ventilator 03/13/21 03/13/21 03/13/21 03/13/21 18:07 19:00 20:00 20:00 Temp 100.0 99.7 100.0 99.7 Pulse 68 68 68 Resp 16 16 16 B/P (MAP) 109/62 100/54 111/60 Pulse Ox 100 100 100 O2 Delivery Ventilator Ventilator Mechanical Ventilator Ventilator 03/13/21 03/13/21 03/13/21 03/13/21 20:14 21:00 22:00 22:00 Pulse 68 68 Resp 16 16 B/P (MAP) 122/69 109/60 Pulse Ox 100 100 100 100 O2 Delivery Ventilator Ventilator Ventilator Ventilator 03/13/21 03/14/21 03/14/21 03/14/21 23:00 00:00 00:00 00:01 Temp 99.7 99.7 Pulse 68 68 Resp 16 15 B/P (MAP) 114/67 115/65 Pulse Ox 97 99 98 O2 Delivery Ventilator Ventilator Mechanical Ventilator Ventilator 03/14/21 03/14/21 03/14/21 03/14/21 01:00 02:00 02:30 03:00 Pulse 68 64 66 Resp 16 16 16 B/P (MAP) 111/62 116/63 123/64 Pulse Ox 96 97 99 99 O2 Delivery Ventilator Ventilator Ventilator Ventilator 03/14/21 03/14/21 03/14/21 03/14/21 04:00 04:00 05:00 05:00 Temp 98.2 98.2 Pulse 68 70 Resp 15 15 B/P (MAP) 108/57 147/77 Pulse Ox 97 98 99 O2 Delivery Mechanical Ventilator Ventilator Ventilator Ventilator 03/14/21 03/14/21 03/14/21 03/14/21 06:00 07:00 08:00 08:00 Temp 99.7 99.7 99.7 99.7 Pulse 68 68 66 Resp 15 16 16 B/P (MAP) 111/58 121/62 130/69 Pulse Ox 99 99 99 O2 Delivery Ventilator Ventilator Mechanical Ventilator Ventilator 03/14/21 03/14/21 03/14/21 03/14/21 08:01 09:00 09:24 10:00 Temp 99.7 99.7 99.7 99.7 Pulse 69 68 68 Resp 16 16 B/P (MAP) 113/59 113/59 114/64 Pulse Ox 99 99 99 O2 Delivery Ventilator Ventilator Ventilator 03/14/21 03/14/21 03/14/21 03/14/21 10:16 11:00 11:53 12:00 Temp 99.7 99.9 99.7 99.9 Pulse 71 86 Resp 16 16 B/P (MAP) 115/61 191/108 Pulse Ox 99 99 97 96 O2 Delivery Ventilator Ventilator Ventilator Ventilator 03/14/21 03/14/21 03/14/21 12:01 12:09 12:10 Pulse 91 Resp 28 B/P (MAP) 139/75 Pulse Ox 92 95 89 O2 Delivery Ventilator Ventilator Intake and Output 03/13/21 03/13/21 03/14/21 15:00 23:00 07:00 Intake Total 250 ml 1609 ml 2190 ml Output Total 220 ml 390 ml 555 ml Balance 30 ml 1219 ml 1635 ml Justifications for Admission Other Justification MASSIEL STOUT MD Mar 14, 2021 12:47
[2021-03-14] MEDS ORDERED: MAGNESIUM SULFATE 4GM 100 ML IV ONE (14:00)
[2021-03-15] VITALS (24 sets, daily range): BP systolic 100–177; BP diastolic 51–91
[2021-03-15] MEDS: MEROPENEM 500 MG in IV NORMAL SALINE 50ML 50 ML IV SCH ×4 (00:09→16:59)
[2021-03-15] MEDS: INSULIN LISPRO 300 UNITS/3 ML VIAL. SQ SCH ×4 (00:22→18:00)
[2021-03-15] MEDS: PROPOFOL 100 ML IV PRN ×4 (03:44→23:40)
--- NOTE | 2021-03-15 05:50 | PDOC ---
PULMONARY PROGRESS NOTES DATE: 03/15/21 TIME: 05:50 Subjective on vent fio2 40% peep 5 didnt tolerate sbt yesterday tachycardic tachypneac sedated on propofol fentanyl Vitals Vital Signs Date Time Temp Pulse Resp B/P (MAP) Pulse Ox O2 Delivery O2 Flow Rate FiO2 03/15/21 04:00 97.9 66 14 143/72 98 Ventilator 97.9 Comments ros unable to obtain on vent sedated HEENT: Other (nc at perrl nose clear orally intubate neck no lad no thyromegaly) Lungs: Clear Cardiovascular: S1, S2 Abdomen: Soft Neuro Exam: Alert Extremities: No Edema Skin: Warm Labs Laboratory Tests Test 03/13/21 08:00 03/13/21 12:06 03/13/21 17:12 03/13/21 21:19 O2 Saturation 99 % (92-99) Arterial Blood pH 7.56 (7.35-7.45) Arterial Blood pCO2 at Patient Temp 34 mmHg (35-46) Arterial Blood pO2 at Patient Temp 134 mmHg (65-108) Arterial Blood HCO3 30 mmol/L (21-28) Arterial Blood Base Excess 7 mmol/L (-3-3) FiO2 80 Glucose (Fingerstick) 116 mg/dL (70-99) 116 mg/dL (70-99) 123 mg/dL (70-99) Test 03/13/21 23:40 03/14/21 06:15 03/14/21 08:00 03/14/21 12:28 Glucose (Fingerstick) 136 mg/dL (70-99) 115 mg/dL (70-99) White Blood Count 12.4 x10^3/uL (4.0-11.0) Red Blood Count 3.23 x10^6/uL (3.50-5.40) Hemoglobin 9.7 g/dL (12.0-15.5) Hematocrit 29.8 % (36.0-47.0) Mean Corpuscular Volume 92 fL (79-100) Mean Corpuscular Hemoglobin 30 pg (25-35) Mean Corpuscular Hemoglobin Concent 33 g/dL (31-37) Red Cell Distribution Width 16.3 % (11.5-14.5) Platelet Count 171 x10^3/uL (140-400) Neutrophils (%) (Auto) 78 % (31-73) Lymphocytes (%) (Auto) 13 % (24-48) Monocytes (%) (Auto) 7 % (0-9) Eosinophils (%) (Auto) 2 % (0-3) Basophils (%) (Auto) 1 % (0-3) Neutrophils # (Auto) 9.6 x10^3/uL (1.8-7.7) Lymphocytes # (Auto) 1.6 x10^3/uL (1.0-4.8) Monocytes # (Auto) 0.8 x10^3/uL (0.0-1.1) Eosinophils # (Auto) 0.3 x10^3/uL (0.0-0.7) Basophils # (Auto) 0.1 x10^3/uL (0.0-0.2) Sodium Level 133 mmol/L (136-145) Potassium Level 3.7 mmol/L (3.5-5.1) Chloride Level 99 mmol/L (98-107) Carbon Dioxide Level 29 mmol/L (21-32) Anion Gap 5 (6-14) Blood Urea Nitrogen 8 mg/dL (7-20) Creatinine 0.5 mg/dL (0.6-1.0) Estimated GFR (Cockcroft-Gault) 126.3 Glucose Level 132 mg/dL (70-99) Calcium Level 7.5 mg/dL (8.5-10.1) Magnesium Level 1.6 mg/dL (1.8-2.4) O2 Saturation 94 % (92-99) Arterial Blood pH 7.47 (7.35-7.45) Arterial Blood pH (Temp corrected) 7.46 Arterial Blood pCO2 at Patient Temp 35 mmHg (35-46) Arterial Blood pCO2 (Temp correct) 36 mmHg Arterial Blood pO2 at Patient Temp 74 mmHg (65-108) Arterial Blood pO2 (Temp corrected) 77 mmHg Arterial Blood HCO3 25 mmol/L (21-28) Arterial Blood Base Excess 1 mmol/L (-3-3) FiO2 50/vent Test 03/14/21 17:55 03/15/21 00:07 Glucose (Fingerstick) 157 mg/dL (70-99) 158 mg/dL (70-99) Laboratory Tests Test 03/14/21 06:15 03/14/21 08:00 03/14/21 12:28 03/14/21 17:55 White Blood Count 12.4 x10^3/uL (4.0-11.0) Red Blood Count 3.23 x10^6/uL (3.50-5.40) Hemoglobin 9.7 g/dL (12.0-15.5) Hematocrit 29.8 % (36.0-47.0) Mean Corpuscular Volume 92 fL (79-100) Mean Corpuscular Hemoglobin 30 pg (25-35) Mean Corpuscular Hemoglobin Concent 33 g/dL (31-37) Red Cell Distribution Width 16.3 % (11.5-14.5) Platelet Count 171 x10^3/uL (140-400) Neutrophils (%) (Auto) 78 % (31-73) Lymphocytes (%) (Auto) 13 % (24-48) Monocytes (%) (Auto) 7 % (0-9) Eosinophils (%) (Auto) 2 % (0-3) Basophils (%) (Auto) 1 % (0-3) Neutrophils # (Auto) 9.6 x10^3/uL (1.8-7.7) Lymphocytes # (Auto) 1.6 x10^3/uL (1.0-4.8) Monocytes # (Auto) 0.8 x10^3/uL (0.0-1.1) Eosinophils # (Auto) 0.3 x10^3/uL (0.0-0.7) Basophils # (Auto) 0.1 x10^3/uL (0.0-0.2) Sodium Level 133 mmol/L (136-145) Potassium Level 3.7 mmol/L (3.5-5.1) Chloride Level 99 mmol/L (98-107) Carbon Dioxide Level 29 mmol/L (21-32) Anion Gap 5 (6-14) Blood Urea Nitrogen 8 mg/dL (7-20) Creatinine 0.5 mg/dL (0.6-1.0) Estimated GFR (Cockcroft-Gault) 126.3 Glucose Level 132 mg/dL (70-99) Calcium Level 7.5 mg/dL (8.5-10.1) Magnesium Level 1.6 mg/dL (1.8-2.4) O2 Saturation 94 % (92-99) Arterial Blood pH 7.47 (7.35-7.45) Arterial Blood pH (Temp corrected) 7.46 Arterial Blood pCO2 at Patient Temp 35 mmHg (35-46) Arterial Blood pCO2 (Temp correct) 36 mmHg Arterial Blood pO2 at Patient Temp 74 mmHg (65-108) Arterial Blood pO2 (Temp corrected) 77 mmHg Arterial Blood HCO3 25 mmol/L (21-28) Arterial Blood Base Excess 1 mmol/L (-3-3) FiO2 50/vent Glucose (Fingerstick) 115 mg/dL (70-99) 157 mg/dL (70-99) Test 03/15/21 00:07 Glucose (Fingerstick) 158 mg/dL (70-99) Medications Active Scripts Medications Dose Route/Sig Max Daily Dose Days Date Category Gabapentin 600 Mg Tablet 300 Mg PO BID 03/10/21 Reported Atorvastatin Calcium 10 Mg Tablet 10 Mg PO HS 03/10/21 Reported Polar Freeze Gel (Menthol/Camphor) 120 Gm Gel..gram. 1 Vance TP TID 03/10/21 Reported Lantus (Insulin Glargine,Hum.rec.anlog) 100 Unit/1 Ml Vial 38 Unit SQ HS 03/10/21 Reported Omeprazole 20 Mg Capsule.dr 1 Cap PO DAILY 10/16/15 Reported Ibuprofen 400 Mg Tablet 400 Mg PO PRN PRN 10/16/15 Reported Mucinex (Guaifenesin) 600 Mg Tablet.er 1 Tab PO BID 10/16/15 Reported Flonase Allergy Relief (Fluticasone Propionate) 9.9 Ml [place].susp 2 Sprays NS DAILY 10/16/15 Reported Zyrtec (Cetirizine Hcl) 10 Mg Tablet 1 Tab PO DAILY 10/16/15 Reported Carvedilol (Carvedilol) 12.5 Mg Tablet 1 Tab PO BID 10/16/15 Reported Aspir 81 (Aspirin) 81 Mg Tablet.dr 1 Tab PO DAILY 10/16/15 Reported Alprazolam 0.25 Mg Tablet 1 Tab PO TID PRN PRN 10/16/15 Reported Comments cxr reviewed ett ok rll infilt worse lll infilt Impression . IMPRESSION: 1. Acute hypoxemic respiratory failure, multifactorial. 2. Septic shock. 3. Leukocytosis. 4. Urinary tract infection, possible renal abscess. 5. Acute kidney injury. 6. Hypokalemia. resolved 7. Metabolic toxic encephalopathy. 8. Alcohol dependence. Gram-negative bacteremia 4 out of 4 bottles present on admission at [facility],E coli pansensitive Blood culture positive here with gram-negative adryan kidney abcess Plan . Updated 03/15 cont vent support setting reviewed will decrease sedation sbt when awake may need precedex is heavy alcohol user monitor for withdrawal hep sq protonix for prophylaxis fu final cxs Continue antibiotics per id elevate hob monitor potassium Discussed with RN and RT Updated 03/14 cont vent support setting reviewed will decrease sedation sbt when awake hep sq protonix for prophylaxis Blood cultures negative so far Continue empiric antibiotics Follow ID input Adjust minute ventilation to normalize pH monitor potassium Discussed with RN and RT Updated 03/13 Blood cultures negative so far Continue empiric antibiotics Titrate FiO2 Follow ID input Discussed with RN and RT Adjust minute ventilation to normalize pH Replace potassium 03/12 PLAN: 1. We will continue current assist control ventilation. 2. Support with IV antibiotics. 3. IV fluids. 4. Empiric antibiotics, Levaquin and Zyvox for now. 5. Follow urine culture and sensitivity. I do appreciate the privilege in sharing in the patient's care. MARCOS WOOD MD Mar 15, 2021 05:50
--- NOTE | 2021-03-15 05:58 | RAD ---
XR CHEST 1V 03/15/2021 5:12 AM INDICATION: Post intubation COMPARISON: 03/14/2021 TECHNIQUE: Portable frontal view of the chest is provided. FINDINGS/ IMPRESSION: Right upper extremity PICC is in similar position. Nasogastric tube is in similar position. The cardiomediastinal silhouette is within normal limits. Lungs are clear. Small bilateral pleural effusions with adjacent basilar atelectasis versus infiltrate. Findings are n ot significantly changed. Mild pulmonary vascular congestion. No pneumothorax. Electronically signed by: Liv Mcclendon MD (03/15/2021 5:56 AM) JAX
[2021-03-15] MEDS: HEPARIN for SUB-Q USE 5,000 UNIT/ML VIAL. SQ SCH ×3 (06:17→22:04)
[2021-03-15 06:26] LABS: BASO % 0 % (0-3); EOS # 0.2 x10^3/uL (0.0-0.7); EOS % 2 % (0-3); HEMOGLOBIN 9.7 g/dL (12.0-15.5); LYMPH # 1.4 x10^3/uL (1.0-4.8); LYMPH % 13 % (24-48); MEAN CORPUSCULAR HEMOGLOBIN 31 pg (25-35); MEAN CORPUSCULAR HGB CONC 33 g/dL (31-37); MEAN CORPUSCULAR VOLUME 92 fL (79-100); MONO # 0.7 x10^3/uL (0.0-1.1); MONO % 6 % (0-9); NEUT # 8.3 x10^3/uL (1.8-7.7); NEUT % 78 % (31-73); PLATELET COUNT 188 x10^3/uL (140-400); RED BLOOD COUNT 3.16 x10^6/uL (3.50-5.40); RED CELL DISTRIBUTION WIDTH 16.8 % (11.5-14.5); WHITE BLOOD COUNT 10.7 x10^3/uL (4.0-11.0)
[2021-03-15 06:36] LABS: CALCIUM 7.5 mg/dL (8.5-10.1); CREATININE 0.4 mg/dL (0.6-1.0); GFR 163.4; POTASSIUM 3.5 mmol/L (3.5-5.1)
[2021-03-15] MEDS: IV NORMAL SALINE 1000ML BAG 1,000 ML IV SCH (07:32)
[2021-03-15] MEDS: ASPIRIN CHEWABLE 81 MG TABLET. PO SCH (07:33)
[2021-03-15] MEDS: PANTOPRAZOLE IV PUSH 40 MG VIAL. IVP SCH (07:33)
[2021-03-15] MEDS: CARVEDILOL 12.5 MG TABLET. PO SCH ×2 (07:33→16:59)
[2021-03-15] MEDS: GABAPENTIN 300 MG CAPSULE. PO SCH ×2 (07:33→20:54)
[2021-03-15] MEDS: LACTOBACILLUS RHAMNOSUS GG 1 CAPSULE. PO SCH ×2 (07:33→20:54)
[2021-03-15] MEDS: CETIRIZINE HCL 10 MG TABLET. PO SCH (07:33)
[2021-03-15] MEDS: NICOTINE 14MG PATCH. TD SCH (07:34)
--- NOTE | 2021-03-15 08:03 | PDOC ---
[employer] PROGRESS NOTE Date of Service DOS: DATE: 03/15/21 TIME: 07:50 Chief Complaint Chief Complaint A/P: Septic shock Renal abscess UTI (urinary tract infection) - Acute pyelonephritis Gram negative bacteremia - ID consulted Hypokalemia Hypomagnesemia Elevated troponin Acute encephalopathy - sepsis vs ETOH/benzo withdrawal. On CIWA and treating sepsis Lactic acidosis - sepsis vs seizure Acute kidney injury - vasomotor nephropathy from sepsis Hyponatremia - likely hypovolemic, will monitor ETOH dependence, recently discharged from rehab facility. Elevated troponin - unclear etiology, likely demand from sepsis. Cardiology consulted FEN - regular diet PPX - heparin FULL CODE Dispo - transfer to ICU History of Present Illness History of Present Illness Ms Barber is a 60-year-old female who presented via EMS to [facility] in [place] with report of altered mental status. Patient reportedly was found laying across the toilet resting her head in the shower by her son with altered mental state. Patient does have a history of alcohol abuse and recently was discharged from rehab after she was hospitalized at [facility]. EMS reports noting many empty beer cans found in the home. Patient does report drinking recently. Patient reports nausea and vomiting. Patient denies headache or neck pain. Patient reports she feels "ill ". Patient has received [employer] Covid vaccination. No recent sick contacts EKG Sinus tachycardia at 129bpm, occasional PVC, NO ST elevation, QRS 108ms, QT/QTc 326/479ms Initial labs NA 120 6K3.3, BUN 14, CR 1.3, glucose 199, magnesium 1.4, bilirubin 1.6, AST 36 ALT 26 alk phos 4 3, albumin 2.4, troponin 0.05 7.2179 0.291, ammonia 39, lactic acid 8.3, ethanol undetectable urine benzodiazepines positive COVID-19 rapid PCR negative, urinalysis positive for leuk esterase and nitrates. Blood cultures positive for 2 out of 4 bottles gram-negative adryan Chest x-ray stable. CT head/cervical spine without acute finding. CTA chest and abdomen/pelvis w/ IV contrast obtained with findings concerning for right sided renal abscess. Empiric antibiotic coverage added with vancomycin. Transferred to [place] for further care. 03/11: Seen bedside, confused, tachycardic, asking if she can have some xanax. Not oriented, tachycardic, blood cultures notes. Transferred to ICU for worsening mental status, concern for seizure prior to arrival and impending potential septic shock. 03/12: This patient the ICU overnight that CODE BLUE was called. I discussion with ED attending (Dr. Hernández); patient went into A. fib and then subsequently PEA. She was intubated for airway protection, but there was some concern for a spiration. Chest x-ray showed diffuse central predominant infiltrates. We will continue IV antibiotics, per ID. Per Dr. More, renal abscess under 5 cm code be managed with antibiotics alone. Will monitor blood cultures and urine cultures from [facility], however if causative organism is uncertain, simply abscess could be beneficial to guide therapy. Critical care time 30 minutes spent reviewing charts, reviewing labs, imaging, discussion with RN. 03/13: Afebrile. On vent with FiO2 80%, PEEP 5. Potassium 2.8 with morning, replaced. WBC 12.5. Antibiotics been changed to meropenem; further antibiotic recommendations per ID. Continue IV antibiotics for now and look to repeat CT/abdomen pelvis in the next day or so. Critical care time 30 minutes spent reviewing charts, reviewing labs, imaging, discussion with RN. 03/14: Afebrile. On vent with FiO2 50%, PEEP 5. Leukocytosis improving, WBC 12.4 today. ABG showed pH 7.47. We will continue to follow blood cultures; gram-negative rods in 1 of 3 bottles, likely E. coli. Continue meropenem, per ID. Patient not candidate for drainage, per IR. Will need repeat CT abdom en/pelvis if patient can tolerate. Critical care time 30 minutes spent reviewing charts, reviewing labs, imaging, discussion with RN. 03/15: Afebrile. On vent with FiO2 40%, PEEP 5. Will continue meropenem for renal mass with gram-negative bacteremia. Per Dr. More, mass not amenable to drainage at this time based on size. Will likely need repeat CT abdomen/pelvis when patient can tolerate. Critical care time 30 minutes spent reviewing charts, reviewing labs, imaging, discussion with RN. Vitals/I&O Vitals/I&O: Vital Signs Date Time Temp Pulse Resp B/P (MAP) Pulse Ox O2 Delivery O2 Flow Rate FiO2 03/15/21 07:33 69 109/64 03/15/21 07:00 14 98 Ventilator 03/15/21 04:00 97.9 97.9 I & O 03/14/21 03/14/21 03/15/21 15:00 23:00 07:00 Intake Total 642 ml 1519.14 ml 1643.49 ml Output Total 475 ml 790 ml 385 ml Balance 167 ml 729.14 ml 1258.49 ml Physical Exam Physical Exam: GENERAL: Intubated sedated HEENT: Normocephalic, atraumatic. Anicteric. Mild conjunctival irritation, ETT/OGT present, no conjunctival petechia NECK: Supple. No tenderness. LUNGS: Clear bilaterally. HEART: S1, S2, No murmurs. ABDOMEN: Soft, mild diffuse tenderness, slightly distended. Bowel sounds present. No guarding, no rigidity. EXTREMITIES: Trace edema, no cyanosis. DERMATOLOGIC: Warm, dry. No generalized rash. NEUROLOGIC: Intubated, sedated, arousable with verbal stimuli opens eyes transiently, was able to move all extremities on admission Babin in place General: Other (Intubated) Heart: Regular rate Lungs: Clear Abdomen: Normal bowel sounds Extremities: No edema, Normal pulses Skin: No breakdown, No significant lesion Labs Labs: Laboratory Tests Test 03/14/21 08:00 03/14/21 12:28 03/14/21 17:55 03/15/21 00:07 O2 Saturation 94 % (92-99) Arterial Blood pH 7.47 (7.35-7.45) Arterial Blood pH (Temp corrected) 7.46 Arterial Blood pCO2 at Patient Temp 35 mmHg (35-46) Arterial Blood pCO2 (Temp correct) 36 mmHg Arterial Blood pO2 at Patient Temp 74 mmHg (65-108) Arterial Blood pO2 (Temp corrected) 77 mmHg Arterial Blood HCO3 25 mmol/L (21-28) Arterial Blood Base Excess 1 mmol/L (-3-3) FiO2 50/vent Glucose (Fingerstick) 115 mg/dL (70-99) 157 mg/dL (70-99) 158 mg/dL (70-99) Test 03/15/21 06:07 03/15/21 06:10 Glucose (Fingerstick) 130 mg/dL (70-99) White Blood Count 10.7 x10^3/uL (4.0-11.0) Red Blood Count 3.16 x10^6/uL (3.50-5.40) Hemoglobin 9.7 g/dL (12.0-15.5) Hematocrit 29.0 % (36.0-47.0) Mean Corpuscular Volume 92 fL (79-100) Mean Corpuscular Hemoglobin 31 pg (25-35) Mean Corpuscular Hemoglobin Concent 33 g/dL (31-37) Red Cell Distribution Width 16.8 % (11.5-14.5) Platelet Count 188 x10^3/uL (140-400) Neutrophils (%) (Auto) 78 % (31-73) Lymphocytes (%) (Auto) 13 % (24-48) Monocytes (%) (Auto) 6 % (0-9) Eosinophils (%) (Auto) 2 % (0-3) Basophils (%) (Auto) 0 % (0-3) Neutrophils # (Auto) 8.3 x10^3/uL (1.8-7.7) Lymphocytes # (Auto) 1.4 x10^3/uL (1.0-4.8) Monocytes # (Auto) 0.7 x10^3/uL (0.0-1.1) Eosinophils # (Auto) 0.2 x10^3/uL (0.0-0.7) Basophils # (Auto) 0.0 x10^3/uL (0.0-0.2) Sodium Level 133 mmol/L (136-145) Potassium Level 3.5 mmol/L (3.5-5.1) Chloride Level 101 mmol/L (98-107) Carbon Dioxide Level 28 mmol/L (21-32) Anion Gap 4 (6-14) Blood Urea Nitrogen 8 mg/dL (7-20) Creatinine 0.4 mg/dL (0.6-1.0) Estimated GFR (Cockcroft-Gault) 163.4 Glucose Level 145 mg/dL (70-99) Calcium Level 7.5 mg/dL (8.5-10.1) Magnesium Level 1.8 mg/dL (1.8-2.4) Comment Review of Relevant I have reviewed the following items celeste (where applicable) has been applied. Medications: Current Medications Medications (Trade) Dose Ordered Sig/Radha Route PRN Reason Start Time Stop Time Status Last Admin Dose Admin Aspirin (Aspirin Chewable) 81 mg [id number] PO 03/14/21 09:30 03/15/21 07:33 Magnesium Sulfate 100 ml @ 25 mls/hr 1X ONCE IV 03/14/21 14:00 03/14/21 17:59 DC 03/14/21 13:46 Justifications for Admission Other Justification IVETT TESFAYE MD Mar 15, 2021 08:02
[2021-03-15 08:12] LABS: BASE EXCESS ABG 0 mmol/L (-3-3); HCO3 ABG 24 mmol/L (21-28); PCO2 ABG 36 mmHg (35-46); PO2 ABG 70 mmHg (65-108); SAT O2 ABG 94 % (92-99)
[2021-03-15 08:14] LABS: FIO2 ABG 40/VENT
--- NOTE | 2021-03-15 09:17 | PDOC ---
Infectious Disease Note Subjective: Subjective Patient intubated/sedated Remains afebrile Was not able to tolerate vent trial yesterday. White count is normalized No acute issues per discussion with nursing staff. Vital Signs: Vital Signs Vital Signs Date Time Temp Pulse Resp B/P (MAP) Pulse Ox O2 Delivery O2 Flow Rate FiO2 03/15/21 08:02 98 Ventilator 03/15/21 08:00 98.8 65 13 118/63 98.8 Physical Exam: PHYSICAL EXAM GENERAL: Intubated sedated HEENT: Normocephalic, atraumatic. Anicteric. Mild conjunctival irritation, ETT/OGT present, no conjunctival petechia NECK: Supple. No tenderness. LUNGS: Clear bilaterally. HEART: S1, S2, No murmurs. ABDOMEN: Soft, mild diffuse tenderness, slightly distended. Bowel sounds present. No guarding, no rigidity. EXTREMITIES: Trace edema, no cyanosis. DERMATOLOGIC: Warm, dry. No generalized rash. NEUROLOGIC: Intubated, sedated, arousable with verbal stimuli opens eyes transiently, was able to move all extremities on admission Babin in place Medications: Inpatient Meds: Medications reviewed. Labs: Lab Laboratory Tests Test 03/14/21 12:28 03/14/21 17:55 03/15/21 00:07 03/15/21 06:07 Glucose (Fingerstick) 115 mg/dL (70-99) 157 mg/dL (70-99) 158 mg/dL (70-99) 130 mg/dL (70-99) Test 03/15/21 06:10 03/15/21 08:00 White Blood Count 10.7 x10^3/uL (4.0-11.0) Red Blood Count 3.16 x10^6/uL (3.50-5.40) Hemoglobin 9.7 g/dL (12.0-15.5) Hematocrit 29.0 % (36.0-47.0) Mean Corpuscular Volume 92 fL (79-100) Mean Corpuscular Hemoglobin 31 pg (25-35) Mean Corpuscular Hemoglobin Concent 33 g/dL (31-37) Red Cell Distribution Width 16.8 % (11.5-14.5) Platelet Count 188 x10^3/uL (140-400) Neutrophils (%) (Auto) 78 % (31-73) Lymphocytes (%) (Auto) 13 % (24-48) Monocytes (%) (Auto) 6 % (0-9) Eosinophils (%) (Auto) 2 % (0-3) Basophils (%) (Auto) 0 % (0-3) Neutrophils # (Auto) 8.3 x10^3/uL (1.8-7.7) Lymphocytes # (Auto) 1.4 x10^3/uL (1.0-4.8) Monocytes # (Auto) 0.7 x10^3/uL (0.0-1.1) Eosinophils # (Auto) 0.2 x10^3/uL (0.0-0.7) Basophils # (Auto) 0.0 x10^3/uL (0.0-0.2) Sodium Level 133 mmol/L (136-145) Potassium Level 3.5 mmol/L (3.5-5.1) Chloride Level 101 mmol/L (98-107) Carbon Dioxide Level 28 mmol/L (21-32) Anion Gap 4 (6-14) Blood Urea Nitrogen 8 mg/dL (7-20) Creatinine 0.4 mg/dL (0.6-1.0) Estimated GFR (Cockcroft-Gault) 163.4 Glucose Level 145 mg/dL (70-99) Calcium Level 7.5 mg/dL (8.5-10.1) Magnesium Level 1.8 mg/dL (1.8-2.4) O2 Saturation 94 % (92-99) Arterial Blood pH 7.44 (7.35-7.45) Arterial Blood pCO2 at Patient Temp 36 mmHg (35-46) Arterial Blood pO2 at Patient Temp 70 mmHg (65-108) Arterial Blood HCO3 24 mmol/L (21-28) Arterial Blood Base Excess 0 mmol/L (-3-3) FiO2 40/vent Objective: Assessment: Gram-negative bacteremia 4 out of 4 bottles present on admission at [facility],E coli pansensitive Blood culture positive here with gram-negative adryan Septic Shock from gram-negative sepsis Leukocytosis and lactic acidosis, source genitourinary. Urinary tract infection with renal mass, possible renal abscess, not a candidate for IR drainage. EtOH withdrawal Status post A. fib, idioventricular rhythm, asystole, status post cardiac arrest 03/04/2021 Acute hypoxic failure status post intubation 03/12/2021 Acute kidney injury. Febrile illness. Leukocytosis and bandemia. Hyponatremia. History of kidney stone. Encephalopathy, appears multifactorial including metabolic and anxiolytic medication ETOH dependence, recently discharged from rehab facility. Elevated troponin. Hypokalemia and hypomagnesemia. Cirrhosis History of hyperammonemia MARTINEZ suspect with the underlying benzodiazepine dependence Hypertension with hypertensive urgency diabetes mellitus 2 tobacco dependence History of vaginitis. ALLERGIES TO PENICILLIN WITH HIVES AND THROAT SWELLING. Tolerated meropenem test dose well on 03/11/2021 History of recurrent cardiac arrest recent 1 during last hospitalization at [facility] January 2021 Plan: Plan of Care Follow-up GNR in blood culture here, will be likely E. coli from renal abscess Continue meropenem patient has tolerated it well Off Levaquin and Zyvox Clotrimazole vaginal cream Monitor labs and cultures. Monitor blood cultures and urine cultures from [facility]. IR has evaluated the patient. The patient is not a candidate for drainage at this time. The patient may need transfer to tertiary care center with urology consultation if continues to worsen or does not improve Patient will need repeat CT abdomen and pelvis imaging. Critically ill. Prognosis guarded Discussed with nursing staff. QUINTON DANIELS MD Mar 15, 2021 09:17
[2021-03-15] MEDS: CLOTRIMAZOLE 1% VAGINAL CREAM 45GM TUBE. VG SCH ×2 (10:31→20:54)
--- NOTE | 2021-03-15 16:21 | PDOC ---
PROGRESS NOTES Date of Service DATE: 03/15/21 TIME: 16:18 Subjective Subjective Patient seen and examined Objective Objective Vital Signs Date Time Temp Pulse Resp B/P (MAP) Pulse Ox O2 Delivery O2 Flow Rate FiO2 03/15/21 16:00 Mechanical Ventilator 03/15/21 16:00 100.0 77 14 164/87 95 100.0 03/13/21 12:35 3.0 Intake and Output 03/15/21 07:00 Intake Total 3804.63 ml Output Total 1650 ml Balance 2154.63 ml IV Total 1968.63 ml Tube Feeding 1836 ml Output Urine Total 1650 ml Gastric Drainage Total 0 ml Physical Exam Abdomen: Normal bowel sounds Heart: Regular rate General: Other (Intubated on a ventilator) Lungs: Other (Decreased breath sounds) Assessment Assessment Leukocytosis, lactic acidosis, UTI, fevers, sepsis. Antibiotics as per ID. Acute respiratory failure, PEA arrest. 4 mins to ROSC. s/p intubation. No VT/VF Sinus tachycardia. Mild troponin elevation; highest 0.29. Most probable type II, demand ischemia in setting of above. Echo with preserved LV systolic function CAD; mild, non-obstructive per cath 2012 Chronic systolic CHF, dilated cardiomyopathy; Echo 10/03 with LVEF 45%. Compensated Hypertension; controlled Hyperlipidemia; statin DOMI; improving Diabetes, II Hypothyroidism H/o ETOH abuse; recent discharged from rehab facility. neg upon admission Hypokalemia, hypomagnesemia; replacement ongoing, morning potassium of 3.5 with a magnesium of 1.8. Comment Review of Relevant I have reviewed the following items celeste (where applicable) has been applied. Labs Laboratory Tests Test 03/13/21 17:12 03/13/21 21:19 03/13/21 23:40 03/14/21 06:15 Glucose (Fingerstick) 116 mg/dL (70-99) 123 mg/dL (70-99) 136 mg/dL (70-99) White Blood Count 12.4 x10^3/uL (4.0-11.0) Red Blood Count 3.23 x10^6/uL (3.50-5.40) Hemoglobin 9.7 g/dL (12.0-15.5) Hematocrit 29.8 % (36.0-47.0) Mean Corpuscular Volume 92 fL (79-100) Mean Corpuscular Hemoglobin 30 pg (25-35) Mean Corpuscular Hemoglobin Concent 33 g/dL (31-37) Red Cell Distribution Width 16.3 % (11.5-14.5) Platelet Count 171 x10^3/uL (140-400) Neutrophils (%) (Auto) 78 % (31-73) Lymphocytes (%) (Auto) 13 % (24-48) Monocytes (%) (Auto) 7 % (0-9) Eosinophils (%) (Auto) 2 % (0-3) Basophils (%) (Auto) 1 % (0-3) Neutrophils # (Auto) 9.6 x10^3/uL (1.8-7.7) Lymphocytes # (Auto) 1.6 x10^3/uL (1.0-4.8) Monocytes # (Auto) 0.8 x10^3/uL (0.0-1.1) Eosinophils # (Auto) 0.3 x10^3/uL (0.0-0.7) Basophils # (Auto) 0.1 x10^3/uL (0.0-0.2) Sodium Level 133 mmol/L (136-145) Potassium Level 3.7 mmol/L (3.5-5.1) Chloride Level 99 mmol/L (98-107) Carbon Dioxide Level 29 mmol/L (21-32) Anion Gap 5 (6-14) Blood Urea Nitrogen 8 mg/dL (7-20) Creatinine 0.5 mg/dL (0.6-1.0) Estimated GFR (Cockcroft-Gault) 126.3 Glucose Level 132 mg/dL (70-99) Calcium Level 7.5 mg/dL (8.5-10.1) Magnesium Level 1.6 mg/dL (1.8-2.4) Test 03/14/21 08:00 03/14/21 12:28 03/14/21 17:55 03/15/21 00:07 O2 Saturation 94 % (92-99) Arterial Blood pH 7.47 (7.35-7.45) Arterial Blood pH (Temp corrected) 7.46 Arterial Blood pCO2 at Patient Temp 35 mmHg (35-46) Arterial Blood pCO2 (Temp correct) 36 mmHg Arterial Blood pO2 at Patient Temp 74 mmHg (65-108) Arterial Blood pO2 (Temp corrected) 77 mmHg Arterial Blood HCO3 25 mmol/L (21-28) Arterial Blood Base Excess 1 mmol/L (-3-3) FiO2 50/vent Glucose (Fingerstick) 115 mg/dL (70-99) 157 mg/dL (70-99) 158 mg/dL (70-99) Test 03/15/21 06:07 03/15/21 06:10 03/15/21 08:00 03/15/21 12:32 Glucose (Fingerstick) 130 mg/dL (70-99) 141 mg/dL (70-99) White Blood Count 10.7 x10^3/uL (4.0-11.0) Red Blood Count 3.16 x10^6/uL (3.50-5.40) Hemoglobin 9.7 g/dL (12.0-15.5) Hematocrit 29.0 % (36.0-47.0) Mean Corpuscular Volume 92 fL (79-100) Mean Corpuscular Hemoglobin 31 pg (25-35) Mean Corpuscular Hemoglobin Concent 33 g/dL (31-37) Red Cell Distribution Width 16.8 % (11.5-14.5) Platelet Count 188 x10^3/uL (140-400) Neutrophils (%) (Auto) 78 % (31-73) Lymphocytes (%) (Auto) 13 % (24-48) Monocytes (%) (Auto) 6 % (0-9) Eosinophils (%) (Auto) 2 % (0-3) Basophils (%) (Auto) 0 % (0-3) Neutrophils # (Auto) 8.3 x10^3/uL (1.8-7.7) Lymphocytes # (Auto) 1.4 x10^3/uL (1.0-4.8) Monocytes # (Auto) 0.7 x10^3/uL (0.0-1.1) Eosinophils # (Auto) 0.2 x10^3/uL (0.0-0.7) Basophils # (Auto) 0.0 x10^3/uL (0.0-0.2) Sodium Level 133 mmol/L (136-145) Potassium Level 3.5 mmol/L (3.5-5.1) Chloride Level 101 mmol/L (98-107) Carbon Dioxide Level 28 mmol/L (21-32) Anion Gap 4 (6-14) Blood Urea Nitrogen 8 mg/dL (7-20) Creatinine 0.4 mg/dL (0.6-1.0) Estimated GFR (Cockcroft-Gault) 163.4 Glucose Level 145 mg/dL (70-99) Calcium Level 7.5 mg/dL (8.5-10.1) Magnesium Level 1.8 mg/dL (1.8-2.4) O2 Saturation 94 % (92-99) Arterial Blood pH 7.44 (7.35-7.45) Arterial Blood pCO2 at Patient Temp 36 mmHg (35-46) Arterial Blood pO2 at Patient Temp 70 mmHg (65-108) Arterial Blood HCO3 24 mmol/L (21-28) Arterial Blood Base Excess 0 mmol/L (-3-3) FiO2 40/vent Laboratory Tests Test 03/14/21 17:55 03/15/21 00:07 03/15/21 06:07 03/15/21 06:10 Glucose (Fingerstick) 157 mg/dL (70-99) 158 mg/dL (70-99) 130 mg/dL (70-99) White Blood Count 10.7 x10^3/uL (4.0-11.0) Red Blood Count 3.16 x10^6/uL (3.50-5.40) Hemoglobin 9.7 g/dL (12.0-15.5) Hematocrit 29.0 % (36.0-47.0) Mean Corpuscular Volume 92 fL (79-100) Mean Corpuscular Hemoglobin 31 pg (25-35) Mean Corpuscular Hemoglobin Concent 33 g/dL (31-37) Red Cell Distribution Width 16.8 % (11.5-14.5) Platelet Count 188 x10^3/uL (140-400) Neutrophils (%) (Auto) 78 % (31-73) Lymphocytes (%) (Auto) 13 % (24-48) Monocytes (%) (Auto) 6 % (0-9) Eosinophils (%) (Auto) 2 % (0-3) Basophils (%) (Auto) 0 % (0-3) Neutrophils # (Auto) 8.3 x10^3/uL (1.8-7.7) Lymphocytes # (Auto) 1.4 x10^3/uL (1.0-4.8) Monocytes # (Auto) 0.7 x10^3/uL (0.0-1.1) Eosinophils # (Auto) 0.2 x10^3/uL (0.0-0.7) Basophils # (Auto) 0.0 x10^3/uL (0.0-0.2) Sodium Level 133 mmol/L (136-145) Potassium Level 3.5 mmol/L (3.5-5.1) Chloride Level 101 mmol/L (98-107) Carbon Dioxide Level 28 mmol/L (21-32) Anion Gap 4 (6-14) Blood Urea Nitrogen 8 mg/dL (7-20) Creatinine 0.4 mg/dL (0.6-1.0) Estimated GFR (Cockcroft-Gault) 163.4 Glucose Level 145 mg/dL (70-99) Calcium Level 7.5 mg/dL (8.5-10.1) Magnesium Level 1.8 mg/dL (1.8-2.4) Test 03/15/21 08:00 03/15/21 12:32 O2 Saturation 94 % (92-99) Arterial Blood pH 7.44 (7.35-7.45) Arterial Blood pCO2 at Patient Temp 36 mmHg (35-46) Arterial Blood pO2 at Patient Temp 70 mmHg (65-108) Arterial Blood HCO3 24 mmol/L (21-28) Arterial Blood Base Excess 0 mmol/L (-3-3) FiO2 40/vent Glucose (Fingerstick) 141 mg/dL (70-99) Microbiology 03/11/21 Blood Culture - Final, Complete Medications Current Medications Levofloxacin/ Dextrose 50 ml @ 50 mls/hr Q24H IV Last administered on 03/10/21at 19:48; Start 03/10/21 at 19:00; Stop 03/11/21 at 08:25; Status DC Acetaminophen (Tylenol) 650 mg PRN Q6HRS PRN PO MILD PAIN / TEMP > 100.3'F Last administered on 03/11/21at 09:08; Start 03/10/21 at 18:45 Nicotine (Nicoderm Cq 14mg) 1 patch DAILY TD Last administered on 03/15/21at 07:34; Start 03/10/21 at 19:00 Gabapentin (Neurontin) 300 mg BID PO Last administered on 03/15/21at 07:33; Start 03/10/21 at 23:00 Lorazepam (Ativan) 4 mg PRN Q1HR PRN PO For CIWA 8-14 Last administered on 03/10/21at 23:03; Start 03/10/21 at 23:00; Stop 03/11/21 at 09:25; Status DC Lorazepam (Ativan) 8 mg PRN Q1HR PRN PO For CIWA 15 or greater; Start 03/10/21 at 23:00; Stop 03/11/21 at 09:25; Status DC Sodium Chloride 1,000 ml @ 125 mls/hr 1X ONCE IV Last administered on 03/11/21at 08:55; Start 03/11/21 at 08:30; Stop 03/11/21 at 16:29; Status DC Levofloxacin/ Dextrose 150 ml @ 100 mls/hr Q24H IV Last administered on 03/12/21at 13:28; Start 03/11/21 at 12:00; Stop 03/12/21 at 15:18; Status DC Multivitamins (Thera M Plus) 1 tab DAILY PO ; Start 03/16/21 at 09:00 Folic Acid (Folic Acid) 1 mg DAILY PO ; Start 03/16/21 at 09:00 Thiamine Mononitrate (Vitamin B-1) 100 mg DAILY PO ; Start 03/16/21 at 09:00 Lorazepam (Ativan Inj) 2 mg PRN Q1HR PRN IV For CIWA 8-14 Last administered on 03/11/21at 22:35; Start 03/11/21 at 08:30 Lorazepam (Ativan Inj) 4 mg PRN Q1HR PRN IV For CIWA 15 or greater Last administered on 03/12/21at 00:50; Start 03/11/21 at 08:30 Haloperidol Lactate (Haldol Inj) 5 mg PRN Q4HRS PRN IVP Hallucinatns,Confusn,Delirium; Start 03/11/21 at 08:30 Diphenhydramine HCl (Benadryl) 25 mg PRN Q15MIN PRN IVP EPS symptoms 2'Haldol admin; Start 03/11/21 at 08:30 Clonidine HCl (Catapres) 0.1 mg PRN Q1HR PRN PO SBP > 180 or DBP > 100, MRX3; Start 03/11/21 at 08:30 Lorazepam (Ativan) 1 mg PRN Q1HR PRN PO For CIWA 8-14; Start 03/11/21 at 09:30 Lorazepam (Ativan) 2 mg PRN Q1HR PRN PO For CIWA 15 or greater; Start 03/11/21 at 09:30 Linezolid/Dextrose 300 ml @ 300 mls/hr Q12HR IV Last administered on 03/12/21at 10:08; Start 03/11/21 at 12:00; Stop 03/12/21 at 15:18; Status DC Lactobacillus Rhamnosus (Culturelle) 1 cap BID PO Last administered on 03/15/21at 07:33; Start 03/11/21 at 21:00 Aspirin (Ecotrin) 81 mg DAILYWBKFT PO Last administered on 03/13/21at 09:24; Start 03/11/21 at 12:00; Stop 03/14/21 at 09:20; Status DC Aspirin (Ecotrin) 81 mg DAILY PO ; Start 03/12/21 at 09:00; Status UNV Atorvastatin Calcium (Lipitor) 10 mg HS PO ; Start 03/11/21 at 21:00; Stop 03/11/21 at 15:51; Status DC Carvedilol (Coreg) 12.5 mg BIDWMEALS PO Last administered on 03/15/21at 07:33; Start 03/11/21 at 17:00 Cetirizine HCl (ZyrTEC) 10 mg DAILY PO Last administered on 03/15/21at 07:33; Start 03/12/21 at 09:00 Insulin Glargine (Lantus Syringe) 38 unit HS SQ ; Start 03/11/21 at 21:00; Stop 03/14/21 at 17:09; Status DC Pantoprazole Sodium (Protonix) 40 mg DAILYAC PO ; Start 03/12/21 at 07:30; Stop 03/12/21 at 09:56; Status DC Meropenem 100 mg/ Sodium Chloride 50 ml @ 200 mls/hr 1X ONCE IV ; Start 03/11/21 at 14:30; Stop 03/11/21 at 14:44; Status Cancel Meropenem 400 mg/ Sodium Chloride 50 ml @ 100 mls/hr 1X ONCE IV ; Start 03/11/21 at 15:30; Stop 03/11/21 at 15:59; Status Cancel Meropenem 500 mg/ Sodium Chloride 50 ml @ 100 mls/hr Q6HRS IV Last administered on 03/15/21at 11:35; Start 03/12/21 at 00:00 Clotrimazole (Mycelex-7) 1 vance BID VG Last administered on 03/15/21at 10:31; Start 03/11/21 at 21:00; Stop 03/18/21 at 20:59 Meropenem 100 mg/ Sodium Chloride 50 ml @ 200 mls/hr 1X ONCE IV Last administered on 03/11/21at 16:15; Start 03/11/21 at 16:15; Stop 03/11/21 at 16:29; Status DC Meropenem 400 mg/ Sodium Chloride 50 ml @ 100 mls/hr 1X ONCE IV Last administered on 03/11/21at 17:29; Start 03/11/21 at 16:30; Stop 03/11/21 at 16:59; Status DC Sodium Chloride 1,000 ml @ 1,000 mls/hr 1X ONCE IV Last administered on 03/11/21at 17:30; Start 03/11/21 at 17:00; Stop 03/11/21 at 17:59; Status DC Magnesium Sulfate 50 ml @ 25 mls/hr 1X ONCE IV Last administered on 03/11/21at 18:27; Start 03/11/21 at 18:15; Stop 03/11/21 at 20:14; Status DC Insulin Human Lispro (HumaLOG) 0-9 UNITS TIDWMEALS SQ ; Start 03/12/21 at 08:00; Stop 03/11/21 at 23:12; Status DC Dextrose (Dextrose 50%-Water Syringe) 12.5 gm PRN Q15MIN PRN IV SEE COMMENTS; Start 03/11/21 at 21:45 Insulin Human Lispro (HumaLOG) 0-9 UNITS QIDACHS SQ ; Start 03/12/21 at 08:00; Stop 03/12/21 at 08:15; Status DC Sodium Chloride 1,000 ml @ 50 mls/hr Q20H IV Last administered on 03/15/21at 07:32; Start 03/11/21 at 23:15 Fentanyl Citrate 30 ml @ 2.5 mls/hr CONT PRN IV SEE PROTOCOL Last administered on 03/14/21at 23:33; Start 03/12/21 at 01:45 Midazolam HCl 100 ml @ 1 mls/hr CONT PRN IV SEE PROTOCOL Last administered on 03/12/21at 21:27; Start 03/12/21 at 01:45 Propofol 100 ml @ 2.022 mls/ hr CONT PRN IV PER PROTOCOL Last administered on 03/15/21at 13:55; Start 03/12/21 at 01:45 Vecuronium [place] (Norcuron Bolus) 6 mg PRN 1X PRN IV VENT INDUCTION; Start 03/12/21 at 01:45; Stop 03/13/21 at 01:44; Status DC Potassium Chloride/Water 100 ml @ 50 mls/hr Q2HR IV Last administered on 03/12/21at 05:18; Start 03/12/21 at 03:00; Stop 03/12/21 at 05:59; Status DC Rocuronium [place] (Zemuron) 50 mg STK-MED ONCE .ROUTE ; Start 03/12/21 at 03:52; Stop 03/12/21 at 03:52; Status DC Etomidate (Amidate) 20 mg STK-MED ONCE IV ; Start 03/12/21 at 03:53; Stop 03/12/21 at 03:53; Status DC Insulin Human Lispro (HumaLOG) 0-9 UNITS Q6HRS SQ Last administered on 03/15/21at 00:22; Start 03/12/21 at 12:00 Hydralazine HCl (Apresoline Inj) 10 mg PRN Q4HRS PRN IVP ELEVATED BP, SEE COMMENTS; Start 03/12/21 at 08:45 Potassium Bicarbonate (Potassium Effervescent Tablet) 40 meq 1X ONCE PEG Last administered on 03/12/21at 10:03; Start 03/12/21 at 08:45; Stop 03/12/21 at 09:02; Status DC Magnesium Sulfate 100 ml @ 25 mls/hr 1X ONCE IV Last administered on 03/12/21at 10:00; Start 03/12/21 at 09:00; Stop 03/12/21 at 12:59; Status DC Pantoprazole Sodium (PROTONIX VIAL for IV PUSH) 40 mg DAILYAC IVP Last administered on 03/15/21at 07:33; Start 03/12/21 at 10:00 Heparin Sodium (Porcine) (Heparin Sodium) 5,000 unit Q8HRS SQ Last administered on 03/15/21at 14:16; Start 03/12/21 at 14:00 Epinephrine HCl (EPINEPHrine SYRINGE) 1 mg STK-MED ONCE .ROUTE ; Start 03/12/21 at 02:04; Stop 03/13/21 at 02:04; Status DC Potassium Chloride/Water 100 ml @ 100 mls/hr Q1H IV Last administered on 03/13/21at 10:57; Start 03/13/21 at 08:00; Stop 03/13/21 at 09:59; Status DC Magnesium Sulfate 50 ml @ 25 mls/hr 1X ONCE IV Last administered on 03/13/21at 09:25; Start 03/13/21 at 07:00; Stop 03/13/21 at 08:59; Status DC Potassium Bicarbonate (Potassium Effervescent Tablet) 40 meq 1X ONCE PO Last administered on 03/13/21at 09:23; Start 03/13/21 at 07:00; Stop 03/13/21 at 07:22; Status DC Aspirin (Aspirin Chewable) 81 mg DAILYWBKFT PO Last administered on 03/15/21at 07:33; Start 03/14/21 at 09:30 Magnesium Sulfate 100 ml @ 25 mls/hr 1X ONCE IV Last administered on 03/14at 13:46; Start 03/14/21 at 14:00; Stop 03/14/21 at 17:59; Status DC Active Scripts Active Reported Gabapentin 600 Mg Tablet 300 Mg PO BID Atorvastatin Calcium 10 Mg Tablet 10 Mg PO HS Polar Freeze Gel (Menthol/Camphor) 120 Gm Gel..gram. 1 Vance TP TID Lantus (Insulin Glargine,Hum.rec.anlog) 100 Unit/1 Ml Vial 38 Unit SQ HS Omeprazole 20 Mg Capsule.dr 1 Cap PO DAILY Ibuprofen 400 Mg Tablet 400 Mg PO PRN PRN Mucinex (Guaifenesin) 600 Mg Tablet.er 1 Tab PO BID Flonase Allergy Relief (Fluticasone Propionate) 9.9 Ml [place].susp 2 Sprays NS DAILY Zyrtec (Cetirizine Hcl) 10 Mg Tablet 1 Tab PO DAILY Carvedilol (Carvedilol) 12.5 Mg Tablet 1 Tab PO BID Aspir 81 (Aspirin) 81 Mg Tablet.dr 1 Tab PO DAILY Alprazolam 0.25 Mg Tablet 1 Tab PO TID PRN PRN Vitals/I & O Vital Sign - Last 24 Hours 03/14/21 03/14/21 03/14/21 03/14/21 17:00 17:04 17:26 18:00 Temp 100.0 100.0 100.0 100.0 Pulse 79 79 79 Resp 16 16 B/P (MAP) 125/69 125/69 165/76 Pulse Ox 98 98 96 O2 Delivery Ventilator Ventilator Ventilator 03/14/21 03/14/21 03/14/21 03/14/21 19:00 20:00 20:00 20:24 Temp 98.2 98.2 Pulse 76 72 Resp 14 14 B/P (MAP) 138/65 118/59 Pulse Ox 98 98 98 O2 Delivery Ventilator Ventilator Mechanical Ventilator Ventilator 03/14/21 03/14/21 03/14/21 03/14/21 21:00 22:00 23:00 23:29 Pulse 81 80 76 Resp 18 18 14 B/P (MAP) 188/88 139/85 102/48 Pulse Ox 96 97 97 99 O2 Delivery Ventilator Ventilator Ventilator Ventilator 03/15/21 03/15/21 03/15/21 03/15/21 00:00 00:00 01:00 02:00 Temp 99.5 99.5 Pulse 73 70 68 Resp 14 14 14 B/P (MAP) 103/51 101/57 111/61 Pulse Ox 99 98 98 O2 Delivery Ventilator Mechanical Ventilator Ventilator Ventilator 03/15/21 03/15/21 03/15/21 03/15/21 02:14 03:00 04:00 04:00 Temp 97.9 97.9 Pulse 68 66 Resp 14 14 B/P (MAP) 118/65 143/72 Pulse Ox 98 98 98 O2 Delivery Ventilator Ventilator Mechanical Ventilator Ventilator 03/15/21 03/15/21 03/15/21 03/15/21 05:00 05:18 06:00 07:00 Pulse 66 66 69 Resp 14 14 14 B/P (MAP) 129/68 128/68 109/64 Pulse Ox 98 98 98 98 O2 Delivery Ventilator Ventilator Ventilator Ventilator 03/15/21 03/15/21 03/15/21 03/15/21 07:33 08:00 08:00 08:02 Temp 98.8 98.8 Pulse 69 65 Resp 13 B/P (MAP) 109/64 118/63 Pulse Ox 98 98 O2 Delivery Mechanical Ventilator Ventilator Ventilator 03/15/21 03/15/21 03/15/21 03/15/21 09:00 10:00 10:03 11:00 Pulse 62 62 63 Resp 14 14 14 B/P (MAP) 100/55 115/65 118/66 Pulse Ox 98 98 93 96 O2 Delivery Ventilator Ventilator Ventilator Ventilator 03/15/21 03/15/21 03/15/21 03/15/21 11:32 11:35 11:36 11:55 Pulse 78 80 Resp 24 33 Pulse Ox 100 95 94 89 O2 Delivery Ventilator Ventilator 03/15/21 03/15/21 03/15/21 03/15/21 12:00 12:00 12:51 13:00 Temp 99.7 99.7 Pulse 69 75 Resp 14 14 B/P (MAP) 158/83 156/85 Pulse Ox 98 98 96 O2 Delivery Ventilator Mechanical Ventilator Ventilator Ventilator 03/15/21 03/15/21 03/15/21 03/15/21 14:00 15:00 15:57 16:00 Temp 99.7 99.7 100.0 99.7 99.7 100.0 Pulse 74 72 77 Resp 16 16 14 B/P (MAP) 123/64 118/62 164/87 Pulse Ox 98 96 96 95 O2 Delivery Ventilator Ventilator Ventilator Ventilator 03/15/21 16:00 O2 Delivery Mechanical Ventilator Intake and Output 03/14/21 03/14/21 03/15/21 15:00 23:00 07:00 Intake Total 642 ml 1519.14 ml 1643.49 ml Output Total 475 ml 790 ml 385 ml Balance 167 ml 729.14 ml 1258.49 ml Justifications for Admission Other Justification MASSIEL STOUT MD Mar 15, 2021 16:21
[2021-03-16] VITALS (24 sets, daily range): BP systolic 94–208; BP diastolic 51–98
[2021-03-16] MEDS: MEROPENEM 500 MG in IV NORMAL SALINE 50ML 50 ML IV SCH ×4 (00:06→17:33)
[2021-03-16] MEDS: IV NORMAL SALINE 1000ML BAG 1,000 ML IV SCH (05:06)
[2021-03-16] MEDS: PROPOFOL 100 ML IV PRN ×3 (05:46→20:49)
[2021-03-16] MEDS: HEPARIN for SUB-Q USE 5,000 UNIT/ML VIAL. SQ SCH ×3 (06:25→22:42)
[2021-03-16] MEDS: INSULIN LISPRO 300 UNITS/3 ML VIAL. SQ SCH ×4 (06:26→18:00)
[2021-03-16 06:32] LABS: BASO % 0 % (0-3); EOS # 0.3 x10^3/uL (0.0-0.7); EOS % 2 % (0-3); HEMATOCRIT 30.2 % (36.0-47.0); LYMPH # 1.6 x10^3/uL (1.0-4.8); LYMPH % 14 % (24-48); MEAN CORPUSCULAR HEMOGLOBIN 30 pg (25-35); MEAN CORPUSCULAR HGB CONC 33 g/dL (31-37); MEAN CORPUSCULAR VOLUME 92 fL (79-100); MONO # 0.9 x10^3/uL (0.0-1.1); MONO % 8 % (0-9); NEUT # 8.3 x10^3/uL (1.8-7.7); NEUT % 75 % (31-73); PLATELET COUNT 251 x10^3/uL (140-400); RED BLOOD COUNT 3.29 x10^6/uL (3.50-5.40); RED CELL DISTRIBUTION WIDTH 16.5 % (11.5-14.5); WHITE BLOOD COUNT 11.1 x10^3/uL (4.0-11.0)
[2021-03-16 07:11] LABS: CALCIUM 7.8 mg/dL (8.5-10.1); CREATININE 0.5 mg/dL (0.6-1.0); GFR 126.3; POTASSIUM 3.8 mmol/L (3.5-5.1)
[2021-03-16] MEDS: LACTOBACILLUS RHAMNOSUS GG 1 CAPSULE. PO SCH ×2 (08:37→20:49)
[2021-03-16] MEDS: NICOTINE 14MG PATCH. TD SCH (08:39)
[2021-03-16] MEDS: FOLIC ACID 1 MG TABLET. PO SCH (08:39)
--- NOTE | 2021-03-16 08:39 | PDOC ---
PULMONARY PROGRESS NOTES DATE: 03/16/21 TIME: 08:39 Subjective Patient currently on pressure support of 10, tidal volumes approximately 350 Appears to be following commands Agitated at times Vitals Vital Signs Date Time Temp Pulse Resp B/P (MAP) Pulse Ox O2 Delivery O2 Flow Rate FiO2 03/16/21 06:00 83 18 176/94 94 Ventilator 03/16/21 00:00 98.4 98.4 Comments ros unable to obtain on vent sedated HEENT: Other (nc at perrl nose clear orally intubate neck no lad no thyromegaly) Lungs: Clear Cardiovascular: S1, S2 Abdomen: Soft Neuro Exam: Alert Extremities: No Edema Skin: Warm Labs Laboratory Tests Test 03/14/21 12:28 03/14/21 17:55 03/15/21 00:07 03/15/21 06:07 Glucose (Fingerstick) 115 mg/dL (70-99) 157 mg/dL (70-99) 158 mg/dL (70-99) 130 mg/dL (70-99) Test 03/15/21 06:10 03/15/21 08:00 03/15/21 12:32 03/15/21 18:01 White Blood Count 10.7 x10^3/uL (4.0-11.0) Red Blood Count 3.16 x10^6/uL (3.50-5.40) Hemoglobin 9.7 g/dL (12.0-15.5) Hematocrit 29.0 % (36.0-47.0) Mean Corpuscular Volume 92 fL (79-100) Mean Corpuscular Hemoglobin 31 pg (25-35) Mean Corpuscular Hemoglobin Concent 33 g/dL (31-37) Red Cell Distribution Width 16.8 % (11.5-14.5) Platelet Count 188 x10^3/uL (140-400) Neutrophils (%) (Auto) 78 % (31-73) Lymphocytes (%) (Auto) 13 % (24-48) Monocytes (%) (Auto) 6 % (0-9) Eosinophils (%) (Auto) 2 % (0-3) Basophils (%) (Auto) 0 % (0-3) Neutrophils # (Auto) 8.3 x10^3/uL (1.8-7.7) Lymphocytes # (Auto) 1.4 x10^3/uL (1.0-4.8) Monocytes # (Auto) 0.7 x10^3/uL (0.0-1.1) Eosinophils # (Auto) 0.2 x10^3/uL (0.0-0.7) Basophils # (Auto) 0.0 x10^3/uL (0.0-0.2) Sodium Level 133 mmol/L (136-145) Potassium Level 3.5 mmol/L (3.5-5.1) Chloride Level 101 mmol/L (98-107) Carbon Dioxide Level 28 mmol/L (21-32) Anion Gap 4 (6-14) Blood Urea Nitrogen 8 mg/dL (7-20) Creatinine 0.4 mg/dL (0.6-1.0) Estimated GFR (Cockcroft-Gault) 163.4 Glucose Level 145 mg/dL (70-99) Calcium Level 7.5 mg/dL (8.5-10.1) Magnesium Level 1.8 mg/dL (1.8-2.4) O2 Saturation 94 % (92-99) Arterial Blood pH 7.44 (7.35-7.45) Arterial Blood pCO2 at Patient Temp 36 mmHg (35-46) Arterial Blood pO2 at Patient Temp 70 mmHg (65-108) Arterial Blood HCO3 24 mmol/L (21-28) Arterial Blood Base Excess 0 mmol/L (-3-3) FiO2 40/vent Glucose (Fingerstick) 141 mg/dL (70-99) 134 mg/dL (70-99) Test 03/16/21 00:28 03/16/21 06:10 03/16/21 06:18 Glucose (Fingerstick) 136 mg/dL (70-99) 170 mg/dL (70-99) White Blood Count 11.1 x10^3/uL (4.0-11.0) Red Blood Count 3.29 x10^6/uL (3.50-5.40) Hemoglobin 10.0 g/dL (12.0-15.5) Hematocrit 30.2 % (36.0-47.0) Mean Corpuscular Volume 92 fL (79-100) Mean Corpuscular Hemoglobin 30 pg (25-35) Mean Corpuscular Hemoglobin Concent 33 g/dL (31-37) Red Cell Distribution Width 16.5 % (11.5-14.5) Platelet Count 251 x10^3/uL (140-400) Neutrophils (%) (Auto) 75 % (31-73) Lymphocytes (%) (Auto) 14 % (24-48) Monocytes (%) (Auto) 8 % (0-9) Eosinophils (%) (Auto) 2 % (0-3) Basophils (%) (Auto) 0 % (0-3) Neutrophils # (Auto) 8.3 x10^3/uL (1.8-7.7) Lymphocytes # (Auto) 1.6 x10^3/uL (1.0-4.8) Monocytes # (Auto) 0.9 x10^3/uL (0.0-1.1) Eosinophils # (Auto) 0.3 x10^3/uL (0.0-0.7) Basophils # (Auto) 0.0 x10^3/uL (0.0-0.2) Sodium Level 138 mmol/L (136-145) Potassium Level 3.8 mmol/L (3.5-5.1) Chloride Level 101 mmol/L (98-107) Carbon Dioxide Level 28 mmol/L (21-32) Anion Gap 9 (6-14) Blood Urea Nitrogen 7 mg/dL (7-20) Creatinine 0.5 mg/dL (0.6-1.0) Estimated GFR (Cockcroft-Gault) 126.3 Glucose Level 154 mg/dL (70-99) Calcium Level 7.8 mg/dL (8.5-10.1) Laboratory Tests Test 03/15/21 12:32 03/15/21 18:01 03/16/21 00:28 03/16/21 06:10 Glucose (Fingerstick) 141 mg/dL (70-99) 134 mg/dL (70-99) 136 mg/dL (70-99) White Blood Count 11.1 x10^3/uL (4.0-11.0) Red Blood Count 3.29 x10^6/uL (3.50-5.40) Hemoglobin 10.0 g/dL (12.0-15.5) Hematocrit 30.2 % (36.0-47.0) Mean Corpuscular Volume 92 fL (79-100) Mean Corpuscular Hemoglobin 30 pg (25-35) Mean Corpuscular Hemoglobin Concent 33 g/dL (31-37) Red Cell Distribution Width 16.5 % (11.5-14.5) Platelet Count 251 x10^3/uL (140-400) Neutrophils (%) (Auto) 75 % (31-73) Lymphocytes (%) (Auto) 14 % (24-48) Monocytes (%) (Auto) 8 % (0-9) Eosinophils (%) (Auto) 2 % (0-3) Basophils (%) (Auto) 0 % (0-3) Neutrophils # (Auto) 8.3 x10^3/uL (1.8-7.7) Lymphocytes # (Auto) 1.6 x10^3/uL (1.0-4.8) Monocytes # (Auto) 0.9 x10^3/uL (0.0-1.1) Eosinophils # (Auto) 0.3 x10^3/uL (0.0-0.7) Basophils # (Auto) 0.0 x10^3/uL (0.0-0.2) Sodium Level 138 mmol/L (136-145) Potassium Level 3.8 mmol/L (3.5-5.1) Chloride Level 101 mmol/L (98-107) Carbon Dioxide Level 28 mmol/L (21-32) Anion Gap 9 (6-14) Blood Urea Nitrogen 7 mg/dL (7-20) Creatinine 0.5 mg/dL (0.6-1.0) Estimated GFR (Cockcroft-Gault) 126.3 Glucose Level 154 mg/dL (70-99) Calcium Level 7.8 mg/dL (8.5-10.1) Test 03/16/21 06:18 Glucose (Fingerstick) 170 mg/dL (70-99) Medications Active Scripts Medications Dose Route/Sig Max Daily Dose Days Date Category Gabapentin 600 Mg Tablet 300 Mg PO BID 03/10/21 Reported Atorvastatin Calcium 10 Mg Tablet 10 Mg PO HS 03/10/21 Reported Polar Freeze Gel (Menthol/Camphor) 120 Gm Gel..gram. 1 Vance TP TID 03/10/21 Reported Lantus (Insulin Glargine,Hum.rec.anlog) 100 Unit/1 Ml Vial 38 Unit SQ HS 03/10/21 Reported Omeprazole 20 Mg Capsule.dr 1 Cap PO DAILY 10/16/15 Reported Ibuprofen 400 Mg Tablet 400 Mg PO PRN PRN 10/16/15 Reported Mucinex (Guaifenesin) 600 Mg Tablet.er 1 Tab PO BID 10/16/15 Reported Flonase Allergy Relief (Fluticasone Propionate) 9.9 Ml Dorsey.susp 2 Sprays NS DAILY 10/16/15 Reported Zyrtec (Cetirizine Hcl) 10 Mg Tablet 1 Tab PO DAILY 10/16/15 Reported Carvedilol (Carvedilol) 12.5 Mg Tablet 1 Tab PO BID 10/16/15 Reported Aspir 81 (Aspirin) 81 Mg Tablet.dr 1 Tab PO DAILY 10/16/15 Reported Alprazolam 0.25 Mg Tablet 1 Tab PO TID PRN PRN 10/16/15 Reported Comments cxr reviewed ett ok rll infilt worse lll infilt Impression . IMPRESSION: 1. Acute hypoxemic respiratory failure, multifactorial. 2. Septic shock. 3. Leukocytosis./Bacteremia 4. Urinary tract infection, possible renal abscess. 5. Acute kidney injury. 6. Hypokalemia. resolved 7. Metabolic toxic encephalopathy. 8. Alcohol dependence. Plan . Updated 03/16 Discussed with RN and RT will attempt T-tube Hopeful to extubate today Continue antibiotics Nutritional support DVT GI prophylaxis updated 03/15 cont vent support setting reviewed will decrease sedation sbt when awake may need precedex is heavy alcohol user monitor for withdrawal hep sq protonix for prophylaxis fu final cxs Continue antibiotics per id elevate hob monitor potassium Discussed with RN and RT DANIELLE LOMAS MD Mar 16, 2021 08:39
[2021-03-16] MEDS: CARVEDILOL 12.5 MG TABLET. PO SCH ×2 (08:41→17:33)
[2021-03-16] MEDS: CETIRIZINE HCL 10 MG TABLET. PO SCH (08:43)
[2021-03-16] MEDS: MULTIVITAMIN with MINERAL TABLET. PO SCH (08:48)
[2021-03-16] MEDS: GABAPENTIN 300 MG CAPSULE. PO SCH ×2 (08:48→20:49)
[2021-03-16] MEDS: ASPIRIN CHEWABLE 81 MG TABLET. PO SCH (08:48)
[2021-03-16] MEDS: THIAMINE 100 MG TABLET. PO SCH (08:48)
[2021-03-16] MEDS: PANTOPRAZOLE IV PUSH 40 MG VIAL. IVP SCH (08:49)
[2021-03-16 08:50] LABS: BASE EXCESS ABG 4 mmol/L (-3-3); HCO3 ABG 29 mmol/L (21-28); PCO2 ABG 42 mmHg (35-46); PO2 ABG 76 mmHg (65-108); SAT O2 ABG 95 % (92-99)
[2021-03-16] MEDS: CLOTRIMAZOLE 1% VAGINAL CREAM 45GM TUBE. VG SCH ×2 (08:51→20:50)
[2021-03-16 08:52] LABS: FIO2 ABG 40
--- NOTE | 2021-03-16 09:40 | PDOC ---
Infectious Disease Note Subjective: Subjective Patient intubated/sedated Remains afebrile Opens eyes to verbal stimuli. Calm this morning per discussion with RN No acute issues per discussion with RN Vital Signs: Vital Signs Vital Signs Date Time Temp Pulse Resp B/P (MAP) Pulse Ox O2 Delivery O2 Flow Rate FiO2 03/16/21 09:00 74 20 134/72 98 Ventilator 03/16/21 08:00 98.5 98.5 Physical Exam: PHYSICAL EXAM GENERAL: Intubated sedated HEENT: Normocephalic, atraumatic. Anicteric. Mild conjunctival irritation, ETT/OGT present, no conjunctival petechia NECK: Supple. No tenderness. LUNGS: Clear bilaterally. HEART: S1, S2, No murmurs. ABDOMEN: Soft, nondistended bowel sounds present no grimacing on deep palpation EXTREMITIES: Trace edema, no cyanosis. DERMATOLOGIC: Warm, dry. No generalized rash. NEUROLOGIC: Intubated, sedated, Babin in place Right upper extremity PICC line clean Medications: Inpatient Meds: Medications reviewed. Labs: Lab Laboratory Tests Test 03/15/21 12:32 03/15/21 18:01 03/16/21 00:28 03/16/21 06:10 Glucose (Fingerstick) 141 mg/dL (70-99) 134 mg/dL (70-99) 136 mg/dL (70-99) White Blood Count 11.1 x10^3/uL (4.0-11.0) Red Blood Count 3.29 x10^6/uL (3.50-5.40) Hemoglobin 10.0 g/dL (12.0-15.5) Hematocrit 30.2 % (36.0-47.0) Mean Corpuscular Volume 92 fL (79-100) Mean Corpuscular Hemoglobin 30 pg (25-35) Mean Corpuscular Hemoglobin Concent 33 g/dL (31-37) Red Cell Distribution Width 16.5 % (11.5-14.5) Platelet Count 251 x10^3/uL (140-400) Neutrophils (%) (Auto) 75 % (31-73) Lymphocytes (%) (Auto) 14 % (24-48) Monocytes (%) (Auto) 8 % (0-9) Eosinophils (%) (Auto) 2 % (0-3) Basophils (%) (Auto) 0 % (0-3) Neutrophils # (Auto) 8.3 x10^3/uL (1.8-7.7) Lymphocytes # (Auto) 1.6 x10^3/uL (1.0-4.8) Monocytes # (Auto) 0.9 x10^3/uL (0.0-1.1) Eosinophils # (Auto) 0.3 x10^3/uL (0.0-0.7) Basophils # (Auto) 0.0 x10^3/uL (0.0-0.2) Sodium Level 138 mmol/L (136-145) Potassium Level 3.8 mmol/L (3.5-5.1) Chloride Level 101 mmol/L (98-107) Carbon Dioxide Level 28 mmol/L (21-32) Anion Gap 9 (6-14) Blood Urea Nitrogen 7 mg/dL (7-20) Creatinine 0.5 mg/dL (0.6-1.0) Estimated GFR (Cockcroft-Gault) 126.3 Glucose Level 154 mg/dL (70-99) Calcium Level 7.8 mg/dL (8.5-10.1) Test 03/16/21 06:18 03/16/21 08:00 Glucose (Fingerstick) 170 mg/dL (70-99) O2 Saturation 95 % (92-99) Arterial Blood pH 7.46 (7.35-7.45) Arterial Blood pCO2 at Patient Temp 42 mmHg (35-46) Arterial Blood pO2 at Patient Temp 76 mmHg (65-108) Arterial Blood HCO3 29 mmol/L (21-28) Arterial Blood Base Excess 4 mmol/L (-3-3) FiO2 40 Objective: Assessment: Gram-negative bacteremia 4 out of 4 bottles present on admission at [facility],E coli pansensitive Blood culture positive here with gram-negative adryan Septic Shock from gram-negative sepsis Leukocytosis and lactic acidosis, source genitourinary. Urinary tract infection with renal mass, possible renal abscess, not a candidate for IR drainage. EtOH withdrawal Status post A. fib, idioventricular rhythm, asystole, status post cardiac arrest 03/04/2021 Acute hypoxic failure status post intubation 03/12/2021 Acute kidney injury. Febrile illness. Leukocytosis and bandemia. Hyponatremia. History of kidney stone. Encephalopathy, appears multifactorial including metabolic and anxiolytic medication ETOH dependence, recently discharged from rehab facility. Elevated troponin. Hypokalemia and hypomagnesemia. Cirrhosis History of hyperammonemia MARTINEZ suspect with the underlying benzodiazepine dependence Hypertension with hypertensive urgency diabetes mellitus 2 tobacco dependence History of vaginitis. ALLERGIES TO PENICILLIN WITH HIVES AND THROAT SWELLING. Tolerated meropenem test dose well on 03/11/2021 History of recurrent cardiac arrest recent 1 during last hospitalization at [facility] January 2021 Plan: Plan of Care Continue meropenem patient has tolerated it well Off Levaquin and Zyvox Clotrimazole vaginal cream Monitor labs and cultures. Monitor blood cultures and urine cultures from [facility]. IR has evaluated the patient. The patient is not a candidate for drainage at this time. The patient may need transfer to tertiary care center with urology consultation if continues to worsen or does not improve Patient will need repeat CT abdomen and pelvis imaging. Critically ill. Prognosis guarded Discussed with nursing staff. QUINTON DANIELS MD Mar 16, 2021 09:40
--- NOTE | 2021-03-16 12:15 | PDOC ---
[employer] PROGRESS NOTE Date of Service DOS: DATE: 03/16/21 TIME: 12:13 Chief Complaint Chief Complaint A/P: Septic shock Renal abscess UTI (urinary tract infection) - Acute pyelonephritis Gram negative bacteremia - ID consulted Hypokalemia Hypomagnesemia Elevated troponin Acute encephalopathy - sepsis vs ETOH/benzo withdrawal. On CIWA and treating sepsis Lactic acidosis - sepsis vs seizure Acute kidney injury - vasomotor nephropathy from sepsis Hyponatremia - likely hypovolemic, will monitor ETOH dependence, recently discharged from rehab facility. Elevated troponin - unclear etiology, likely demand from sepsis. Cardiology consulted FEN - regular diet PPX - heparin FULL CODE Dispo - transfer to ICU History of Present Illness History of Present Illness Ms Barber is a 60-year-old female who presented via EMS to [facility] in [place] with report of altered mental status. Patient reportedly was found laying across the toilet resting her head in the shower by her son with altered mental state. Patient does have a history of alcohol abuse and recently was discharged from rehab after she was hospitalized at [facility]. EMS reports noting many empty beer cans found in the home. Patient does report drinking recently. Patient reports nausea and vomiting. Patient denies headache or neck pain. Patient reports she feels "ill ". Patient has received [employer] Covid vaccination. No recent sick contacts EKG Sinus tachycardia at 129bpm, occasional PVC, NO ST elevation, QRS 108ms, QT/QTc 326/479ms Initial labs NA 120 6K3.3, BUN 14, CR 1.3, glucose 199, magnesium 1.4, bilirubin 1.6, AST 36 ALT 26 alk phos 4 3, albumin 2.4, troponin 0.05 7.2179 0.291, ammonia 39, lactic acid 8.3, ethanol undetectable urine benzodiazepines positive COVID-19 rapid PCR negative, urinalysis positive for leuk esterase and nitrates. Blood cultures positive for 2 out of 4 bottles gram-negative adryan Chest x-ray stable. CT head/cervical spine without acute finding. CTA chest and abdomen/pelvis w/ IV contrast obtained with findings concerning for right sided renal abscess. Empiric antibiotic coverage added with vancomycin. Transferred to [place] for further care. 03/11: Seen bedside, confused, tachycardic, asking if she can have some xanax. Not oriented, tachycardic, blood cultures notes. Transferred to ICU for worsening mental status, concern for seizure prior to arrival and impending potential septic shock. 03/12: This patient the ICU overnight that CODE BLUE was called. I discussion with ED attending (Dr. Hernández); patient went into A. fib and then subsequently PEA. She was intubated for airway protection, but there was some concern for as piration. Chest x-ray showed diffuse central predominant infiltrates. We will continue IV antibiotics, per ID. Per Dr. More, renal abscess under 5 cm code be managed with antibiotics alone. Will monitor blood cultures and urine cultures from [facility], however if causative organism is uncertain, simply abscess could be beneficial to guide therapy. Critical care time 30 minutes spent reviewing charts, reviewing labs, imaging, discussion with RN. 03/13: Afebrile. On vent with FiO2 80%, PEEP 5. Potassium 2.8 with morning, replaced. WBC 12.5. Antibiotics been changed to meropenem; further antibiotic recommendations per ID. Continue IV antibiotics for now and look to repeat CT/abdomen pelvis in the next day or so. Critical care time 30 minutes spent reviewing charts, reviewing labs, imaging, discussion with RN. 03/14: Afebrile. On vent with FiO2 50%, PEEP 5. Leukocytosis improving, WBC 12.4 today. ABG showed pH 7.47. We will continue to follow blood cultures; gram-negative rods in 1 of 3 bottles, likely E. coli. Continue meropenem, per ID. Patient not candidate for drainage, per IR. Will need repeat CT abdome n/pelvis if patient can tolerate. Critical care time 30 minutes spent reviewing charts, reviewing labs, imaging, discussion with RN. 03/15: Afebrile. On vent with FiO2 40%, PEEP 5. Will continue meropenem for renal mass with gram-negative bacteremia. Per Dr. More, mass not amenable to drainage at this time based on size. Will likely need repeat CT abdomen/pelvis when patient can tolerate. 03/16 Patient evaluated examined at bedside. She remained intubated and sedated. On pretty high levels of sedation with propofol fentanyl and Versed. Continue antibiotics likely going to need a long-term course. Continue ICU level of c are. Critical care time 30 minutes spent reviewing charts, reviewing labs, imaging, discussion with RN. Vitals/I&O Vitals/I&O: Vital Signs Date Time Temp Pulse Resp B/P (MAP) Pulse Ox O2 Delivery O2 Flow Rate FiO2 03/16/21 11:40 98 Ventilator 03/16/21 11:00 70 16 112/55 03/16/21 08:00 98.5 98.5 I & O 03/15/21 03/15/21 03/16/21 15:00 23:00 07:00 Intake Total 672 ml 1326.18 ml 1393.20 ml Output Total 500 ml 580 ml 850 ml Balance 172 ml 746.18 ml 543.20 ml Physical Exam Physical Exam: GENERAL: Intubated sedated HEENT: Normocephalic, atraumatic. Anicteric. Mild conjunctival irritation, ETT/OGT present, no conjunctival petechia NECK: Supple. No tenderness. LUNGS: Clear bilaterally. HEART: S1, S2, No murmurs. ABDOMEN: Soft, nondistended bowel sounds present no grimacing on deep palpation EXTREMITIES: Trace edema, no cyanosis. DERMATOLOGIC: Warm, dry. No generalized rash. NEUROLOGIC: Intubated, sedated, Babin in place Right upper extremity PICC line clean General: Other (Intubated on a ventilator, sedated) Heart: Regular rate Lungs: Clear Abdomen: Normal bowel sounds Extremities: No edema, Normal pulses Skin: No breakdown, No significant lesion Labs Labs: Laboratory Tests Test 03/15/21 12:32 03/15/21 18:01 03/16/21 00:28 03/16/21 06:10 Glucose (Fingerstick) 141 mg/dL (70-99) 134 mg/dL (70-99) 136 mg/dL (70-99) White Blood Count 11.1 x10^3/uL (4.0-11.0) Red Blood Count 3.29 x10^6/uL (3.50-5.40) Hemoglobin 10.0 g/dL (12.0-15.5) Hematocrit 30.2 % (36.0-47.0) Mean Corpuscular Volume 92 fL (79-100) Mean Corpuscular Hemoglobin 30 pg (25-35) Mean Corpuscular Hemoglobin Concent 33 g/dL (31-37) Red Cell Distribution Width 16.5 % (11.5-14.5) Platelet Count 251 x10^3/uL (140-400) Neutrophils (%) (Auto) 75 % (31-73) Lymphocytes (%) (Auto) 14 % (24-48) Monocytes (%) (Auto) 8 % (0-9) Eosinophils (%) (Auto) 2 % (0-3) Basophils (%) (Auto) 0 % (0-3) Neutrophils # (Auto) 8.3 x10^3/uL (1.8-7.7) Lymphocytes # (Auto) 1.6 x10^3/uL (1.0-4.8) Monocytes # (Auto) 0.9 x10^3/uL (0.0-1.1) Eosinophils # (Auto) 0.3 x10^3/uL (0.0-0.7) Basophils # (Auto) 0.0 x10^3/uL (0.0-0.2) Sodium Level 138 mmol/L (136-145) Potassium Level 3.8 mmol/L (3.5-5.1) Chloride Level 101 mmol/L (98-107) Carbon Dioxide Level 28 mmol/L (21-32) Anion Gap 9 (6-14) Blood Urea Nitrogen 7 mg/dL (7-20) Creatinine 0.5 mg/dL (0.6-1.0) Estimated GFR (Cockcroft-Gault) 126.3 Glucose Level 154 mg/dL (70-99) Calcium Level 7.8 mg/dL (8.5-10.1) Test 03/16/21 06:18 03/16/21 08:00 Glucose (Fingerstick) 170 mg/dL (70-99) O2 Saturation 95 % (92-99) Arterial Blood pH 7.46 (7.35-7.45) Arterial Blood pCO2 at Patient Temp 42 mmHg (35-46) Arterial Blood pO2 at Patient Temp 76 mmHg (65-108) Arterial Blood HCO3 29 mmol/L (21-28) Arterial Blood Base Excess 4 mmol/L (-3-3) FiO2 40 Comment Review of Relevant I have reviewed the following items celeste (where applicable) has been applied. Medications: Current Medications Medications (Trade) Dose Ordered Sig/Radha Route PRN Reason Start Time Stop Time Status Last Admin Dose Admin Multivitamins (Thera M Plus) 1 tab DAILY PO 03/16/21 09:00 03/16/21 08:48 Folic Acid (Folic Acid) 1 mg DAILY PO 03/16/21 09:00 03/16/21 08:39 Thiamine Mononitrate (Vitamin B-1) 100 mg DAILY PO 03/16/21 09:00 03/16/21 08:48 Justifications for Admission Other Justification CHON GARCIA MD Mar 16, 2021 12:15
--- NOTE | 2021-03-16 13:42 | PDOC ---
RADHA OSEI [employer] OPERATOR 03/16/21 1342: CARDIO Progress Notes Date and Time Date of Service 03/16/21 Time of Evaluation 1310 Subjective Subjective: Other (intubated ) Vitals Vitals Vital Signs Date Time Temp Pulse Resp B/P (MAP) Pulse Ox O2 Delivery O2 Flow Rate FiO2 03/16/21 13:00 92 26 208/98 96 Ventilator 03/16/21 12:40 10.0 03/16/21 12:00 99.3 99.3 Weight Weight [ ] Input and Output Intake and Output Intake and Output 03/16/21 07:00 Intake Total 3391.38 ml Output Total 1930 ml Balance 1461.38 ml IV Total 1761.38 ml Tube Feeding 1630 ml Output Urine Total 1930 ml Gastric Drainage Total 0 ml Laboratory Labs Laboratory Tests Test 03/15/21 18:01 03/16/21 00:28 03/16/21 06:10 03/16/21 06:18 Glucose (Fingerstick) 134 mg/dL (70-99) 136 mg/dL (70-99) 170 mg/dL (70-99) White Blood Count 11.1 x10^3/uL (4.0-11.0) Red Blood Count 3.29 x10^6/uL (3.50-5.40) Hemoglobin 10.0 g/dL (12.0-15.5) Hematocrit 30.2 % (36.0-47.0) Mean Corpuscular Volume 92 fL (79-100) Mean Corpuscular Hemoglobin 30 pg (25-35) Mean Corpuscular Hemoglobin Concent 33 g/dL (31-37) Red Cell Distribution Width 16.5 % (11.5-14.5) Platelet Count 251 x10^3/uL (140-400) Neutrophils (%) (Auto) 75 % (31-73) Lymphocytes (%) (Auto) 14 % (24-48) Monocytes (%) (Auto) 8 % (0-9) Eosinophils (%) (Auto) 2 % (0-3) Basophils (%) (Auto) 0 % (0-3) Neutrophils # (Auto) 8.3 x10^3/uL (1.8-7.7) Lymphocytes # (Auto) 1.6 x10^3/uL (1.0-4.8) Monocytes # (Auto) 0.9 x10^3/uL (0.0-1.1) Eosinophils # (Auto) 0.3 x10^3/uL (0.0-0.7) Basophils # (Auto) 0.0 x10^3/uL (0.0-0.2) Sodium Level 138 mmol/L (136-145) Potassium Level 3.8 mmol/L (3.5-5.1) Chloride Level 101 mmol/L (98-107) Carbon Dioxide Level 28 mmol/L (21-32) Anion Gap 9 (6-14) Blood Urea Nitrogen 7 mg/dL (7-20) Creatinine 0.5 mg/dL (0.6-1.0) Estimated GFR (Cockcroft-Gault) 126.3 Glucose Level 154 mg/dL (70-99) Calcium Level 7.8 mg/dL (8.5-10.1) Test 03/16/21 08:00 O2 Saturation 95 % (92-99) Arterial Blood pH 7.46 (7.35-7.45) Arterial Blood pCO2 at Patient Temp 42 mmHg (35-46) Arterial Blood pO2 at Patient Temp 76 mmHg (65-108) Arterial Blood HCO3 29 mmol/L (21-28) Arterial Blood Base Excess 4 mmol/L (-3-3) FiO2 40 Microbiology Micro Microbiology 03/11/21 Blood Culture - Final, Complete Physical Exam HEENT: Neck Supple W Full Motion Chest: Symmetric LUNGS: Other (mechanical vent ) Heart: RRR (SR) Abdomen: Other (soft ) Extremities: No Edema Neurology: other (sleeping ) Assessment Assessment 1. Leukocytosis, lactic acidosis, UTI, fevers, sepsis, GNR bacteremia. CT with concerns for right renal abscess 2. Acute respiratory failure, PEA arrest. 4 mins to ROSC. s/p intubation. No VT/VF 3. Sinus tachycardia; physiologic secondary to above. resolved 4. Mild troponin elevation; highest 0.29. Most probable type II, demand ischemia in setting of above. Echo with preserved LV systolic function 5. CAD; mild, non-obstructive per cath 2012 6. Acute on chronic systolic CHF, dilated cardiomyopathy; Echo 10/03 with LVEF 45%. 7. Hypertension; controlled 8. Hyperlipidemia; statin 9. DOMI; improved 10. Diabetes, II 11. Hypothyroidism 12. H/o ETOH abuse; recent discharged from rehab facility. neg upon admission 13. Hypokalemia, hypomagnesemia; replaced 14. Encephalopathy; combative towards staff. Haldol Recommendations Lasix IV x1 now ASA therapy Secondary prevention Ongoing treatment of sepsis as per ID Lung optimization as per pulmonary Supportive care Consider outpatient ischemic evaluation; Follows with BARRETT Mello Justicifation of Admission Dx: Justifications for Admission: Justification of Admission Dx: Yes DURAN BOLAÑOS MD 03/17/21 0935: CARDIO Progress Notes Assessment Assessment Patient seen and examined 03/16/2021. Agree with [employer]'s assessment and plan Continue vent management per pulm Telemetry did not show any significant arrhythmias Slight trop elevation prob demand ischemia 2D echo showed normal LVF Plan ischemic eval as outpatient RADHA OSEI APRN Mar 16, 2021 13:42 DURAN BOLAÑOS MD Mar 17, 2021 09:35
[2021-03-16] MEDS: HALOPERIDOL LACTATE 5 MG/ML VIAL. IVP SCH ×2 (14:20→22:25)
--- NOTE | 2021-03-16 16:07 | NUR ---
SS following up with discharge planning. SS reviewed pt chart and discussed with pt RN. Pt is currently on the vent at 40%. Pt on Fentanyl and Propofol. Pt on IV Meropenem. SS will continue to follow for discharge planning.
[2021-03-16] MEDS ORDERED: POTASSIUM BICARB 20 MEQ EFFERVESCENT TABLET. PEG ONE (17:30)
[2021-03-16] MEDS ORDERED: FUROSEMIDE 40 MG/4 ML VIAL. IVP ONE (17:30)
[2021-03-17] VITALS (24 sets, daily range): BP systolic 94–190; BP diastolic 47–99
[2021-03-17] MEDS: MEROPENEM 500 MG in IV NORMAL SALINE 50ML 50 ML IV SCH ×4 (00:05→17:13)
[2021-03-17] MEDS: PROPOFOL 100 ML IV PRN ×2 (01:38→08:45)
[2021-03-17] MEDS: IV NORMAL SALINE 1000ML BAG 1,000 ML IV SCH (05:49)
[2021-03-17] MEDS: HALOPERIDOL LACTATE 5 MG/ML VIAL. IVP SCH ×3 (05:50→22:11)
[2021-03-17] MEDS: HEPARIN for SUB-Q USE 5,000 UNIT/ML VIAL. SQ SCH ×3 (06:01→22:10)
[2021-03-17] MEDS: INSULIN LISPRO 300 UNITS/3 ML VIAL. SQ SCH ×4 (06:01→18:00)
[2021-03-17 06:08] LABS: CREATININE 0.3 mg/dL (0.6-1.0); GFR 227.7; POTASSIUM 3.3 mmol/L (3.5-5.1)
[2021-03-17 06:55] LABS: BASO % 0 % (0-3); EOS # 0.2 x10^3/uL (0.0-0.7); EOS % 3 % (0-3); HEMATOCRIT 28.6 % (36.0-47.0); HEMOGLOBIN 9.5 g/dL (12.0-15.5); LYMPH # 1.7 x10^3/uL (1.0-4.8); LYMPH % 20 % (24-48); MEAN CORPUSCULAR HEMOGLOBIN 31 pg (25-35); MEAN CORPUSCULAR HGB CONC 33 g/dL (31-37); MEAN CORPUSCULAR VOLUME 93 fL (79-100); MONO # 0.9 x10^3/uL (0.0-1.1); MONO % 10 % (0-9); NEUT # 5.7 x10^3/uL (1.8-7.7); NEUT % 67 % (31-73); PLATELET COUNT 290 x10^3/uL (140-400); RED BLOOD COUNT 3.08 x10^6/uL (3.50-5.40); RED CELL DISTRIBUTION WIDTH 16.8 % (11.5-14.5); WHITE BLOOD COUNT 8.6 x10^3/uL (4.0-11.0)
[2021-03-17] MEDS ORDERED: IV NORMAL SALINE 500ML BAG 500 ML IV PRN (07:45)
[2021-03-17] MEDS ORDERED: ATROPINE 0.5 MG/5 ML DISP.SYRINGE. IV PRN (07:45)
[2021-03-17] MEDS: PANTOPRAZOLE IV PUSH 40 MG VIAL. IVP SCH (08:15)
[2021-03-17] MEDS: FOLIC ACID 1 MG TABLET. PO SCH (08:15)
[2021-03-17] MEDS: MULTIVITAMIN with MINERAL TABLET. PO SCH (08:15)
[2021-03-17] MEDS: ASPIRIN CHEWABLE 81 MG TABLET. PO SCH (08:16)
[2021-03-17] MEDS: THIAMINE 100 MG TABLET. PO SCH (08:16)
[2021-03-17] MEDS: CARVEDILOL 12.5 MG TABLET. PO SCH (08:16)
[2021-03-17] MEDS: CETIRIZINE HCL 10 MG TABLET. PO SCH (08:16)
[2021-03-17] MEDS: GABAPENTIN 300 MG CAPSULE. PO SCH ×2 (08:16→21:00)
[2021-03-17] MEDS: NICOTINE 14MG PATCH. TD SCH (08:16)
[2021-03-17] MEDS: LACTOBACILLUS RHAMNOSUS GG 1 CAPSULE. PO SCH ×2 (08:16→21:00)
[2021-03-17] MEDS: CLOTRIMAZOLE 1% VAGINAL CREAM 45GM TUBE. VG SCH ×2 (08:17→21:01)
--- NOTE | 2021-03-17 08:22 | PDOC ---
Infectious Disease Note Subjective: Subjective Patient intubated Weaned off sedation Remains afebrile More alert this a.m. No acute issues per discussion with RN Vital Signs: Vital Signs Vital Signs Date Time Temp Pulse Resp B/P (MAP) Pulse Ox O2 Delivery O2 Flow Rate FiO2 03/17/21 08:16 70 119/64 03/17/21 07:57 99 Ventilator 03/17/21 06:00 14 03/17/21 04:00 98.0 98.0 03/16/21 12:40 10.0 Physical Exam: PHYSICAL EXAM GENERAL: Intubated sedated HEENT: Normocephalic, atraumatic. Anicteric. Mild conjunctival irritation, ETT/OGT present, no conjunctival petechia NECK: Supple. No tenderness. LUNGS: Clear bilaterally. HEART: S1, S2, No murmurs. ABDOMEN: Soft, nondistended bowel sounds present no grimacing on deep palpation EXTREMITIES: Trace edema, no cyanosis. DERMATOLOGIC: Warm, dry. No generalized rash. NEUROLOGIC: Intubated, sedated, Babin in place Right upper extremity PICC line clean Medications: Inpatient Meds: Medications reviewed. Labs: Lab Laboratory Tests Test 03/16/21 14:02 03/16/21 18:00 03/17/21 00:01 03/17/21 05:40 Glucose (Fingerstick) 170 mg/dL (70-99) 102 mg/dL (70-99) 130 mg/dL (70-99) White Blood Count 8.6 x10^3/uL (4.0-11.0) Red Blood Count 3.08 x10^6/uL (3.50-5.40) Hemoglobin 9.5 g/dL (12.0-15.5) Hematocrit 28.6 % (36.0-47.0) Mean Corpuscular Volume 93 fL (79-100) Mean Corpuscular Hemoglobin 31 pg (25-35) Mean Corpuscular Hemoglobin Concent 33 g/dL (31-37) Red Cell Distribution Width 16.8 % (11.5-14.5) Platelet Count 290 x10^3/uL (140-400) Neutrophils (%) (Auto) 67 % (31-73) Lymphocytes (%) (Auto) 20 % (24-48) Monocytes (%) (Auto) 10 % (0-9) Eosinophils (%) (Auto) 3 % (0-3) Basophils (%) (Auto) 0 % (0-3) Neutrophils # (Auto) 5.7 x10^3/uL (1.8-7.7) Lymphocytes # (Auto) 1.7 x10^3/uL (1.0-4.8) Monocytes # (Auto) 0.9 x10^3/uL (0.0-1.1) Eosinophils # (Auto) 0.2 x10^3/uL (0.0-0.7) Basophils # (Auto) 0.0 x10^3/uL (0.0-0.2) Sodium Level 137 mmol/L (136-145) Potassium Level 3.3 mmol/L (3.5-5.1) Chloride Level 102 mmol/L (98-107) Carbon Dioxide Level 32 mmol/L (21-32) Anion Gap 3 (6-14) Blood Urea Nitrogen 8 mg/dL (7-20) Creatinine 0.3 mg/dL (0.6-1.0) Estimated GFR (Cockcroft-Gault) 227.7 Glucose Level 167 mg/dL (70-99) Calcium Level 8.0 mg/dL (8.5-10.1) Test 03/17/21 05:46 Glucose (Fingerstick) 172 mg/dL (70-99) Objective: Assessment: Gram-negative bacteremia 4 out of 4 bottles present on admission at [facility],E coli pansensitive Blood culture positive here with gram-negative adryan Septic Shock from gram-negative sepsis Leukocytosis and lactic acidosis, source genitourinary. Urinary tract infection with renal mass, possible renal abscess, not a candidate for IR drainage. EtOH withdrawal Status post A. fib, idioventricular rhythm, asystole, status post cardiac arrest 03/04/2021 Acute hypoxic failure status post intubation 03/12/2021 Acute kidney injury. Febrile illness. Leukocytosis and bandemia. Hyponatremia. History of kidney stone. Encephalopathy, appears multifactorial including metabolic and anxiolytic medication ETOH dependence, recently discharged from rehab facility. Elevated troponin. Hypokalemia and hypomagnesemia. Cirrhosis History of hyperammonemia MARTINEZ suspect with the underlying benzodiazepine dependence Hypertension with hypertensive urgency diabetes mellitus 2 tobacco dependence History of vaginitis. ALLERGIES TO PENICILLIN WITH HIVES AND THROAT SWELLING. Tolerated meropenem test dose well on 03/11/2021 History of recurrent cardiac arrest recent 1 during last hospitalization at [facility] January 2021 Plan: Plan of Care Continue meropenem patient has tolerated it well Follow-up on E. coli THOMAS's from [facility] Off Levaquin and Zyvox Clotrimazole vaginal cream Monitor labs and cultures. Monitor blood cultures and urine cultures from [facility]. IR has evaluated the patient. The patient is not a candidate for drainage at this time. The patient may need transfer to tertiary care center with urology consultation if continues to worsen or does not improve Patient will need repeat CT abdomen and pelvis imaging. Critically ill. Prognosis guarded Discussed with nursing staff. QUINTON DANIELS MD Mar 17, 2021 08:22
[2021-03-17] MEDS: DEXMEDETOMIDINE 400 MCG in IV NORMAL SALINE 100ML 96 ML IV PRN ×3 (08:29→19:58)
[2021-03-17 09:06] LABS: BASE EXCESS ABG 9 mmol/L (-3-3); HCO3 ABG 33 mmol/L (21-28); PCO2 ABG 43 mmHg (35-46); PO2 ABG 63 mmHg (65-108); SAT O2 ABG 92 % (92-99)
[2021-03-17 09:07] LABS: FIO2 ABG 40
--- NOTE | 2021-03-17 09:14 | PDOC ---
PULMONARY PROGRESS NOTES DATE: 03/17/21 TIME: 09:14 Subjective Patient sedation was decreased, she appears to be,, follows commands Vitals Vital Signs Date Time Temp Pulse Resp B/P (MAP) Pulse Ox O2 Delivery O2 Flow Rate FiO2 03/17/21 09:00 64 18 160/85 100 Ventilator 03/17/21 08:00 99.2 99.2 03/16/21 12:40 10.0 HEENT: Other (nc at perrl nose clear orally intubate neck no lad no thyromegaly) Lungs: Clear Cardiovascular: S1, S2 Abdomen: Soft Neuro Exam: Alert Extremities: No Edema Skin: Warm Labs Laboratory Tests Test 03/15/21 12:32 03/15/21 18:01 03/16/21 00:28 03/16/21 06:10 Glucose (Fingerstick) 141 mg/dL (70-99) 134 mg/dL (70-99) 136 mg/dL (70-99) White Blood Count 11.1 x10^3/uL (4.0-11.0) Red Blood Count 3.29 x10^6/uL (3.50-5.40) Hemoglobin 10.0 g/dL (12.0-15.5) Hematocrit 30.2 % (36.0-47.0) Mean Corpuscular Volume 92 fL (79-100) Mean Corpuscular Hemoglobin 30 pg (25-35) Mean Corpuscular Hemoglobin Concent 33 g/dL (31-37) Red Cell Distribution Width 16.5 % (11.5-14.5) Platelet Count 251 x10^3/uL (140-400) Neutrophils (%) (Auto) 75 % (31-73) Lymphocytes (%) (Auto) 14 % (24-48) Monocytes (%) (Auto) 8 % (0-9) Eosinophils (%) (Auto) 2 % (0-3) Basophils (%) (Auto) 0 % (0-3) Neutrophils # (Auto) 8.3 x10^3/uL (1.8-7.7) Lymphocytes # (Auto) 1.6 x10^3/uL (1.0-4.8) Monocytes # (Auto) 0.9 x10^3/uL (0.0-1.1) Eosinophils # (Auto) 0.3 x10^3/uL (0.0-0.7) Basophils # (Auto) 0.0 x10^3/uL (0.0-0.2) Sodium Level 138 mmol/L (136-145) Potassium Level 3.8 mmol/L (3.5-5.1) Chloride Level 101 mmol/L (98-107) Carbon Dioxide Level 28 mmol/L (21-32) Anion Gap 9 (6-14) Blood Urea Nitrogen 7 mg/dL (7-20) Creatinine 0.5 mg/dL (0.6-1.0) Estimated GFR (Cockcroft-Gault) 126.3 Glucose Level 154 mg/dL (70-99) Calcium Level 7.8 mg/dL (8.5-10.1) Test 03/16/21 06:18 03/16/21 08:00 03/16/21 14:02 03/16/21 18:00 Glucose (Fingerstick) 170 mg/dL (70-99) 170 mg/dL (70-99) 102 mg/dL (70-99) O2 Saturation 95 % (92-99) Arterial Blood pH 7.46 (7.35-7.45) Arterial Blood pCO2 at Patient Temp 42 mmHg (35-46) Arterial Blood pO2 at Patient Temp 76 mmHg (65-108) Arterial Blood HCO3 29 mmol/L (21-28) Arterial Blood Base Excess 4 mmol/L (-3-3) FiO2 40 Test 03/17/21 00:01 03/17/21 05:40 03/17/21 05:46 03/17/21 08:00 Glucose (Fingerstick) 130 mg/dL (70-99) 172 mg/dL (70-99) White Blood Count 8.6 x10^3/uL (4.0-11.0) Red Blood Count 3.08 x10^6/uL (3.50-5.40) Hemoglobin 9.5 g/dL (12.0-15.5) Hematocrit 28.6 % (36.0-47.0) Mean Corpuscular Volume 93 fL (79-100) Mean Corpuscular Hemoglobin 31 pg (25-35) Mean Corpuscular Hemoglobin Concent 33 g/dL (31-37) Red Cell Distribution Width 16.8 % (11.5-14.5) Platelet Count 290 x10^3/uL (140-400) Neutrophils (%) (Auto) 67 % (31-73) Lymphocytes (%) (Auto) 20 % (24-48) Monocytes (%) (Auto) 10 % (0-9) Eosinophils (%) (Auto) 3 % (0-3) Basophils (%) (Auto) 0 % (0-3) Neutrophils # (Auto) 5.7 x10^3/uL (1.8-7.7) Lymphocytes # (Auto) 1.7 x10^3/uL (1.0-4.8) Monocytes # (Auto) 0.9 x10^3/uL (0.0-1.1) Eosinophils # (Auto) 0.2 x10^3/uL (0.0-0.7) Basophils # (Auto) 0.0 x10^3/uL (0.0-0.2) Sodium Level 137 mmol/L (136-145) Potassium Level 3.3 mmol/L (3.5-5.1) Chloride Level 102 mmol/L (98-107) Carbon Dioxide Level 32 mmol/L (21-32) Anion Gap 3 (6-14) Blood Urea Nitrogen 8 mg/dL (7-20) Creatinine 0.3 mg/dL (0.6-1.0) Estimated GFR (Cockcroft-Gault) 227.7 Glucose Level 167 mg/dL (70-99) Calcium Level 8.0 mg/dL (8.5-10.1) O2 Saturation 92 % (92-99) Arterial Blood pH 7.50 (7.35-7.45) Arterial Blood pCO2 at Patient Temp 43 mmHg (35-46) Arterial Blood pO2 at Patient Temp 63 mmHg (65-108) Arterial Blood HCO3 33 mmol/L (21-28) Arterial Blood Base Excess 9 mmol/L (-3-3) FiO2 40 Laboratory Tests Test 03/16/21 14:02 03/16/21 18:00 03/17/21 00:01 03/17/21 05:40 Glucose (Fingerstick) 170 mg/dL (70-99) 102 mg/dL (70-99) 130 mg/dL (70-99) White Blood Count 8.6 x10^3/uL (4.0-11.0) Red Blood Count 3.08 x10^6/uL (3.50-5.40) Hemoglobin 9.5 g/dL (12.0-15.5) Hematocrit 28.6 % (36.0-47.0) Mean Corpuscular Volume 93 fL (79-100) Mean Corpuscular Hemoglobin 31 pg (25-35) Mean Corpuscular Hemoglobin Concent 33 g/dL (31-37) Red Cell Distribution Width 16.8 % (11.5-14.5) Platelet Count 290 x10^3/uL (140-400) Neutrophils (%) (Auto) 67 % (31-73) Lymphocytes (%) (Auto) 20 % (24-48) Monocytes (%) (Auto) 10 % (0-9) Eosinophils (%) (Auto) 3 % (0-3) Basophils (%) (Auto) 0 % (0-3) Neutrophils # (Auto) 5.7 x10^3/uL (1.8-7.7) Lymphocytes # (Auto) 1.7 x10^3/uL (1.0-4.8) Monocytes # (Auto) 0.9 x10^3/uL (0.0-1.1) Eosinophils # (Auto) 0.2 x10^3/uL (0.0-0.7) Basophils # (Auto) 0.0 x10^3/uL (0.0-0.2) Sodium Level 137 mmol/L (136-145) Potassium Level 3.3 mmol/L (3.5-5.1) Chloride Level 102 mmol/L (98-107) Carbon Dioxide Level 32 mmol/L (21-32) Anion Gap 3 (6-14) Blood Urea Nitrogen 8 mg/dL (7-20) Creatinine 0.3 mg/dL (0.6-1.0) Estimated GFR (Cockcroft-Gault) 227.7 Glucose Level 167 mg/dL (70-99) Calcium Level 8.0 mg/dL (8.5-10.1) Test 03/17/21 05:46 03/17/21 08:00 Glucose (Fingerstick) 172 mg/dL (70-99) O2 Saturation 92 % (92-99) Arterial Blood pH 7.50 (7.35-7.45) Arterial Blood pCO2 at Patient Temp 43 mmHg (35-46) Arterial Blood pO2 at Patient Temp 63 mmHg (65-108) Arterial Blood HCO3 33 mmol/L (21-28) Arterial Blood Base Excess 9 mmol/L (-3-3) FiO2 40 Medications Active Scripts Medications Dose Route/Sig Max Daily Dose Days Date Category Gabapentin 600 Mg Tablet 300 Mg PO BID 03/10/21 Reported Atorvastatin Calcium 10 Mg Tablet 10 Mg PO HS 03/10/21 Reported Polar Freeze Gel (Menthol/Camphor) 120 Gm Gel..gram. 1 Vance TP TID 03/10/21 Reported Lantus (Insulin Glargine,Hum.rec.anlog) 100 Unit/1 Ml Vial 38 Unit SQ HS 03/10/21 Reported Omeprazole 20 Mg Capsule.dr 1 Cap PO DAILY 10/16/15 Reported Ibuprofen 400 Mg Tablet 400 Mg PO PRN PRN 10/16/15 Reported Mucinex (Guaifenesin) 600 Mg Tablet.er 1 Tab PO BID 10/16/15 Reported Flonase Allergy Relief (Fluticasone Propionate) 9.9 Ml [place].susp 2 Sprays NS DAILY 10/16/15 Reported Zyrtec (Cetirizine Hcl) 10 Mg Tablet 1 Tab PO DAILY 10/16/15 Reported Carvedilol (Carvedilol) 12.5 Mg Tablet 1 Tab PO BID 10/16/15 Reported Aspir 81 (Aspirin) 81 Mg Tablet.dr 1 Tab PO DAILY 10/16/15 Reported Alprazolam 0.25 Mg Tablet 1 Tab PO TID PRN PRN 10/16/15 Reported Comments cxr reviewed ett ok rll infilt worse lll infilt Impression . IMPRESSION: 1. Acute hypoxemic respiratory failure, multifactorial. 2. Septic shock. 3. Leukocytosis./Bacteremia 4. Urinary tract infection, possible renal abscess. 5. Acute kidney injury. 6. Hypokalemia. resolved 7. Metabolic toxic encephalopathy. 8. Alcohol dependence. Plan . Updated 03/17 Discussed with RN, will attempt trial May be able to extubate today, patient,, following commands Continue support with antibiotics DVT GI prophylaxis Updated 03/16 Discussed with RN and RT will attempt T-tube Hopeful to extubate today Continue antibiotics Nutritional support DVT GI prophylaxis updated 03/15 cont vent support setting reviewed will decrease sedation sbt when awake may need precedex is heavy alcohol user monitor for withdrawal hep sq protonix for prophylaxis fu final cxs Continue antibiotics per id elevate hob monitor potassium Discussed with RN and RT DANIELLE LOMAS MD Mar 17, 2021 09:14
[2021-03-17] MEDS ORDERED: DEXMEDETOMIDINE 400 MCG in IV NORMAL SALINE 100ML 96 ML IV PRN (10:20)
[2021-03-17] MEDS ORDERED: MIDAZOLAM 100mg/100ml NS BAG 100 ML IV PRN (10:21)
--- NOTE | 2021-03-17 11:53 | PDOC ---
RADHA OSEI HYPO DIPPER 03/17/21 1153: CARDIO Progress Notes Date and Time Date of Service 03/27/21 Time of Evaluation 1150 Subjective Subjective: Other (droswy, on Precedex) Vitals Vitals Vital Signs Date Time Temp Pulse Resp B/P (MAP) Pulse Ox O2 Delivery O2 Flow Rate FiO2 03/17/21 11:00 72 18 162/88 100 Ventilator 03/17/21 08:00 99.2 99.2 03/16/21 12:40 10.0 Weight Weight [ ] Input and Output Intake and Output Intake and Output 03/17/21 07:00 Intake Total 3830.40 ml Output Total 4700 ml Balance -869.60 ml IV Total 1784.40 ml Tube Feeding 1956 ml Other 90 ml Output Urine Total 4700 ml Gastric Drainage Total 0 ml Laboratory Labs Laboratory Tests Test 03/16/21 14:02 03/16/21 18:00 03/17/21 00:01 03/17/21 05:40 Glucose (Fingerstick) 170 mg/dL (70-99) 102 mg/dL (70-99) 130 mg/dL (70-99) White Blood Count 8.6 x10^3/uL (4.0-11.0) Red Blood Count 3.08 x10^6/uL (3.50-5.40) Hemoglobin 9.5 g/dL (12.0-15.5) Hematocrit 28.6 % (36.0-47.0) Mean Corpuscular Volume 93 fL (79-100) Mean Corpuscular Hemoglobin 31 pg (25-35) Mean Corpuscular Hemoglobin Concent 33 g/dL (31-37) Red Cell Distribution Width 16.8 % (11.5-14.5) Platelet Count 290 x10^3/uL (140-400) Neutrophils (%) (Auto) 67 % (31-73) Lymphocytes (%) (Auto) 20 % (24-48) Monocytes (%) (Auto) 10 % (0-9) Eosinophils (%) (Auto) 3 % (0-3) Basophils (%) (Auto) 0 % (0-3) Neutrophils # (Auto) 5.7 x10^3/uL (1.8-7.7) Lymphocytes # (Auto) 1.7 x10^3/uL (1.0-4.8) Monocytes # (Auto) 0.9 x10^3/uL (0.0-1.1) Eosinophils # (Auto) 0.2 x10^3/uL (0.0-0.7) Basophils # (Auto) 0.0 x10^3/uL (0.0-0.2) Sodium Level 137 mmol/L (136-145) Potassium Level 3.3 mmol/L (3.5-5.1) Chloride Level 102 mmol/L (98-107) Carbon Dioxide Level 32 mmol/L (21-32) Anion Gap 3 (6-14) Blood Urea Nitrogen 8 mg/dL (7-20) Creatinine 0.3 mg/dL (0.6-1.0) Estimated GFR (Cockcroft-Gault) 227.7 Glucose Level 167 mg/dL (70-99) Calcium Level 8.0 mg/dL (8.5-10.1) Test 03/17/21 05:46 03/17/21 08:00 Glucose (Fingerstick) 172 mg/dL (70-99) O2 Saturation 92 % (92-99) Arterial Blood pH 7.50 (7.35-7.45) Arterial Blood pCO2 at Patient Temp 43 mmHg (35-46) Arterial Blood pO2 at Patient Temp 63 mmHg (65-108) Arterial Blood HCO3 33 mmol/L (21-28) Arterial Blood Base Excess 9 mmol/L (-3-3) FiO2 40 Microbiology Micro Microbiology 03/11/21 Blood Culture - Final, Complete Physical Exam HEENT: Neck Supple W Full Motion Chest: Symmetric LUNGS: Other (diminished bases) Heart: RRR (SR) Abdomen: Other (soft ) Extremities: No Edema Neurology: confused, other (drowsy) Assessment Assessment 1. Leukocytosis, lactic acidosis, UTI, fevers, sepsis, GNR bacteremia. CT with concerns for right renal abscess 2. Acute respiratory failure, PEA arrest. 4 mins to ROSC. s/p intubation. No VT/VF. s/p self extubation this morning 3. Sinus tachycardia; physiologic secondary to above. resolved 4. Mild troponin elevation; highest 0.29. Most probable type II, demand ischemia in setting of above. Echo with preserved LV systolic function 5. CAD; mild, non-obstructive per cath 2012 6. Acute on chronic systolic CHF, dilated cardiomyopathy; Echo 10/03 with LVEF 45%. 7. Hypertension; controlled 8. Hyperlipidemia; statin 9. DOMI; improved 10. Diabetes, II 11. Hypothyroidism 12. H/o ETOH abuse; recent discharged from rehab facility. neg upon admission 13. Hypokalemia, hypomagnesemia; replaced 14. Encephalopathy; combative towards staff. Haldol 15. Hypokalemia Recommendations Replace potassium Secondary prevention as able Use metoprolol and enalapril IV while NPO Ongoing treatment of sepsis as per ID Lung optimization as per pulmonary Supportive care Consider outpatient ischemic evaluation; Follows with BARRETT Mello Justicifation of Admission Dx: Justifications for Admission: Justification of Admission Dx: Yes DURAN BOLAÑOS MD 03/18/21 1152: CARDIO Progress Notes Assessment Assessment Patient seen and examined 03/17/2021. Agree with FREELANCE ART DIRECTOR's assessment and plan Continue vent management per pulm Telemetry did not show any significant arrhythmias Slight trop elevation prob demand ischemia 2D echo showed normal LVF Plan ischemic eval as outpatient RADHA OSEI APRN Mar 17, 2021 11:53 DURAN BOLAÑOS MD Mar 18, 2021 11:52
--- NOTE | 2021-03-17 12:00 | NUR ---
1120 Pt self extubated, pt managed to get mitts around ET tube and pull out tube. Pt O2 sat 89%, placed on O2 to keep sats about 91%. Pt stable 93% on 4Lnc. Pt confused, yelling out "please don't kill me, you can't kill me!" Reassured and reoriented patient, vital signs stable. Notified Sisillo of extubation, no new orders received.
[2021-03-17] MEDS: hydrALAZINE 20 MG/ML VIAL. IVP PRN ×2 (14:24→17:12)
[2021-03-17] MEDS: diphenhydrAMINE 50 MG/ML VIAL IVP PRN (14:24)
[2021-03-17] MEDS ORDERED: POTASSIUM CHLORIDE 20MEQ 100 ML IV ONE (14:30)
[2021-03-17] MEDS ORDERED: METOPROLOL IV PUSH 5 MG/5 ML VIAL. IVP PRN (14:45)
--- NOTE | 2021-03-17 15:26 | NUR ---
SS following up with discharge planning. SS reviewed pt chart and discussed with pt RN. Pt self extubated today and is currently requiring oxygen at four liters nasal canula. Pt on Precedex and IV Meropenem. Pt agitated and confused. SS received request for LTACH referral. Pt is BPCI. SS contacted pt's sister, Lavell, , and provided explanation of BPCI and in network providers. LTACH discussed. Pt's sister reported that [facility], ; fax [phone], is closest to family. SS phoned and faxed referral to [facility]. SS will continue to follow for discharge planning.
--- NOTE | 2021-03-17 16:15 | PDOC ---
[employer] PROGRESS NOTE Date of Service DOS: DATE: 03/17/21 TIME: 16:14 Chief Complaint Chief Complaint A/P: Septic shock Renal abscess UTI (urinary tract infection) - Acute pyelonephritis Gram negative bacteremia - ID consulted Hypokalemia Hypomagnesemia Elevated troponin Acute encephalopathy - sepsis vs ETOH/benzo withdrawal. On CIWA and treating sepsis Lactic acidosis - sepsis vs seizure Acute kidney injury - vasomotor nephropathy from sepsis Hyponatremia - likely hypovolemic, will monitor ETOH dependence, recently discharged from rehab facility. Elevated troponin - unclear etiology, likely demand from sepsis. Cardiology consulted FEN - regular diet PPX - heparin FULL CODE Dispo - transfer to ICU History of Present Illness History of Present Illness Ms Barber is a 60-year-old female who presented via EMS to [facility] in [place] with report of altered mental status. Patient reportedly was found laying across the toilet resting her head in the shower by her son with altered mental state. Patient does have a history of alcohol abuse and recently was discharged from rehab after she was hospitalized at [facility]. EMS reports noting many empty beer cans found in the home. Patient does report drinking recently. Patient reports nausea and vomiting. Patient denies headache or neck pain. Patient reports she feels "ill ". Patient has received [employer] Covid vaccination. No recent sick contacts EKG Sinus tachycardia at 129bpm, occasional PVC, NO ST elevation, QRS 108ms, QT/QTc 326/479ms Initial labs NA 120 6K3.3, BUN 14, CR 1.3, glucose 199, magnesium 1.4, bilirubin 1.6, AST 36 ALT 26 alk phos 4 3, albumin 2.4, troponin 0.05 7.2179 0.291, ammonia 39, lactic acid 8.3, ethanol undetectable urine benzodiazepines positive COVID-19 rapid PCR negative, urinalysis positive for leuk esterase and nitrates. Blood cultures positive for 2 out of 4 bottles gram-negative adryan Chest x-ray stable. CT head/cervical spine without acute finding. CTA chest and abdomen/pelvis w/ IV contrast obtained with findings concerning for right sided renal abscess. Empiric antibiotic coverage added with vancomycin. Transferred to [facility] for further care. 03/11: Seen bedside, confused, tachycardic, asking if she can have some xanax. Not oriented, tachycardic, blood cultures notes. Transferred to ICU for worsening mental status, concern for seizure prior to arrival and impending potential septic shock. 03/12: This patient the ICU overnight that CODE BLUE was called. I discussion with ED attending (Dr. Hernández); patient went into A. fib and then subsequently PEA. She was intubated for airway protection, but there was some concern for as piration. Chest x-ray showed diffuse central predominant infiltrates. We will continue IV antibiotics, per ID. Per Dr. More, renal abscess under 5 cm code be managed with antibiotics alone. Will monitor blood cultures and urine cultures from [facility], however if causative organism is uncertain, simply abscess could be beneficial to guide therapy. Critical care time 30 minutes spent reviewing charts, reviewing labs, imaging, discussion with RN. 03/13: Afebrile. On vent with FiO2 80%, PEEP 5. Potassium 2.8 with morning, replaced. WBC 12.5. Antibiotics been changed to meropenem; further antibiotic recommendations per ID. Continue IV antibiotics for now and look to repeat CT/abdomen pelvis in the next day or so. Critical care time 30 minutes spent reviewing charts, reviewing labs, imaging, discussion with RN. 03/14: Afebrile. On vent with FiO2 50%, PEEP 5. Leukocytosis improving, WBC 12.4 today. ABG showed pH 7.47. We will continue to follow blood cultures; gram-negative rods in 1 of 3 bottles, likely E. coli. Continue meropenem, per ID. Patient not candidate for drainage, per IR. Will need repeat CT abdome n/pelvis if patient can tolerate. Critical care time 30 minutes spent reviewing charts, reviewing labs, imaging, discussion with RN. 03/15: Afebrile. On vent with FiO2 40%, PEEP 5. Will continue meropenem for renal mass with gram-negative bacteremia. Per Dr. More, mass not amenable to drainage at this time based on size. Will likely need repeat CT abdomen/pelvis when patient can tolerate. 03/16 Patient evaluated examined at bedside. She remained intubated and sedated. On pretty high levels of sedation with propofol fentanyl and Versed. Continue antibiotics likely going to need a long-term course. Continue ICU level of c are. Critical care time 30 minutes spent reviewing charts, reviewing labs, imaging, discussion with RN. 03/17 Patient evaluated and examined at bedside. Attempting to wean sedation for trial of extubation. Incidentally patient self extubated around noon today. She is quite confused but maintaining O2 sats. Ongoing hypertension and if patient passes bedside swallow can likely try some oral medications for blood pressure.Critical care time 30 minutes spent reviewing charts, reviewing labs, imaging, discussion with RN. Vitals/I&O Vitals/I&O: Vital Signs Date Time Temp Pulse Resp B/P (MAP) Pulse Ox O2 Delivery O2 Flow Rate FiO2 03/17/21 15:00 75 28 190/99 95 Nasal Cannula 4.0 03/17/21 13:00 98.2 98.2 I & O 03/16/21 03/16/21 03/17/21 15:00 23:00 07:00 Intake Total 758 ml 1548.3 ml 1524.10 ml Output Total 1850 ml 2500 ml 350 ml Balance -1092 ml -951.7 ml 1174.10 ml Physical Exam Physical Exam: GENERAL: Intubated sedated HEENT: Normocephalic, atraumatic. Anicteric. Mild conjunctival irritation, ET T/OGT present, no conjunctival petechia NECK: Supple. No tenderness. LUNGS: Clear bilaterally. HEART: S1, S2, No murmurs. ABDOMEN: Soft, nondistended bowel sounds present no grimacing on deep palpation EXTREMITIES: Trace edema, no cyanosis. DERMATOLOGIC: Warm, dry. No generalized rash. NEUROLOGIC: Intubated, sedated, Babin in place Right upper extremity PICC line clean General: Other (Intubated on a ventilator, sedated) Heart: Regular rate Lungs: Clear Abdomen: Normal bowel sounds Extremities: No edema, Normal pulses Skin: No breakdown, No significant lesion Labs Labs: Laboratory Tests Test 03/16/21 18:00 03/17/21 00:01 03/17/21 05:40 03/17/21 05:46 Glucose (Fingerstick) 102 mg/dL (70-99) 130 mg/dL (70-99) 172 mg/dL (70-99) White Blood Count 8.6 x10^3/uL (4.0-11.0) Red Blood Count 3.08 x10^6/uL (3.50-5.40) Hemoglobin 9.5 g/dL (12.0-15.5) Hematocrit 28.6 % (36.0-47.0) Mean Corpuscular Volume 93 fL (79-100) Mean Corpuscular Hemoglobin 31 pg (25-35) Mean Corpuscular Hemoglobin Concent 33 g/dL (31-37) Red Cell Distribution Width 16.8 % (11.5-14.5) Platelet Count 290 x10^3/uL (140-400) Neutrophils (%) (Auto) 67 % (31-73) Lymphocytes (%) (Auto) 20 % (24-48) Monocytes (%) (Auto) 10 % (0-9) Eosinophils (%) (Auto) 3 % (0-3) Basophils (%) (Auto) 0 % (0-3) Neutrophils # (Auto) 5.7 x10^3/uL (1.8-7.7) Lymphocytes # (Auto) 1.7 x10^3/uL (1.0-4.8) Monocytes # (Auto) 0.9 x10^3/uL (0.0-1.1) Eosinophils # (Auto) 0.2 x10^3/uL (0.0-0.7) Basophils # (Auto) 0.0 x10^3/uL (0.0-0.2) Sodium Level 137 mmol/L (136-145) Potassium Level 3.3 mmol/L (3.5-5.1) Chloride Level 102 mmol/L (98-107) Carbon Dioxide Level 32 mmol/L (21-32) Anion Gap 3 (6-14) Blood Urea Nitrogen 8 mg/dL (7-20) Creatinine 0.3 mg/dL (0.6-1.0) Estimated GFR (Cockcroft-Gault) 227.7 Glucose Level 167 mg/dL (70-99) Calcium Level 8.0 mg/dL (8.5-10.1) Magnesium Level 1.5 mg/dL (1.8-2.4) Test 03/17/21 08:00 O2 Saturation 92 % (92-99) Arterial Blood pH 7.50 (7.35-7.45) Arterial Blood pCO2 at Patient Temp 43 mmHg (35-46) Arterial Blood pO2 at Patient Temp 63 mmHg (65-108) Arterial Blood HCO3 33 mmol/L (21-28) Arterial Blood Base Excess 9 mmol/L (-3-3) FiO2 40 Comment Review of Relevant I have reviewed the following items celeste (where applicable) has been applied. Medications: Current Medications Medications (Trade) Dose Ordered Sig/Radha Route PRN Reason Start Time Stop Time Status Last Admin Dose Admin Furosemide (Lasix) 40 mg 1X ONCE IVP 03/16/21 17:30 03/16/21 17:31 DC 03/16/21 17:33 Potassium Bicarbonate (Potassium Effervescent Tablet) 20 meq 1X ONCE PEG 03/16/21 17:30 03/16/21 17:31 DC 03/16/21 17:32 Dexmedetomidine HCl 400 mcg/ Sodium Chloride 100 ml @ 3.49 mls/hr CONT PRN IV PER PROTOCOL 03/17/21 07:45 03/17/21 12:40 Potassium Chloride/Water 100 ml @ 100 mls/hr 1X ONCE IV 03/17/21 14:30 03/17/21 15:29 DC 03/17/21 15:37 Justifications for Admission Other Justification CHON GARCIA MD Mar 17, 2021 16:15
[2021-03-17] MEDS: ENALAPRILAT 1.25 MG/ML VIAL. IVP SCH (18:37)
[2021-03-17] MEDS ORDERED: MAGNESIUM SULFATE 2GM 50 ML IV ONE (19:30)
[2021-03-18] VITALS (16 sets, daily range): BP systolic 128–200; BP diastolic 66–98
[2021-03-18] MEDS: MEROPENEM 500 MG in IV NORMAL SALINE 50ML 50 ML IV SCH ×5 (00:27→23:29)
[2021-03-18] MEDS: ENALAPRILAT 1.25 MG/ML VIAL. IVP SCH ×5 (00:28→23:30)
[2021-03-18] MEDS: IV NORMAL SALINE 1000ML BAG 1,000 ML IV SCH ×2 (00:28→15:15)
[2021-03-18] MEDS: hydrALAZINE 20 MG/ML VIAL. IVP PRN ×3 (04:37→17:18)
[2021-03-18 05:04] LABS: BASO % 0 % (0-3); EOS # 0.1 x10^3/uL (0.0-0.7); EOS % 1 % (0-3); HEMATOCRIT 32.2 % (36.0-47.0); HEMOGLOBIN 10.6 g/dL (12.0-15.5); LYMPH # 1.8 x10^3/uL (1.0-4.8); LYMPH % 16 % (24-48); MEAN CORPUSCULAR HEMOGLOBIN 30 pg (25-35); MEAN CORPUSCULAR HGB CONC 33 g/dL (31-37); MEAN CORPUSCULAR VOLUME 92 fL (79-100); MONO # 1.1 x10^3/uL (0.0-1.1); MONO % 10 % (0-9); NEUT # 8.4 x10^3/uL (1.8-7.7); NEUT % 73 % (31-73); PLATELET COUNT 386 x10^3/uL (140-400); RED BLOOD COUNT 3.51 x10^6/uL (3.50-5.40); RED CELL DISTRIBUTION WIDTH 17.3 % (11.5-14.5); WHITE BLOOD COUNT 11.5 x10^3/uL (4.0-11.0)
--- NOTE | 2021-03-18 05:08 | NUR ---
Patient not tolerating Ativan IVP well. Precedex had been turned off for a few hours so patient was getting more restless but breathing in 20s, HR in 80s, BP 170s. Ativan IVP 2 mg administered and patient's respirations became more like snoring respirations, RR increased into 40s, HR in 100s, and BP 190s. Patient throwing more PVCs/PACs--labs sent to check electrolytes. Patient still easy to arouse and answers questions appropriately. Will continue to monitor.
--- NOTE | 2021-03-18 05:11 | NUR ---
This RN has reviewed and approves of SN charting.
[2021-03-18] MEDS: HEPARIN for SUB-Q USE 5,000 UNIT/ML VIAL. SQ SCH ×3 (05:23→22:02)
[2021-03-18 05:31] LABS: CALCIUM 8.5 mg/dL (8.5-10.1); CREATININE 0.5 mg/dL (0.6-1.0); GFR 126.3; MAGNESIUM 1.9 mg/dL (1.8-2.4); POTASSIUM 3.7 mmol/L (3.5-5.1)
[2021-03-18] MEDS: INSULIN LISPRO 300 UNITS/3 ML VIAL. SQ SCH ×5 (05:35→23:31)
[2021-03-18] MEDS: HALOPERIDOL LACTATE 5 MG/ML VIAL. IVP SCH ×3 (06:00→22:01)
[2021-03-18] MEDS: FOLIC ACID 1 MG TABLET. PO SCH (07:36)
[2021-03-18] MEDS: ASPIRIN CHEWABLE 81 MG TABLET. PO SCH (07:36)
[2021-03-18] MEDS: GABAPENTIN 300 MG CAPSULE. PO SCH ×2 (07:36→20:23)
[2021-03-18] MEDS: LACTOBACILLUS RHAMNOSUS GG 1 CAPSULE. PO SCH ×2 (07:36→20:23)
[2021-03-18] MEDS: CETIRIZINE HCL 10 MG TABLET. PO SCH (07:36)
[2021-03-18] MEDS: THIAMINE 100 MG TABLET. PO SCH (07:36)
[2021-03-18] MEDS: MULTIVITAMIN with MINERAL TABLET. PO SCH (07:36)
[2021-03-18] MEDS: NICOTINE 14MG PATCH. TD SCH (08:10)
[2021-03-18] MEDS: CLOTRIMAZOLE 1% VAGINAL CREAM 45GM TUBE. VG SCH (08:11)
[2021-03-18] MEDS: PANTOPRAZOLE IV PUSH 40 MG VIAL. IVP SCH (08:16)
--- NOTE | 2021-03-18 08:32 | PDOC ---
Infectious Disease Note Subjective: Subjective Patient self extubated yesterday. Sedated but arousable Blood pressure poorly controlled Discussed with nursing staff Vital Signs: Vital Signs Vital Signs Date Time Temp Pulse Resp B/P (MAP) Pulse Ox O2 Delivery O2 Flow Rate FiO2 03/18/21 08:10 111 222/117 03/18/21 06:00 40 Room Air 03/18/21 05:00 98.6 98.6 03/18/21 04:00 97 03/18/21 03:00 2.0 Physical Exam: PHYSICAL EXAM GENERAL: Sedated HEENT: Normocephalic, atraumatic. Anicteric. Mild conjunctival irritation, no conjunctival petechia NECK: Supple. LUNGS: Coarse breath sounds anteriorly HEART: S1, S2, No murmurs. ABDOMEN: Soft, nondistended bowel sounds present no grimacing on deep palpation EXTREMITIES: Trace edema, no cyanosis. DERMATOLOGIC: Warm, dry. No generalized rash. NEUROLOGIC: Sedated but arousable Babin in place Right upper extremity PICC line clean Medications: Inpatient Meds: Medications reviewed. Labs: Lab Laboratory Tests Test 03/17/21 18:32 03/18/21 00:32 03/18/21 04:55 Glucose (Fingerstick) 165 mg/dL (70-99) 141 mg/dL (70-99) White Blood Count 11.5 x10^3/uL (4.0-11.0) Red Blood Count 3.51 x10^6/uL (3.50-5.40) Hemoglobin 10.6 g/dL (12.0-15.5) Hematocrit 32.2 % (36.0-47.0) Mean Corpuscular Volume 92 fL (79-100) Mean Corpuscular Hemoglobin 30 pg (25-35) Mean Corpuscular Hemoglobin Concent 33 g/dL (31-37) Red Cell Distribution Width 17.3 % (11.5-14.5) Platelet Count 386 x10^3/uL (140-400) Neutrophils (%) (Auto) 73 % (31-73) Lymphocytes (%) (Auto) 16 % (24-48) Monocytes (%) (Auto) 10 % (0-9) Eosinophils (%) (Auto) 1 % (0-3) Basophils (%) (Auto) 0 % (0-3) Neutrophils # (Auto) 8.4 x10^3/uL (1.8-7.7) Lymphocytes # (Auto) 1.8 x10^3/uL (1.0-4.8) Monocytes # (Auto) 1.1 x10^3/uL (0.0-1.1) Eosinophils # (Auto) 0.1 x10^3/uL (0.0-0.7) Basophils # (Auto) 0.0 x10^3/uL (0.0-0.2) Sodium Level 137 mmol/L (136-145) Potassium Level 3.7 mmol/L (3.5-5.1) Chloride Level 101 mmol/L (98-107) Carbon Dioxide Level 28 mmol/L (21-32) Anion Gap 8 (6-14) Blood Urea Nitrogen 10 mg/dL (7-20) Creatinine 0.5 mg/dL (0.6-1.0) Estimated GFR (Cockcroft-Gault) 126.3 Glucose Level 133 mg/dL (70-99) Calcium Level 8.5 mg/dL (8.5-10.1) Magnesium Level 1.9 mg/dL (1.8-2.4) Objective: Assessment: Gram-negative bacteremia 4 out of 4 bottles present on admission at [facility],E coli Blood culture positive here with E. coli Septic Shock from gram-negative sepsis Leukocytosis and lactic acidosis, source genitourinary. Urinary tract infection with renal mass, possible renal abscess, not a candidate for IR drainage. EtOH withdrawal Status post A. fib, idioventricular rhythm, asystole, status post cardiac arrest 03/04/2021 Acute hypoxic failure status post intubation 03/12/2021 Acute kidney injury. Febrile illness. Leukocytosis and bandemia. Hyponatremia. History of kidney stone. Encephalopathy, appears multifactorial including metabolic and anxiolytic medication ETOH dependence, recently discharged from rehab facility. Elevated troponin. Hypokalemia and hypomagnesemia. Cirrhosis History of hyperammonemia MARTINEZ suspect with the underlying benzodiazepine dependence Hypertension with hypertensive urgency diabetes mellitus 2 tobacco dependence History of vaginitis. ALLERGIES TO PENICILLIN WITH HIVES AND THROAT SWELLING. Tolerated meropenem test dose well on 03/11/2021 History of recurrent cardiac arrest recent 1 during last hospitalization at [facility] January 2021 Plan: Plan of Care Continue meropenem Clotrimazole vaginal cream Monitor labs and cultures. Monitor blood cultures and urine cultures from [facility]. IR has evaluated the patient. The patient is not a candidate for drainage at this time. Will need repeat imaging for follow-up of renal abscess Maintain aspiration precaution Overall prognosis poor Discussed with nursing staff. QUINTON DANIELS MD Mar 18, 2021 08:32
--- NOTE | 2021-03-18 09:05 | PDOC ---
PULMONARY PROGRESS NOTES DATE: 03/18/21 TIME: 09:05 Subjective Patient sedation was decreased, she appears to be,, follows commands Vitals Vital Signs Date Time Temp Pulse Resp B/P (MAP) Pulse Ox O2 Delivery O2 Flow Rate FiO2 03/18/21 08:10 111 222/117 03/18/21 08:00 Room Air 03/18/21 08:00 39 03/18/21 05:00 98.6 98.6 03/18/21 04:00 97 03/18/21 03:00 2.0 HEENT: Other (nc at perrl nose clear orally intubate neck no lad no thyromegaly) Lungs: Clear Cardiovascular: S1, S2 Abdomen: Soft Neuro Exam: Alert Extremities: No Edema Skin: Warm Labs Laboratory Tests Test 03/16/21 14:02 03/16/21 18:00 03/17/21 00:01 03/17/21 05:40 Glucose (Fingerstick) 170 mg/dL (70-99) 102 mg/dL (70-99) 130 mg/dL (70-99) White Blood Count 8.6 x10^3/uL (4.0-11.0) Red Blood Count 3.08 x10^6/uL (3.50-5.40) Hemoglobin 9.5 g/dL (12.0-15.5) Hematocrit 28.6 % (36.0-47.0) Mean Corpuscular Volume 93 fL (79-100) Mean Corpuscular Hemoglobin 31 pg (25-35) Mean Corpuscular Hemoglobin Concent 33 g/dL (31-37) Red Cell Distribution Width 16.8 % (11.5-14.5) Platelet Count 290 x10^3/uL (140-400) Neutrophils (%) (Auto) 67 % (31-73) Lymphocytes (%) (Auto) 20 % (24-48) Monocytes (%) (Auto) 10 % (0-9) Eosinophils (%) (Auto) 3 % (0-3) Basophils (%) (Auto) 0 % (0-3) Neutrophils # (Auto) 5.7 x10^3/uL (1.8-7.7) Lymphocytes # (Auto) 1.7 x10^3/uL (1.0-4.8) Monocytes # (Auto) 0.9 x10^3/uL (0.0-1.1) Eosinophils # (Auto) 0.2 x10^3/uL (0.0-0.7) Basophils # (Auto) 0.0 x10^3/uL (0.0-0.2) Sodium Level 137 mmol/L (136-145) Potassium Level 3.3 mmol/L (3.5-5.1) Chloride Level 102 mmol/L (98-107) Carbon Dioxide Level 32 mmol/L (21-32) Anion Gap 3 (6-14) Blood Urea Nitrogen 8 mg/dL (7-20) Creatinine 0.3 mg/dL (0.6-1.0) Estimated GFR (Cockcroft-Gault) 227.7 Glucose Level 167 mg/dL (70-99) Calcium Level 8.0 mg/dL (8.5-10.1) Magnesium Level 1.5 mg/dL (1.8-2.4) Test 03/17/21 05:46 03/17/21 08:00 03/17/21 18:32 03/18/21 00:32 Glucose (Fingerstick) 172 mg/dL (70-99) 165 mg/dL (70-99) 141 mg/dL (70-99) O2 Saturation 92 % (92-99) Arterial Blood pH 7.50 (7.35-7.45) Arterial Blood pCO2 at Patient Temp 43 mmHg (35-46) Arterial Blood pO2 at Patient Temp 63 mmHg (65-108) Arterial Blood HCO3 33 mmol/L (21-28) Arterial Blood Base Excess 9 mmol/L (-3-3) FiO2 40 Test 03/18/21 04:55 White Blood Count 11.5 x10^3/uL (4.0-11.0) Red Blood Count 3.51 x10^6/uL (3.50-5.40) Hemoglobin 10.6 g/dL (12.0-15.5) Hematocrit 32.2 % (36.0-47.0) Mean Corpuscular Volume 92 fL (79-100) Mean Corpuscular Hemoglobin 30 pg (25-35) Mean Corpuscular Hemoglobin Concent 33 g/dL (31-37) Red Cell Distribution Width 17.3 % (11.5-14.5) Platelet Count 386 x10^3/uL (140-400) Neutrophils (%) (Auto) 73 % (31-73) Lymphocytes (%) (Auto) 16 % (24-48) Monocytes (%) (Auto) 10 % (0-9) Eosinophils (%) (Auto) 1 % (0-3) Basophils (%) (Auto) 0 % (0-3) Neutrophils # (Auto) 8.4 x10^3/uL (1.8-7.7) Lymphocytes # (Auto) 1.8 x10^3/uL (1.0-4.8) Monocytes # (Auto) 1.1 x10^3/uL (0.0-1.1) Eosinophils # (Auto) 0.1 x10^3/uL (0.0-0.7) Basophils # (Auto) 0.0 x10^3/uL (0.0-0.2) Sodium Level 137 mmol/L (136-145) Potassium Level 3.7 mmol/L (3.5-5.1) Chloride Level 101 mmol/L (98-107) Carbon Dioxide Level 28 mmol/L (21-32) Anion Gap 8 (6-14) Blood Urea Nitrogen 10 mg/dL (7-20) Creatinine 0.5 mg/dL (0.6-1.0) Estimated GFR (Cockcroft-Gault) 126.3 Glucose Level 133 mg/dL (70-99) Calcium Level 8.5 mg/dL (8.5-10.1) Magnesium Level 1.9 mg/dL (1.8-2.4) Laboratory Tests Test 03/17/21 18:32 03/18/21 00:32 03/18/21 04:55 Glucose (Fingerstick) 165 mg/dL (70-99) 141 mg/dL (70-99) White Blood Count 11.5 x10^3/uL (4.0-11.0) Red Blood Count 3.51 x10^6/uL (3.50-5.40) Hemoglobin 10.6 g/dL (12.0-15.5) Hematocrit 32.2 % (36.0-47.0) Mean Corpuscular Volume 92 fL (79-100) Mean Corpuscular Hemoglobin 30 pg (25-35) Mean Corpuscular Hemoglobin Concent 33 g/dL (31-37) Red Cell Distribution Width 17.3 % (11.5-14.5) Platelet Count 386 x10^3/uL (140-400) Neutrophils (%) (Auto) 73 % (31-73) Lymphocytes (%) (Auto) 16 % (24-48) Monocytes (%) (Auto) 10 % (0-9) Eosinophils (%) (Auto) 1 % (0-3) Basophils (%) (Auto) 0 % (0-3) Neutrophils # (Auto) 8.4 x10^3/uL (1.8-7.7) Lymphocytes # (Auto) 1.8 x10^3/uL (1.0-4.8) Monocytes # (Auto) 1.1 x10^3/uL (0.0-1.1) Eosinophils # (Auto) 0.1 x10^3/uL (0.0-0.7) Basophils # (Auto) 0.0 x10^3/uL (0.0-0.2) Sodium Level 137 mmol/L (136-145) Potassium Level 3.7 mmol/L (3.5-5.1) Chloride Level 101 mmol/L (98-107) Carbon Dioxide Level 28 mmol/L (21-32) Anion Gap 8 (6-14) Blood Urea Nitrogen 10 mg/dL (7-20) Creatinine 0.5 mg/dL (0.6-1.0) Estimated GFR (Cockcroft-Gault) 126.3 Glucose Level 133 mg/dL (70-99) Calcium Level 8.5 mg/dL (8.5-10.1) Magnesium Level 1.9 mg/dL (1.8-2.4) Medications Active Scripts Medications Dose Route/Sig Max Daily Dose Days Date Category Gabapentin 600 Mg Tablet 300 Mg PO BID 03/10/21 Reported Atorvastatin Calcium 10 Mg Tablet 10 Mg PO HS 03/10/21 Reported Polar Freeze Gel (Menthol/Camphor) 120 Gm Gel..gram. 1 Vance TP TID 03/10/21 Reported Lantus (Insulin Glargine,Hum.rec.anlog) 100 Unit/1 Ml Vial 38 Unit SQ HS 03/10/21 Reported Omeprazole 20 Mg Capsule.dr 1 Cap PO DAILY 10/16/15 Reported Ibuprofen 400 Mg Tablet 400 Mg PO PRN PRN 10/16/15 Reported Mucinex (Guaifenesin) 600 Mg Tablet.er 1 Tab PO BID 10/16/15 Reported Flonase Allergy Relief (Fluticasone Propionate) 9.9 Ml [place].susp 2 Sprays NS DAILY 10/16/15 Reported Zyrtec (Cetirizine Hcl) 10 Mg Tablet 1 Tab PO DAILY 10/16/15 Reported Carvedilol (Carvedilol) 12.5 Mg Tablet 1 Tab PO BID 10/16/15 Reported Aspir 81 (Aspirin) 81 Mg Tablet.dr 1 Tab PO DAILY 10/16/15 Reported Alprazolam 0.25 Mg Tablet 1 Tab PO TID PRN PRN 10/16/15 Reported Comments cxr reviewed ett ok rll infilt worse lll infilt Impression . IMPRESSION: 1. Acute hypoxemic respiratory failure, multifactorial. 2. Septic shock. 3. Leukocytosis./Bacteremia 4. Urinary tract infection, possible renal abscess. 5. Acute kidney injury. 6. Hypokalemia. resolved 7. Metabolic toxic encephalopathy. 8. Alcohol dependence. Plan . Updated 03/17 Discussed with RN, will attempt trial May be able to extubate today, patient,, following commands Continue support with antibiotics DVT GI prophylaxis Updated 03/16 Discussed with RN and RT will attempt T-tube Hopeful to extubate today Continue antibiotics Nutritional support DVT GI prophylaxis updated 03/15 cont vent support setting reviewed will decrease sedation sbt when awake may need precedex is heavy alcohol user monitor for withdrawal hep sq protonix for prophylaxis fu final cxs Continue antibiotics per id elevate hob monitor potassium Discussed with RN and RT DANIELLE LOMAS MD Mar 18, 2021 09:05
--- NOTE | 2021-03-18 09:05 | NUR ---
SS following up with discharge planning. SS reviewed pt chart and discussed with pt RN. Pt is currently on room air. Pt off Precedex. Pt on IV Meropenem. PT/OT/ST ordered. Pt no longer meets LTACH requirements. Probable need for shelter unit. SS will continue to follow for discharge planning.
[2021-03-18] MEDS ORDERED: cloNIDine TTS-2 1 PATCH PATCH TD SCH ×2 (09:15)
--- NOTE | 2021-03-18 11:04 | PDOC ---
[employer] PROGRESS NOTE Date of Service DOS: DATE: 03/18/21 TIME: 11:02 Chief Complaint Chief Complaint A/P: Septic shock Renal abscess UTI (urinary tract infection) - Acute pyelonephritis Gram negative bacteremia - ID consulted Hypokalemia Hypomagnesemia Elevated troponin Acute encephalopathy - sepsis vs ETOH/benzo withdrawal. On CIWA and treating sepsis Lactic acidosis - sepsis vs seizure Acute kidney injury - vasomotor nephropathy from sepsis Hyponatremia - likely hypovolemic, will monitor ETOH dependence, recently discharged from rehab facility. Elevated troponin - unclear etiology, likely demand from sepsis. Cardiology consulted FEN - regular diet PPX - heparin FULL CODE Dispo - transfer to ICU History of Present Illness History of Present Illness Ms Barber is a 60-year-old female who presented via EMS to [facility] in [place] with report of altered mental status. Patient reportedly was found laying across the toilet resting her head in the shower by her son with altered mental state. Patient does have a history of alcohol abuse and recently was discharged from rehab after she was hospitalized at [facility]. EMS reports noting many empty beer cans found in the home. Patient does report drinking recently. Patient reports nausea and vomiting. Patient denies headache or neck pain. Patient reports she feels "ill ". Patient has received [employer] Covid vaccination. No recent sick contacts EKG Sinus tachycardia at 129bpm, occasional PVC, NO ST elevation, QRS 108ms, QT/QTc 326/479ms Initial labs NA 120 6K3.3, BUN 14, CR 1.3, glucose 199, magnesium 1.4, bilirubin 1.6, AST 36 ALT 26 alk phos 4 3, albumin 2.4, troponin 0.05 7.2179 0.291, ammonia 39, lactic acid 8.3, ethanol undetectable urine benzodiazepines positive COVID-19 rapid PCR negative, urinalysis positive for leuk esterase and nitrates. Blood cultures positive for 2 out of 4 bottles gram-negative adryan Chest x-ray stable. CT head/cervical spine without acute finding. CTA chest and abdomen/pelvis w/ IV contrast obtained with findings concerning for right sided renal abscess. Empiric antibiotic coverage added with vancomycin. Transferred to [facility] for further care. 03/11: Seen bedside, confused, tachycardic, asking if she can have some xanax. Not oriented, tachycardic, blood cultures notes. Transferred to ICU for worsening mental status, concern for seizure prior to arrival and impending potential septic shock. 03/12: This patient the ICU overnight that CODE BLUE was called. I discussion with ED attending (Dr. Hernández); patient went into A. fib and then subsequently PEA. She was intubated for airway protection, but there was some concern for as piration. Chest x-ray showed diffuse central predominant infiltrates. We will continue IV antibiotics, per ID. Per Dr. More, renal abscess under 5 cm code be managed with antibiotics alone. Will monitor blood cultures and urine cultures from [facility], however if causative organism is uncertain, simply abscess could be beneficial to guide therapy. Critical care time 30 minutes spent reviewing charts, reviewing labs, imaging, discussion with RN. 03/13: Afebrile. On vent with FiO2 80%, PEEP 5. Potassium 2.8 with morning, replaced. WBC 12.5. Antibiotics been changed to meropenem; further antibiotic recommendations per ID. Continue IV antibiotics for now and look to repeat CT/abdomen pelvis in the next day or so. Critical care time 30 minutes spent reviewing charts, reviewing labs, imaging, discussion with RN. 03/14: Afebrile. On vent with FiO2 50%, PEEP 5. Leukocytosis improving, WBC 12.4 today. ABG showed pH 7.47. We will continue to follow blood cultures; gram-negative rods in 1 of 3 bottles, likely E. coli. Continue meropenem, per ID. Patient not candidate for drainage, per IR. Will need repeat CT abdome n/pelvis if patient can tolerate. Critical care time 30 minutes spent reviewing charts, reviewing labs, imaging, discussion with RN. 03/15: Afebrile. On vent with FiO2 40%, PEEP 5. Will continue meropenem for renal mass with gram-negative bacteremia. Per Dr. More, mass not amenable to drainage at this time based on size. Will likely need repeat CT abdomen/pelvis when patient can tolerate. 03/16 Patient evaluated examined at bedside. She remained intubated and sedated. On pretty high levels of sedation with propofol fentanyl and Versed. Continue antibiotics likely going to need a long-term course. Continue ICU level of c are. Critical care time 30 minutes spent reviewing charts, reviewing labs, imaging, discussion with RN. 03/17 Patient evaluated and examined at bedside. Attempting to wean sedation for trial of extubation. Incidentally patient self extubated around noon today. She is quite confused but maintaining O2 sats. Ongoing hypertension and if patient passes bedside swallow can likely try some oral medications for blood pressure.Critical care time 30 minutes spent reviewing charts, reviewing labs, imaging, discussion with RN. 03/18 Patient evaluated examined at bedside. Doing well on room air no major complaints this morning. Still pretty confused. Okay to transfer out of ICU. Cardiology ordered clonidine patches that definitely appear to be controlling patient's blood pressure. Continue antibiotics. Guessing patient is going to need 6-week course. Plan of care discussed with bedside RN. Vitals/I&O Vitals/I&O: Vital Signs Date Time Temp Pulse Resp B/P (MAP) Pulse Ox O2 Delivery O2 Flow Rate FiO2 03/18/21 10:00 101 32 146/66 (92) Room Air 03/18/21 05:00 98.6 98.6 03/18/21 04:00 97 03/18/21 03:00 2.0 I & O 03/17/21 03/17/21 03/18/21 15:00 23:00 07:00 Intake Total 130 ml 170 ml 722 ml Output Total 610 ml 1725 ml 595 ml Balance -480 ml -1555 ml 127 ml Physical Exam Physical Exam: GENERAL: Sedated HEENT: Normocephalic, atraumatic. Anicteric. Mild conjunctival irritation, no conjunctival petechia NECK: Supple. LUNGS: Coarse breath sounds anteriorly HEART: S1, S2, No murmurs. ABDOMEN: Soft, nondistended bowel sounds present no grimacing on deep palpation EXTREMITIES: Trace edema, no cyanosis. DERMATOLOGIC: Warm, dry. No generalized rash. NEUROLOGIC: Sedated but arousable Babin in place Right upper extremity PICC line clean General: Other (Intubated on a ventilator, sedated) Heart: Regular rate Lungs: Clear Abdomen: Normal bowel sounds Extremities: No edema, Normal pulses Skin: No breakdown, No significant lesion Labs Labs: Laboratory Tests Test 03/17/21 18:32 03/18/21 00:32 03/18/21 04:55 Glucose (Fingerstick) 165 mg/dL (70-99) 141 mg/dL (70-99) White Blood Count 11.5 x10^3/uL (4.0-11.0) Red Blood Count 3.51 x10^6/uL (3.50-5.40) Hemoglobin 10.6 g/dL (12.0-15.5) Hematocrit 32.2 % (36.0-47.0) Mean Corpuscular Volume 92 fL (79-100) Mean Corpuscular Hemoglobin 30 pg (25-35) Mean Corpuscular Hemoglobin Concent 33 g/dL (31-37) Red Cell Distribution Width 17.3 % (11.5-14.5) Platelet Count 386 x10^3/uL (140-400) Neutrophils (%) (Auto) 73 % (31-73) Lymphocytes (%) (Auto) 16 % (24-48) Monocytes (%) (Auto) 10 % (0-9) Eosinophils (%) (Auto) 1 % (0-3) Basophils (%) (Auto) 0 % (0-3) Neutrophils # (Auto) 8.4 x10^3/uL (1.8-7.7) Lymphocytes # (Auto) 1.8 x10^3/uL (1.0-4.8) Monocytes # (Auto) 1.1 x10^3/uL (0.0-1.1) Eosinophils # (Auto) 0.1 x10^3/uL (0.0-0.7) Basophils # (Auto) 0.0 x10^3/uL (0.0-0.2) Sodium Level 137 mmol/L (136-145) Potassium Level 3.7 mmol/L (3.5-5.1) Chloride Level 101 mmol/L (98-107) Carbon Dioxide Level 28 mmol/L (21-32) Anion Gap 8 (6-14) Blood Urea Nitrogen 10 mg/dL (7-20) Creatinine 0.5 mg/dL (0.6-1.0) Estimated GFR (Cockcroft-Gault) 126.3 Glucose Level 133 mg/dL (70-99) Calcium Level 8.5 mg/dL (8.5-10.1) Magnesium Level 1.9 mg/dL (1.8-2.4) Comment Review of Relevant I have reviewed the following items celeste (where applicable) has been applied. Medications: Current Medications Medications (Trade) Dose Ordered Sig/Radha Route PRN Reason Start Time Stop Time Status Last Admin Dose Admin Potassium Chloride/Water 100 ml @ 100 mls/hr 1X ONCE IV 03/17/21 14:30 03/17/21 15:29 DC 03/17/21 15:37 Metoprolol Tartrate (Lopressor Vial) 5 mg PRN Q6HRS PRN IVP HYPERTENSION 03/17/21 14:45 03/18/21 09:07 DC 03/18/21 08:10 Enalaprilat (Vasotec Inj) 1.25 mg Q6HRS IVP 03/17/21 18:00 03/18/21 05:24 Magnesium Sulfate 50 ml @ 25 mls/hr 1X ONCE IV 03/17/21 19:30 03/17/21 21:29 DC 03/17/21 19:58 Clonidine HCl (Catapres Tts-2) 1 patch WEEKLY TD 03/18/21 09:15 03/18/21 09:34 Justifications for Admission Other Justification CHON GRACIA MD Mar 18, 2021 11:04
[2021-03-18] MEDS ORDERED: METOPROLOL IV PUSH 5 MG/5 ML VIAL. IVP SCH (12:00)
--- NOTE | 2021-03-18 12:03 | PDOC ---
RADHA OSEI OVERLAY OPERATOR 03/18/21 1202: CARDIO Progress Notes Date and Time Date of Service 03/18/21 Time of Evaluation 1200 Subjective Subjective: Other (up in chair, father at bedside ) Vitals Vitals Vital Signs Date Time Temp Pulse Resp B/P (MAP) Pulse Ox O2 Delivery O2 Flow Rate FiO2 03/18/21 11:00 96 32 128/68 (88) 94 Room Air 03/18/21 05:00 98.6 98.6 03/18/21 03:00 2.0 Weight Weight [ ] Input and Output Intake and Output Intake and Output 03/18/21 07:00 Intake Total 1022 ml Output Total 2930 ml Balance -1908 ml IV Total 802 ml Tube Feeding 220 ml Output Urine Total 2930 ml Gastric Drainage Total 0 ml Laboratory Labs Laboratory Tests Test 03/17/21 18:32 03/18/21 00:32 03/18/21 04:55 Glucose (Fingerstick) 165 mg/dL (70-99) 141 mg/dL (70-99) White Blood Count 11.5 x10^3/uL (4.0-11.0) Red Blood Count 3.51 x10^6/uL (3.50-5.40) Hemoglobin 10.6 g/dL (12.0-15.5) Hematocrit 32.2 % (36.0-47.0) Mean Corpuscular Volume 92 fL (79-100) Mean Corpuscular Hemoglobin 30 pg (25-35) Mean Corpuscular Hemoglobin Concent 33 g/dL (31-37) Red Cell Distribution Width 17.3 % (11.5-14.5) Platelet Count 386 x10^3/uL (140-400) Neutrophils (%) (Auto) 73 % (31-73) Lymphocytes (%) (Auto) 16 % (24-48) Monocytes (%) (Auto) 10 % (0-9) Eosinophils (%) (Auto) 1 % (0-3) Basophils (%) (Auto) 0 % (0-3) Neutrophils # (Auto) 8.4 x10^3/uL (1.8-7.7) Lymphocytes # (Auto) 1.8 x10^3/uL (1.0-4.8) Monocytes # (Auto) 1.1 x10^3/uL (0.0-1.1) Eosinophils # (Auto) 0.1 x10^3/uL (0.0-0.7) Basophils # (Auto) 0.0 x10^3/uL (0.0-0.2) Sodium Level 137 mmol/L (136-145) Potassium Level 3.7 mmol/L (3.5-5.1) Chloride Level 101 mmol/L (98-107) Carbon Dioxide Level 28 mmol/L (21-32) Anion Gap 8 (6-14) Blood Urea Nitrogen 10 mg/dL (7-20) Creatinine 0.5 mg/dL (0.6-1.0) Estimated GFR (Cockcroft-Gault) 126.3 Glucose Level 133 mg/dL (70-99) Calcium Level 8.5 mg/dL (8.5-10.1) Magnesium Level 1.9 mg/dL (1.8-2.4) Microbiology Micro Microbiology 03/11/21 Blood Culture - Final, Complete 03/11/21 Antimicrobic Susceptibility - Final, Complete Physical Exam HEENT: Neck Supple W Full Motion Chest: Symmetric LUNGS: Other (diminished bases) Heart: RRR (SR/ST) Abdomen: Other (soft ) Extremities: No Edema Neurology: confused, other (drowsy) Assessment Assessment 1. Leukocytosis, lactic acidosis, UTI, fevers, sepsis, GNR bacteremia. CT with concerns for right renal abscess 2. Acute respiratory failure, PEA arrest. 4 mins to ROSC. s/p intubation. No VT /VF. s/p self extubation 03/17 3. Sinus tachycardia; physiologic secondary to above. resolved 4. Mild troponin elevation; highest 0.29. Most probable type II, demand ischemia in setting of above. Echo with preserved LV systolic function 5. CAD; mild, non-obstructive per cath 2012 6. Acute on chronic systolic CHF, dilated cardiomyopathy; Echo 10/03 with LVEF 45%. 7. Hypertension; labile 8. Hyperlipidemia; statin 9. DOMI; improved 10. Diabetes, II 11. Hypothyroidism 12. H/o ETOH abuse; recent discharged from rehab facility. neg upon admission 13. Hypokalemia, hypomagnesemia; replaced 14. Encephalopathy; remains confused Recommendations IV Metoprolol, enalapril, hydralazine while NPO. Convert to PO when able to take oral Add clonidine patch as BP remains labile Secondary prevention as able Ongoing treatment of sepsis as per ID Lung optimization as per pulmonary Supportive care Consider outpatient ischemic evaluation; Follows with BARRETT Mello Justicifation of Admission Dx: Justifications for Admission: Justification of Admission Dx: Yes DURAN BOLAÑOS MD 03/18/212023: CARDIO Progress Notes Assessment Assessment Patient seen and examined. Agree with TRAIN CLERK's assessment and plan s/p self extubation doing well - pulm following Telemetry did not show any significant arrhythmias Slight trop elevation prob demand ischemia 2D echo showed normal LVF Plan ischemic eval as outpatient RADHA OSEI APRN Mar 18, 2021 12:02 DURAN BOLAÑOS MD Mar 18, 2021 20:24
[2021-03-18] MEDS: diphenhydrAMINE 50 MG/ML VIAL IVP PRN (16:27)
[2021-03-19 03:00] VITALS: BP 189/99
[2021-03-19] MEDS: HALOPERIDOL LACTATE 5 MG/ML VIAL. IVP SCH ×3 (05:19→21:36)
[2021-03-19] MEDS: HEPARIN for SUB-Q USE 5,000 UNIT/ML VIAL. SQ SCH ×3 (05:27→21:28)
[2021-03-19] MEDS: MEROPENEM 500 MG in IV NORMAL SALINE 50ML 50 ML IV SCH ×4 (05:38→23:04)
[2021-03-19] MEDS: INSULIN LISPRO 300 UNITS/3 ML VIAL. SQ SCH ×4 (06:00→21:00)
[2021-03-19] MEDS: ENALAPRILAT 1.25 MG/ML VIAL. IVP SCH ×2 (06:03→12:21)
[2021-03-19 07:00] VITALS: BP 189/99
[2021-03-19] MEDS: ASPIRIN CHEWABLE 81 MG TABLET. PO SCH (08:00)
[2021-03-19] MEDS: NICOTINE 14MG PATCH. TD SCH (09:00)
[2021-03-19] MEDS: THIAMINE 100 MG TABLET. PO SCH (09:00)
[2021-03-19] MEDS: LACTOBACILLUS RHAMNOSUS GG 1 CAPSULE. PO SCH ×3 (09:00→20:41)
[2021-03-19] MEDS: GABAPENTIN 300 MG CAPSULE. PO SCH ×3 (09:00→20:34)
[2021-03-19] MEDS: MULTIVITAMIN with MINERAL TABLET. PO SCH (09:00)
[2021-03-19] MEDS: FOLIC ACID 1 MG TABLET. PO SCH (09:00)
[2021-03-19] MEDS: CETIRIZINE HCL 10 MG TABLET. PO SCH (09:00)
--- NOTE | 2021-03-19 09:17 | PDOC ---
Infectious Disease Note Subjective: Subjective Patient transferred out of ICU F/U Renal abscess and bacteremia T-max 99.7 Vital Signs: Vital Signs Vital Signs Date Time Temp Pulse Resp B/P (MAP) Pulse Ox O2 Delivery O2 Flow Rate FiO2 03/19/21 07:00 98.5 107 18 189/99 (129) 96 98.5 03/19/21 03:00 Room Air Physical Exam: PHYSICAL EXAM GENERAL: Sedated HEENT: Normocephalic, atraumatic. Anicteric. no conjunctival petechia NECK: Supple. LUNGS: Coarse breath sounds anteriorly HEART: S1, S2, No murmurs. ABDOMEN: Soft, nondistended bowel sounds present no grimacing on deep palpation EXTREMITIES: Trace edema, no cyanosis. DERMATOLOGIC: Warm, dry. No generalized rash. NEUROLOGIC: Sedated but arousable Babin in place Right upper extremity PICC line clean Medications: Inpatient Meds: Medications reviewed. Labs: Lab Laboratory Tests Test 03/18/21 16:31 03/18/21 23:49 Glucose (Fingerstick) 151 mg/dL (70-99) 147 mg/dL (70-99) Objective: Assessment: Gram-negative bacteremia 4 out of 4 bottles present on admission at [facility],E coli Blood culture positive here with E. coli Septic Shock from gram-negative sepsis Leukocytosis and lactic acidosis, source genitourinary. Urinary tract infection with renal mass, possible renal abscess, not a candidate for IR drainage. EtOH withdrawal Status post A. fib, idioventricular rhythm, asystole, status post cardiac arrest 03/04/2021 Acute hypoxic failure status post intubation 03/12/2021 Acute kidney injury. Febrile illness. Leukocytosis and bandemia. Hyponatremia. History of kidney stone. Encephalopathy, appears multifactorial including metabolic and anxiolytic medication ETOH dependence, recently discharged from rehab facility. Elevated troponin. Hypokalemia and hypomagnesemia. Cirrhosis History of hyperammonemia MARTINEZ suspect with the underlying benzodiazepine dependence Hypertension with hypertensive urgency diabetes mellitus 2 tobacco dependence History of vaginitis. ALLERGIES TO PENICILLIN WITH HIVES AND THROAT SWELLING. Tolerated meropenem test dose well on 03/11/2021 History of recurrent cardiac arrest recent 1 during last hospitalization at [facility] January 2021 Plan: Plan of Care Continue meropenem Clotrimazole vaginal cream Monitor labs and cultures. IR has evaluated the patient. The patient is not a candidate for drainage of RENAL abcess at this time. Will need repeat imaging for follow-up of renal abscess Maintain aspiration precaution Oral and mouth care Overall prognosis poor Discussed with nursing staff. QUINTON DANIELS MD Mar 19, 2021 09:17
--- NOTE | 2021-03-19 09:19 | PDOC ---
PULMONARY PROGRESS NOTES DATE: 03/19/21 TIME: 09:19 Subjective Patient less sedated, more awake, following instructions. Not short of breath. Vitals Vital Signs Date Time Temp Pulse Resp B/P (MAP) Pulse Ox O2 Delivery O2 Flow Rate FiO2 03/19/21 07:00 98.5 107 18 189/99 (129) 96 98.5 03/19/21 03:00 Room Air ROS: No Nausea, No Chest Pain, No Abdominal Pain, No Increase Cough HEENT: Other (nc at perrl nose clear orally intubate neck no lad no thyromegaly) Lungs: Clear Cardiovascular: S1, S2 Abdomen: Soft Neuro Exam: Alert Extremities: No Edema Skin: Warm Labs Laboratory Tests Test 03/17/21 18:32 03/18/21 00:32 03/18/21 04:55 03/18/21 16:31 Glucose (Fingerstick) 165 mg/dL (70-99) 141 mg/dL (70-99) 151 mg/dL (70-99) White Blood Count 11.5 x10^3/uL (4.0-11.0) Red Blood Count 3.51 x10^6/uL (3.50-5.40) Hemoglobin 10.6 g/dL (12.0-15.5) Hematocrit 32.2 % (36.0-47.0) Mean Corpuscular Volume 92 fL (79-100) Mean Corpuscular Hemoglobin 30 pg (25-35) Mean Corpuscular Hemoglobin Concent 33 g/dL (31-37) Red Cell Distribution Width 17.3 % (11.5-14.5) Platelet Count 386 x10^3/uL (140-400) Neutrophils (%) (Auto) 73 % (31-73) Lymphocytes (%) (Auto) 16 % (24-48) Monocytes (%) (Auto) 10 % (0-9) Eosinophils (%) (Auto) 1 % (0-3) Basophils (%) (Auto) 0 % (0-3) Neutrophils # (Auto) 8.4 x10^3/uL (1.8-7.7) Lymphocytes # (Auto) 1.8 x10^3/uL (1.0-4.8) Monocytes # (Auto) 1.1 x10^3/uL (0.0-1.1) Eosinophils # (Auto) 0.1 x10^3/uL (0.0-0.7) Basophils # (Auto) 0.0 x10^3/uL (0.0-0.2) Sodium Level 137 mmol/L (136-145) Potassium Level 3.7 mmol/L (3.5-5.1) Chloride Level 101 mmol/L (98-107) Carbon Dioxide Level 28 mmol/L (21-32) Anion Gap 8 (6-14) Blood Urea Nitrogen 10 mg/dL (7-20) Creatinine 0.5 mg/dL (0.6-1.0) Estimated GFR (Cockcroft-Gault) 126.3 Glucose Level 133 mg/dL (70-99) Calcium Level 8.5 mg/dL (8.5-10.1) Magnesium Level 1.9 mg/dL (1.8-2.4) Test 03/18/21 23:49 Glucose (Fingerstick) 147 mg/dL (70-99) Laboratory Tests Test 03/18/21 16:31 03/18/21 23:49 Glucose (Fingerstick) 151 mg/dL (70-99) 147 mg/dL (70-99) Medications Active Scripts Medications Dose Route/Sig Max Daily Dose Days Date Category Gabapentin 600 Mg Tablet 300 Mg PO BID 03/10/21 Reported Atorvastatin Calcium 10 Mg Tablet 10 Mg PO HS 03/10/21 Reported Polar Freeze Gel (Menthol/Camphor) 120 Gm Gel..gram. 1 Vance TP TID 03/10/21 Reported Lantus (Insulin Glargine,Hum.rec.anlog) 100 Unit/1 Ml Vial 38 Unit SQ HS 03/10/21 Reported Omeprazole 20 Mg Capsule.dr 1 Cap PO DAILY 10/16/15 Reported Ibuprofen 400 Mg Tablet 400 Mg PO PRN PRN 10/16/15 Reported Mucinex (Guaifenesin) 600 Mg Tablet.er 1 Tab PO BID 10/16/15 Reported Flonase Allergy Relief (Fluticasone Propionate) 9.9 Ml [place].susp 2 Sprays NS DAILY 10/16/15 Reported Zyrtec (Cetirizine Hcl) 10 Mg Tablet 1 Tab PO DAILY 10/16/15 Reported Carvedilol (Carvedilol) 12.5 Mg Tablet 1 Tab PO BID 10/16/15 Reported Aspir 81 (Aspirin) 81 Mg Tablet. 1 Tab PO DAILY 10/16/15 Reported Alprazolam 0.25 Mg Tablet 1 Tab PO TID PRN PRN 10/16/15 Reported Comments cxr reviewed ett ok rll infilt worse lll infilt Impression . IMPRESSION: 1. Acute hypoxemic respiratory failure, multifactorial. 2. Septic shock. 3. Leukocytosis./Bacteremia 4. Urinary tract infection, possible renal abscess. 5. Acute kidney injury. 6. Hypokalemia. resolved 7. Metabolic toxic encephalopathy. 8. Alcohol dependence. Plan . Updated 03/19 Patient improving, discussed with case management Discussed with father at the bedside Possible home soon Updated 03/17 Discussed with RN, will attempt trial May be able to extubate today, patient,, following commands Continue support with antibiotics DVT GI prophylaxis Updated 03/16 Discussed with RN and RT will attempt T-tube Hopeful to extubate today Continue antibiotics Nutritional support DVT GI prophylaxis updated 03/15 cont vent support setting reviewed will decrease sedation sbt when awake may need precedex is heavy alcohol user monitor for withdrawal hep sq protonix for prophylaxis fu final cxs Continue antibiotics per id elevate hob monitor potassium Discussed with RN and RT DANIELLE LOMAS MD Mar 19, 2021 09:19
[2021-03-19] MEDS: PANTOPRAZOLE IV PUSH 40 MG VIAL. IVP SCH (09:34)
[2021-03-19] MEDS: IV NORMAL SALINE 1000ML BAG 1,000 ML IV SCH (10:44)
[2021-03-19] MEDS: hydrALAZINE 20 MG/ML VIAL. IVP PRN ×2 (10:47→21:36)
[2021-03-19 11:00] VITALS: BP 192/113
--- NOTE | 2021-03-19 11:53 | PDOC ---
RADHA OSEI ELIS 03/19/21 1153: CARDIO Progress Notes Date and Time Date of Service 03/19/21 Time of Evaluation 1150 Subjective Subjective: No Chest Pain, No shortness of breath, Other Vitals Vitals Vital Signs Date Time Temp Pulse Resp B/P (MAP) Pulse Ox O2 Delivery O2 Flow Rate FiO2 03/19/21 11:00 99.2 103 18 192/113 (139) 94 99.2 03/19/21 03:00 Room Air Weight Weight [ ] Input and Output Intake and Output Intake and Output 03/19/21 07:00 Intake Total 50 ml Output Total 2650 ml Balance -2600 ml Intake Oral 0 ml IV Total 50 ml Output Urine Total 2650 ml Laboratory Labs Laboratory Tests Test 03/18/21 16:31 03/18/21 23:49 Glucose (Fingerstick) 151 mg/dL (70-99) 147 mg/dL (70-99) Microbiology Micro Microbiology 03/11/21 Blood Culture - Final, Complete 03/11/21 Antimicrobic Susceptibility - Final, Complete Physical Exam HEENT: Neck Supple W Full Motion Chest: Symmetric LUNGS: Other (diminished bases) Heart: RRR (SR/ST) Abdomen: Other (soft ) Extremities: No Edema Neurology: alert, follow commands, confused Assessment Assessment 1. Leukocytosis, lactic acidosis, UTI, fevers, sepsis, GNR bacteremia. CT with concerns for right renal abscess 2. Acute respiratory failure, PEA arrest. 4 mins to ROSC. s/p intubation. No VT/VF. s/p self extubation 03/17 3. Sinus tachycardia; physiologic secondary to above. better 4. Mild troponin elevation; highest 0.29. Most probable type II, demand ischemia in setting of above. Echo with preserved LV systolic function 5. CAD; mild, non-obstructive per cath 2012 6. Acute on chronic systolic CHF, dilated cardiomyopathy; Echo 10/03 with LVEF 45%. 7. Hypertension; labile 8. Hyperlipidemia; statin 9. DOMI; improved 10. Diabetes, II 11. Hypothyroidism 12. H/o ETOH abuse; recent discharged from rehab facility. neg upon admission 13. Hypokalemia, hypomagnesemia; replaced 14. Encephalopathy; remains confused Recommendations Able to take PO. Will convert meds to oral Allergy to metoprolol Hydralazine IV PRN Secondary prevention as able ASA Ongoing treatment of sepsis as per ID Lung optimization as per pulmonary Supportive care Consider outpatient ischemic evaluation; Follows with BARRETT Mello Justicifation of Admission Dx: Justifications for Admission: Justification of Admission Dx: Yes DURAN BOLAÑOS MD 03/20/21 0838: CARDIO Progress Notes Assessment Assessment Patient seen and examined 03/19/2021. Agree with ELECTRONICS TEST ENGINEER's assessment and plan Telemetry did not show any significant arrhythmias Slight trop elevation prob demand ischemia 2D echo showed normal LVF Plan ischemic eval as outpatient RADHA OSEI APRN Mar 19, 2021 11:53 DURAN BOLAÑOS MD Mar 20, 2021 08:38
--- NOTE | 2021-03-19 12:57 | PDOC ---
[employer] PROGRESS NOTE Date of Service DOS: DATE: 03/19/21 TIME: 12:55 Chief Complaint Chief Complaint A/P: Septic shock Renal abscess UTI (urinary tract infection) - Acute pyelonephritis Gram negative bacteremia - ID consulted Hypokalemia Hypomagnesemia Elevated troponin Acute encephalopathy - sepsis vs ETOH/benzo withdrawal. On CIWA and treating sepsis Lactic acidosis - sepsis vs seizure Acute kidney injury - vasomotor nephropathy from sepsis Hyponatremia - likely hypovolemic, will monitor ETOH dependence, recently discharged from rehab facility. Elevated troponin - unclear etiology, likely demand from sepsis. Cardiology consulted FEN - regular diet PPX - heparin FULL CODE Dispo - transfer to ICU History of Present Illness History of Present Illness Ms Barber is a 60-year-old female who presented via EMS to [facility] in [place] with report of altered mental status. Patient reportedly was found laying across the toilet resting her head in the shower by her son with altered mental state. Patient does have a history of alcohol abuse and recently was discharged from rehab after she was hospitalized at [facility]. EMS reports noting many empty beer cans found in the home. Patient does report drinking recently. Patient reports nausea and vomiting. Patient denies headache or neck pain. Patient reports she feels "ill ". Patient has received [employer] Covid vaccination. No recent sick contacts EKG Sinus tachycardia at 129bpm, occasional PVC, NO ST elevation, QRS 108ms, QT/QTc 326/479ms Initial labs NA 120 6K3.3, BUN 14, CR 1.3, glucose 199, magnesium 1.4, bilirubin 1.6, AST 36 ALT 26 alk phos 4 3, albumin 2.4, troponin 0.05 7.2179 0.291, ammonia 39, lactic acid 8.3, ethanol undetectable urine benzodiazepines positive COVID-19 rapid PCR negative, urinalysis positive for leuk esterase and nitrates. Blood cultures positive for 2 out of 4 bottles gram-negative adryan Chest x-ray stable. CT head/cervical spine without acute finding. CTA chest and abdomen/pelvis w/ IV contrast obtained with findings concerning for right sided renal abscess. Empiric antibiotic coverage added with vancomycin. Transferred to [facility] for further care. 03/11: Seen bedside, confused, tachycardic, asking if she can have some xanax. Not oriented, tachycardic, blood cultures notes. Transferred to ICU for worsening mental status, concern for seizure prior to arrival and impending potential septic shock. 03/12: This patient the ICU overnight that CODE BLUE was called. I discussion with ED attending (Dr. Hernández); patient went into A. fib and then subsequently PEA. She was intubated for airway protection, but there was some concern for as piration. Chest x-ray showed diffuse central predominant infiltrates. We will continue IV antibiotics, per ID. Per Dr. More, renal abscess under 5 cm code be managed with antibiotics alone. Will monitor blood cultures and urine cultures from [facility], however if causative organism is uncertain, simply abscess could be beneficial to guide therapy. Critical care time 30 minutes spent reviewing charts, reviewing labs, imaging, discussion with RN. 03/13: Afebrile. On vent with FiO2 80%, PEEP 5. Potassium 2.8 with morning, replaced. WBC 12.5. Antibiotics been changed to meropenem; further antibiotic recommendations per ID. Continue IV antibiotics for now and look to repeat CT/abdomen pelvis in the next day or so. Critical care time 30 minutes spent reviewing charts, reviewing labs, imaging, discussion with RN. 03/14: Afebrile. On vent with FiO2 50%, PEEP 5. Leukocytosis improving, WBC 12.4 today. ABG showed pH 7.47. We will continue to follow blood cultures; gram-negative rods in 1 of 3 bottles, likely E. coli. Continue meropenem, per ID. Patient not candidate for drainage, per IR. Will need repeat CT abdome n/pelvis if patient can tolerate. Critical care time 30 minutes spent reviewing charts, reviewing labs, imaging, discussion with RN. 03/15: Afebrile. On vent with FiO2 40%, PEEP 5. Will continue meropenem for renal mass with gram-negative bacteremia. Per Dr. More, mass not amenable to drainage at this time based on size. Will likely need repeat CT abdomen/pelvis when patient can tolerate. 03/16 Patient evaluated examined at bedside. She remained intubated and sedated. On pretty high levels of sedation with propofol fentanyl and Versed. Continue antibiotics likely going to need a long-term course. Continue ICU level of c are. Critical care time 30 minutes spent reviewing charts, reviewing labs, imaging, discussion with RN. 03/17 Patient evaluated and examined at bedside. Attempting to wean sedation for trial of extubation. Incidentally patient self extubated around noon today. She is quite confused but maintaining O2 sats. Ongoing hypertension and if patient passes bedside swallow can likely try some oral medications for blood pressure.Critical care time 30 minutes spent reviewing charts, reviewing labs, imaging, discussion with RN. 03/18 Patient evaluated examined at bedside. Doing well on room air no major complaints this morning. Still pretty confused. Okay to transfer out of ICU. Cardiology ordered clonidine patches that definitely appear to be controlling patient's blood pressure. Continue antibiotics. Guessing patient is going to need 6-week course. Plan of care discussed with bedside RN. 03/19/2021 Patient transferred ICU to medical floor today. Patient passed bedside swallow is able to tolerate p.o. medications. We will continue with IV antibiotics per ID recommendations. Patient sitting up in bed and alert. Patient's chart, lab s, images were reviewed and discussed with RN Vitals/I&O Vitals/I&O: Vital Signs Date Time Temp Pulse Resp B/P (MAP) Pulse Ox O2 Delivery O2 Flow Rate FiO2 03/19/21 12:21 103 192/113 03/19/21 11:00 99.2 18 94 99.2 03/19/21 03:00 Room Air I & O 03/18/21 03/18/21 03/19/21 15:00 23:00 07:00 Intake Total 0 ml 50 ml Output Total 250 ml 600 ml 1800 ml Balance -250 ml -600 ml -1750 ml Physical Exam Physical Exam: GENERAL: Sedated HEENT: Normocephalic, atraumatic. Anicteric. no conjunctival petechia NECK: Supple. LUNGS: Coarse breath sounds anteriorly HEART: S1, S2, No murmurs. ABDOMEN: Soft, nondistended bowel sounds present no grimacing on deep palpation EXTREMITIES: Trace edema, no cyanosis. DERMATOLOGIC: Warm, dry. No generalized rash. NEUROLOGIC: Sedated but arousable Babin in place Right upper extremity PICC line clean General: Other (Intubated on a ventilator, sedated) Heart: Regular rate Lungs: Clear Abdomen: Normal bowel sounds Extremities: No edema, Normal pulses Skin: No breakdown, No significant lesion Labs Labs: Laboratory Tests Test 03/18/21 16:31 03/18/21 23:49 Glucose (Fingerstick) 151 mg/dL (70-99) 147 mg/dL (70-99) Comment Review of Relevant I have reviewed the following items celeste (where applicable) has been applied. Justifications for Admission Other Justification RAVINDER RAINES MD Mar 19, 2021 12:57
[2021-03-19 15:00] VITALS: BP 186/91
[2021-03-19 19:38] VITALS: BP 181/89
--- NOTE | 2021-03-19 19:51 | NUR ---
Pt was not eating so Humalog was not given at 1800.
[2021-03-19] MEDS: ACETAMINOPHEN 325 MG TABLET. PO PRN (20:20)
--- NOTE | 2021-03-19 20:37 | NUR ---
Evaluated by ST today. Ok to take PO. Upon administering HS pills, Neurontin, Culturelle as well as Clonidine and Tylenol, patient spit pills out. Continues to be confused. Resting in bed. Bed alarm on.
[2021-03-19 22:32] VITALS: BP 167/79
[2021-03-20 02:43] VITALS: BP 174/81
[2021-03-20] MEDS: IV NORMAL SALINE 1000ML BAG 1,000 ML IV SCH (02:56)
[2021-03-20] MEDS: MEROPENEM 500 MG in IV NORMAL SALINE 50ML 50 ML IV SCH ×2 (05:05→11:37)
[2021-03-20] MEDS: HALOPERIDOL LACTATE 5 MG/ML VIAL. IVP SCH (05:07)
[2021-03-20] MEDS: hydrALAZINE 20 MG/ML VIAL. IVP PRN (05:16)
[2021-03-20] MEDS: HEPARIN for SUB-Q USE 5,000 UNIT/ML VIAL. SQ SCH (06:07)
[2021-03-20 07:15] VITALS: BP 171/78
[2021-03-20] MEDS: INSULIN LISPRO 300 UNITS/3 ML VIAL. SQ SCH ×2 (07:30→11:42)
[2021-03-20] MEDS ORDERED: PANTOPRAZOLE 40 MG TABLET.DR. PO SCH (07:30)
--- NOTE | 2021-03-20 08:33 | PDOC ---
PULMONARY PROGRESS NOTES DATE: 03/20/21 TIME: 08:33 Subjective Patient less sedated, more awake, following instructions. Not short of breath. Vitals Vital Signs Date Time Temp Pulse Resp B/P (MAP) Pulse Ox O2 Delivery O2 Flow Rate FiO2 03/20/21 07:15 97.7 104 20 171/78 (109) 93 Room Air 97.7 ROS: No Nausea, No Chest Pain, No Abdominal Pain, No Increase Cough HEENT: Other (nc at perrl nose clear orally intubate neck no lad no thyromegaly) Lungs: Clear Cardiovascular: S1, S2 Abdomen: Soft Neuro Exam: Alert Extremities: No Edema Skin: Warm Labs Laboratory Tests Test 03/18/21 16:31 03/18/21 23:49 03/19/21 13:21 03/19/21 15:45 Glucose (Fingerstick) 151 mg/dL (70-99) 147 mg/dL (70-99) 156 mg/dL (70-99) SARS-CoV-2 Antigen (Rapid) Negative (NEGATIVE) Test 03/19/21 17:32 03/19/21 20:30 03/20/21 07:30 Glucose (Fingerstick) 176 mg/dL (70-99) 152 mg/dL (70-99) 141 mg/dL (70-99) Laboratory Tests Test 03/19/21 13:21 03/19/21 15:45 03/19/21 17:32 03/19/21 20:30 Glucose (Fingerstick) 156 mg/dL (70-99) 176 mg/dL (70-99) 152 mg/dL (70-99) SARS-CoV-2 Antigen (Rapid) Negative (NEGATIVE) Test 03/20/21 07:30 Glucose (Fingerstick) 141 mg/dL (70-99) Medications Active Scripts Medications Dose Route/Sig Max Daily Dose Days Date Category Gabapentin 600 Mg Tablet 300 Mg PO BID 03/10/21 Reported Atorvastatin Calcium 10 Mg Tablet 10 Mg PO HS 03/10/21 Reported Polar Freeze Gel (Menthol/Camphor) 120 Gm Gel..gram. 1 Vance TP TID 03/10/21 Reported Lantus (Insulin Glargine,Hum.rec.anlog) 100 Unit/1 Ml Vial 38 Unit SQ HS 03/10/21 Reported Omeprazole 20 Mg Capsule.dr 1 Cap PO DAILY 10/16/15 Reported Ibuprofen 400 Mg Tablet 400 Mg PO PRN PRN 10/16/15 Reported Mucinex (Guaifenesin) 600 Mg Tablet.er 1 Tab PO BID 10/16/15 Reported Flonase Allergy Relief (Fluticasone Propionate) 9.9 Ml [place].susp 2 Sprays NS DAILY 10/16/15 Reported Zyrtec (Cetirizine Hcl) 10 Mg Tablet 1 Tab PO DAILY 10/16/15 Reported Carvedilol (Carvedilol) 12.5 Mg Tablet 1 Tab PO BID 10/16/15 Reported Aspir 81 (Aspirin) 81 Mg Tablet.dr 1 Tab PO DAILY 10/16/15 Reported Alprazolam 0.25 Mg Tablet 1 Tab PO TID PRN PRN 10/16/15 Reported Comments cxr reviewed ett ok rll infilt worse lll infilt Impression . IMPRESSION: 1. Acute hypoxemic respiratory failure, multifactorial. 2. Septic shock. 3. Leukocytosis./Bacteremia 4. Urinary tract infection, possible renal abscess. 5. Acute kidney injury. 6. Hypokalemia. resolved 7. Metabolic toxic encephalopathy. 8. Alcohol dependence. Plan . Updated 03/19 Patient improving, discussed with case management Discussed with father at the bedside Possible home soon Updated 03/17 Discussed with RN, will attempt trial May be able to extubate today, patient,, following commands Continue support with antibiotics DVT GI prophylaxis Updated 03/16 Discussed with RN and RT will attempt T-tube Hopeful to extubate today Continue antibiotics Nutritional support DVT GI prophylaxis updated 03/15 cont vent support setting reviewed will decrease sedation sbt when awake may need precedex is heavy alcohol user monitor for withdrawal hep sq protonix for prophylaxis fu final cxs Continue antibiotics per id elevate hob monitor potassium Discussed with RN and RT DANIELLE LOMAS MD Mar 20, 2021 08:33
[2021-03-20] MEDS ORDERED: LISI-130 PO (08:52)
[2021-03-20] MEDS ORDERED: CLON1PAT6 TD (08:52)
[2021-03-20] MEDS ORDERED: Folic Acid PO (08:52)
[2021-03-20] MEDS ORDERED: THIA100T22 PO (08:52)
--- NOTE | 2021-03-20 08:53 | SNU/HH DC ---
DISCHARGE ORDERS DISCHARGE INFORMATION: DISCHARGE DATE: Mar 20, 2021 CONDITION ON DISCHARGE: Guarded CODE STATUS: Code Status: Full FCI: SNF STAY <30 DAYS: Yes POST DISCHARGE ORDERS: ACTIVITY ORDERS: Activity as tolerated WEIGHT BEARING STATUS: As tolerated DIET AFTER DISCHARGE: Cardiac FOLLOW-UP: PHYSICIAN FOLLOW-UP: PCP within 2 weeks of discharge ADDITIONAL FOLLOW-UP: Cardiology as needed LAB ORDERS FOR FOLLOW-UP: CBC, CMP TREATMENT/EQUIPMENT ORDERS: Physical Therapy For: Evalulation/Treatment Occupational Therapy For: Evaluation/Treatment Speech Language Pathology For: Evaluation/Treatment DISCHARGE MEDICATIONS: Home Meds Active Scripts Thiamine Mononitrate (VITAMIN B-1) 100 Mg Tablet, 100 MG PO DAILY for supplement for 30 Days, #30 TAB 2 Refills Prov:RAVINDER RAINES MD 03/20/21 [Folic Acid] 1 MG TABLET No Conflict Check, 1 MG PO DAILY for supplement for 30 Days, #30 2 Refills Prov:RAVINDER RAINES MD 03/20/21 Lisinopril (LISINOPRIL) 40 Mg Tablet, 40 MG PO DAILY for blood pressure for 30 Days, #30 TAB 2 Refills Prov:RAVINDER RAINES MD 03/20/21 Clonidine (CLONIDINE TTS-2 ) 1 Each Patch.tdwk, 1 PATCH TD WEEKLY for blood pressure for 30 Days, #4 PATCH 2 Refills Prov:RAVINDER RAINES MD 03/20/21 Reported Medications Gabapentin (GABAPENTIN) 600 Mg Tablet, 300 MG PO BID for NEUROGENIC PAIN, TAB 03/10/21 Atorvastatin Calcium (ATORVASTATIN CALCIUM) 10 Mg Tablet, 10 MG PO HS for FOR CHOLESTEROL, #30 TAB 0 Refills 03/10/21 Menthol/Camphor (POLAR FREEZE GEL) 120 Gm Gel..gram., 1 BUTCH TP TID for pain, EACH 03/10/21 Insulin Glargine,Hum.rec.anlog (LANTUS) 100 Unit/1 Ml Vial, 38 UNIT SQ HS for dm, EACH 03/10/21 Omeprazole (OMEPRAZOLE) 20 Mg Capsule.dr, 1 CAP PO DAILY, #30 CAP 5 Refills 10/16/15 Fluticasone Propionate (Flonase Allergy Relief) 9.9 Ml [place].susp, 2 SPRAYS NS DAILY, BOTTLE 10/16/15 Cetirizine Hcl (ZYRTEC) 10 Mg Tablet, 1 TAB PO DAILY, #30 TAB 2 Refills 10/16/15 Aspirin (ASPIR 81) 81 Mg Tablet.dr, 1 TAB PO DAILY, #30 TAB 5 Refills 10/16/15 Discontinued Reported Medications Ibuprofen (IBUPROFEN) 400 Mg Tablet, 400 MG PO PRN PRN for INFLAMMATION, TAB 10/16/15 Guaifenesin (MUCINEX) 600 Mg Tablet.er, 1 TAB PO BID, #14 TAB 10/16/15 Carvedilol (CARVEDILOL ) 12.5 Mg Tablet, 1 TAB PO BID, #180 TAB 1 Refill 10/16/15 Alprazolam (ALPRAZOLAM) 0.25 Mg Tablet, 1 TAB PO TID PRN PRN for ANXIETY, #90 TAB 10/16/15 RAVINDER RAINES MD Mar 20, 2021 08:53
[2021-03-20] MEDS: GABAPENTIN 300 MG CAPSULE. PO SCH (08:54)
[2021-03-20] MEDS: ASPIRIN CHEWABLE 81 MG TABLET. PO SCH (08:54)
[2021-03-20] MEDS: LACTOBACILLUS RHAMNOSUS GG 1 CAPSULE. PO SCH (08:54)
[2021-03-20] MEDS: MULTIVITAMIN with MINERAL TABLET. PO SCH (08:55)
[2021-03-20] MEDS: THIAMINE 100 MG TABLET. PO SCH (08:55)
[2021-03-20] MEDS: CETIRIZINE HCL 10 MG TABLET. PO SCH (08:55)
[2021-03-20] MEDS: FOLIC ACID 1 MG TABLET. PO SCH (08:55)
[2021-03-20] MEDS: NICOTINE 14MG PATCH. TD SCH (08:56)
[2021-03-20] MEDS ORDERED: LISINOPRIL 20 MG TABLET PO SCH (09:00)
--- NOTE | 2021-03-20 09:15 | PDOC ---
Infectious Disease Note Subjective: Subjective Patient transferred out of ICU Confused F/U Renal abscess and bacteremia T-max 99.7 Vital Signs: Vital Signs Vital Signs Date Time Temp Pulse Resp B/P (MAP) Pulse Ox O2 Delivery O2 Flow Rate FiO2 03/20/21 08:55 104 171/78 03/20/21 07:15 97.7 20 93 Room Air 97.7 Physical Exam: PHYSICAL EXAM GENERAL: Sedated HEENT: Normocephalic, atraumatic. Anicteric. no conjunctival petechia NECK: Supple. LUNGS: Coarse breath sounds anteriorly HEART: S1, S2, No murmurs. ABDOMEN: Soft, nondistended bowel sounds present no grimacing on deep palpation EXTREMITIES: Trace edema, no cyanosis. DERMATOLOGIC: Warm, dry. No generalized rash. NEUROLOGIC: Sedated but arousable Babin in place Right upper extremity PICC line clean Medications: Inpatient Meds: Medications reviewed. Labs: Lab Laboratory Tests Test 03/19/21 13:21 03/19/21 15:45 03/19/21 17:32 03/19/21 20:30 Glucose (Fingerstick) 156 mg/dL (70-99) 176 mg/dL (70-99) 152 mg/dL (70-99) SARS-CoV-2 Antigen (Rapid) Negative (NEGATIVE) Test 03/20/21 07:30 Glucose (Fingerstick) 141 mg/dL (70-99) Objective: Assessment: Gram-negative bacteremia 4 out of 4 bottles present on admission at [facility],E coli Blood culture positive here with E. coli Septic Shock from gram-negative sepsis Leukocytosis and lactic acidosis, source genitourinary. Urinary tract infection with renal mass, possible renal abscess, not a candidate for IR drainage. EtOH withdrawal Status post A. fib, idioventricular rhythm, asystole, status post cardiac arrest 03/04/2021 Acute hypoxic failure status post intubation 03/12/2021 Acute kidney injury. Febrile illness. Leukocytosis and bandemia. Hyponatremia. History of kidney stone. Encephalopathy, appears multifactorial including metabolic and anxiolytic medication ETOH dependence, recently discharged from rehab facility. Elevated troponin. Hypokalemia and hypomagnesemia. Cirrhosis History of hyperammonemia MARTINEZ suspect with the underlying benzodiazepine dependence Hypertension with hypertensive urgency diabetes mellitus 2 tobacco dependence History of vaginitis. ALLERGIES TO PENICILLIN WITH HIVES AND THROAT SWELLING. Tolerated meropenem test dose well on 03/11/2021 History of recurrent cardiac arrest recent 1 during last hospitalization at [facility] January 2021 Plan: Plan of Care Continue meropenem Clotrimazole vaginal cream Monitor labs and cultures. IR has evaluated the patient. The patient is not a candidate for drainage of RENAL abcess at this time. Will need repeat imaging for follow-up of renal abscess Maintain aspiration precaution Oral and mouth care Overall prognosis poor Discussed with nursing staff. QUINTON DANIELS MD Mar 20, 2021 09:15
--- NOTE | 2021-03-20 10:01 | NUR ---
SS following up with discharge planning. SS reviewed pt chart and discussed with pt RN. Pt is currently on room air. COVID19 negative. PO diet. Pt needing IV antibiotics, Meropenem, for 2-[address] weeks [address] discharge per Dr. Mcmanus. PICC in place. PT/OT recommended acute rehabilitation. Discharge order on the chart. SS was notified that referral was completed for [facility] by Order Booker yesterday and pt was accepted. SS discussed with [facility] this morning and notified them of IV antibiotic need. [facility] reported that they could not accommodate IV antibiotic. SS contacted pt's primary point of contact, pt's sister, Holliejaspreet, , and discussed discharge planning and detention unit. [facility] requesting [facility], ; fax [phone], at this time. SS phoned and faxed discharge orders and referral to [facility]. SS will await acceptance and will proceed accordingly with discharge planning. Addendum: 03/20/21 at 1128 by JOHNATHAN DE LEON SS Pt accepted at [facility]. Pt will discharge today and go to [facility] at 1320 via [facility] transport. Pt, pt's RN, and pt's sister, Holliejaspreet, notified.
[2021-03-20 10:51] VITALS: BP 146/78
[2021-03-20 11:36] VITALS: BP 146/78
[2021-03-23] MEDS ORDERED: ALPR0.254 PO (11:17)
--- NOTE | 2021-03-24 11:58 | PDOC3 ---
[facility]-Discharge Summary Date of Admission: Date of Admission: Mar 10, 2021 Date of Discharge: Date of Discharge: Mar 20, 2021 Discharge Diagnosis: Discharge Diagnosis: Septic shock Renal abscess UTI (urinary tract infection) - Acute pyelonephritis Gram negative bacteremia - ID consulted Hypokalemia Hypomagnesemia Elevated troponin Acute encephalopathy - sepsis vs ETOH/benzo withdrawal. On CIWA and treating sepsis Lactic acidosis - sepsis vs seizure Acute kidney injury - vasomotor nephropathy from sepsis Hyponatremia - likely hypovolemic, will monitor ETOH dependence, recently discharged from rehab facility. Elevated troponin - unclear etiology, likely demand from sepsis. Cardiology consulted Consults: Consults: cardiology Recommendations Able to take PO. Will convert meds to oral Allergy to metoprolol Hydralazine IV PRN Secondary prevention as able ASA Ongoing treatment of sepsis as per ID Lung optimization as per pulmonary Supportive care Consider outpatient ischemic evaluation; Follows with [facility] POC Patient is ready for discharge to [facility] today Continue meropenem Continue PICC station engineer main line Maintain aspiration precaution Repeat CT abdomen and pelvis on Tuesday. Duration of treatment will depend on follow-up CT abdomen and pelvis. If renal abscess has not resolved transfer patient to tertiary care center with urology consultation. She to follow-up with ID clinic in 2 weeks Hospital Course: Hospital Course: 60-year-old female who presented via EMS to [facility] in [place] with report of altered mental status. Patient reportedly was found laying across the toilet resting her head in the shower by her son with altered mental state. Patient does have a history of alcohol abuse and recently was discharged from rehab after she was hospitalized at [facility]. EMS reports noting many empty beer cans found in the home. Patient does report drinking recently. Patient reports nausea and vomiting. Patient denies headache or neck pain. Patient reports she feels "ill ". Patient has received [employer] Covid vaccination. No recent sick contacts EKG Sinus tachycardia at 129bpm, occasional PVC, NO ST elevation, QRS 108ms, QT/QTc 326/479ms Initial labs NA 120 6K3.3, BUN 14, CR 1.3, glucose 199, magnesium 1.4, bilirubin 1.6, AST 36 ALT 26 alk phos 4 3, albumin 2.4, troponin 0.05 7.2179 0.291, ammonia 39, lactic acid 8.3, ethanol undetectable urine benzodiazepines positive COVID-19 rapid PCR negative, urinalysis positive for leuk esterase and nitrates. Blood cultures positive for 2 out of 4 bottles gram-negative adryan Chest x-ray stable. CT head/cervical spine without acute finding. CTA chest and abdomen/pelvis w/ IV contrast obtained with findings concerning for right sided renal abscess. Empiric antibiotic coverage added with vancomycin. Transferred to [facility] for further care. 03/11: Seen bedside, confused, tachycardic, asking if she can have some xanax. Not oriented, tachycardic, blood cultures notes. Transferred to ICU for worsening mental status, concern for seizure prior to arrival and impending potential septic shock. 03/12: This patient the ICU overnight that [facility] was called. I discussion with ED attending (Dr. Hernández); patient went into A. fib and then subsequently PEA. She was intubated for airway protection, but there was some concern for aspiration. Chest x-ray showed diffuse central predominant infiltrates. We will continue IV antibiotics, per ID. Per Dr. More, renal abscess under 5 cm code be managed with antibiotics alone. Will monitor blood cultures and urine cultures from [facility], however if causative organism is uncertain, simply abscess could be beneficial to guide therapy. Critical care time 30 minutes spent reviewing charts, reviewing labs, imaging, discussion with RN. 03/13: Afebrile. On vent with FiO2 80%, PEEP 5. Potassium 2.8 with morning, replaced. WBC 12.5. Antibiotics been changed to meropenem; further antibiotic recommendations per ID. Continue IV antibiotics for now and look to repeat CT/abdomen pelvis in the next day or so. Critical care time 30 minutes spent reviewing charts, reviewing labs, imaging, discussion with RN. 03/14: Afebrile. On vent with FiO2 50%, PEEP 5. Leukocytosis improving, WBC 12.4 today. ABG showed pH 7.47. We will continue to follow blood cultures; gram-negative rods in 1 of 3 bottles, likely E. coli. Continue meropenem, per ID. Patient not candidate for drainage, per IR. Will need repeat CT abdomen/pelvis if patient can tolerate. Critical care time 30 minutes spent reviewing charts, reviewing labs, imaging, discussion with RN. 03/15: Afebrile. On vent with FiO2 40%, PEEP 5. Will continue meropenem for renal mass with gram-negative bacteremia. Per Dr. More, mass not amenable to drainage at this time based on size. Will likely need repeat CT abdomen/pelvis when patient can tolerate. 03/16 Patient evaluated examined at bedside. She remained intubated and sedated. On pretty high levels of sedation with propofol fentanyl and Versed. Continue antibiotics likely going to need a long-term course. Continue ICU level of care. Critical care time 30 minutes spent reviewing charts, reviewing labs, imaging, discussion with RN. 03/17 Patient evaluated and examined at bedside. Attempting to wean sedation for trial of extubation. Incidentally patient self extubated around noon today. She is quite confused but maintaining O2 sats. Ongoing hypertension and if patient passes bedside swallow can likely try some oral medications for blood pressure.Critical care time 30 minutes spent reviewing charts, reviewing labs, imaging, discussion with RN. 03/18 Patient evaluated examined at bedside. Doing well on room air no major complaints this morning. Still pretty confused. Okay to transfer out of ICU. Cardiology ordered clonidine patches that definitely appear to be controlling patient's blood pressure. Continue antibiotics. Guessing patient is going to need 6-week course. Plan of care discussed with bedside RN. 03/19/2021 Patient transferred ICU to medical floor today. Patient passed bedside swallow is able to tolerate p.o. medications. We will continue with IV antibiotics per ID recommendations. Patient sitting up in bed and alert. Patient's chart, labs, images were reviewed and discussed with RN By day of discharge, pt was clinically stable and ready for discharge. Rest of hospital course was uneventful Disposition: Disposition/Orders: D/C to Another Facility Activity: Activity: Resume previous activity Diet: Diet: Cardiac Medications: Home Meds Active Scripts Alprazolam (ALPRAZOLAM) 0.25 Mg Tablet, 1 TAB PO TID PRN for ANXIETY / AG ITATION, #45 TAB Prov:JOE BEJARANO MD 03/23/21 Thiamine Mononitrate (VITAMIN B-1) 100 Mg Tablet, 100 MG PO DAILY for supplement for 30 Days, #30 TAB 2 Refills Prov:RAVINDER RAINES MD 03/20/21 [Folic Acid] 1 MG TABLET No Conflict Check, 1 MG PO DAILY for supplement for 30 Days, #30 2 Refills Prov:RAVINDER RAINES MD 03/20/21 Lisinopril (LISINOPRIL) 40 Mg Tablet, 40 MG PO DAILY for blood pressure for 30 Days, #30 TAB 2 Refills Prov:RAVINDER RAINES MD 03/20/21 Clonidine (CLONIDINE TTS-2 ) 1 Each Patch.tdwk, 1 PATCH TD WEEKLY for blood pressure for 30 Days, #4 PATCH 2 Refills Prov:RAVINDER RAINES MD 03/20/21 Reported Medications Gabapentin (GABAPENTIN) 600 Mg Tablet, 300 MG PO BID for NEUROGENIC PAIN, TAB 03/10/21 Atorvastatin Calcium (ATORVASTATIN CALCIUM) 10 Mg Tablet, 10 MG PO HS for FOR CHOLESTEROL, #30 TAB 0 Refills 03/10/21 Menthol/Camphor (POLAR FREEZE GEL) 120 Gm Gel..gram., 1 BUTCH TP TID for pain, EACH 03/10/21 Insulin Glargine,Hum.rec.anlog (LANTUS) 100 Unit/1 Ml Vial, 38 UNIT SQ HS for dm, EACH 03/10/21 Omeprazole (OMEPRAZOLE) 20 Mg Capsule.dr, 1 CAP PO DAILY, #30 CAP 5 Refills 10/16/15 Fluticasone Propionate (Flonase Allergy Relief) 9.9 Ml [place].susp, 2 SPRAYS NS DAILY, BOTTLE 10/16/15 Cetirizine Hcl (ZYRTEC) 10 Mg Tablet, 1 TAB PO DAILY, #30 TAB 2 Refills 10/16/15 Aspirin (ASPIR 81) 81 Mg Tablet.dr, 1 TAB PO DAILY, #30 TAB 5 Refills 10/16/15 Discontinued Reported Medications Ibuprofen (IBUPROFEN) 400 Mg Tablet, 400 MG PO PRN PRN for INFLAMMATION, TAB 10/16/15 Guaifenesin (MUCINEX) 600 Mg Tablet.er, 1 TAB PO BID, #14 TAB 10/16/15 Carvedilol (CARVEDILOL ) 12.5 Mg Tablet, 1 TAB PO BID, #180 TAB 1 Refill 10/16/15 Alprazolam (ALPRAZOLAM) 0.25 Mg Tablet, 1 TAB PO TID PRN PRN for ANXIETY, #90 TAB 10/16/15 Scheduled Aspirin (Aspir 81), 1 TAB PO DAILY, (Reported) Atorvastatin Calcium (Atorvastatin Calcium), 10 MG PO HS, (Reported) Cetirizine Hcl (Zyrtec), 1 TAB PO DAILY, (Reported) Clonidine (Clonidine Tts-2 ), 1 PATCH TD WEEKLY Fluticasone Propionate (Flonase Allergy Relief), 2 SPRAYS NS DAILY, (Reported) Gabapentin (Gabapentin), 300 MG PO BID, (Reported) Insulin Glargine,Hum.rec.anlog (Lantus), 38 UNIT SQ HS, (Reported) Lisinopril (Lisinopril), 40 MG PO DAILY Menthol/Camphor (Polar Freeze Gel), 1 BUTCH TP TID, (Reported) Omeprazole (Omeprazole), 1 CAP PO DAILY, (Reported) Thiamine Mononitrate (Vitamin B-1), 100 MG PO DAILY [Folic Acid], 1 MG PO DAILY Scheduled PRN Alprazolam (Alprazolam), 1 TAB PO TID PRN for ANXIETY / AGITATION Discontinued Medications Alprazolam (Alprazolam), 1 TAB PO TID PRN PRN for ANXIETY, (Reported) Carvedilol (Carvedilol ), 1 TAB PO BID, (Reported) Guaifenesin (Mucinex), 1 TAB PO BID, (Reported) Ibuprofen (Ibuprofen), 400 MG PO PRN PRN for INFLAMMATION, (Reported) Total Time: Total Time: Total time spent was 36 minutes in preparing scripts, discharge planning with SW and RN, and preparing this discharge summary. Patient seen and examined on day of discharge. Justicifation of Admission Dx: Justifications for Admission: Justification of Admission Dx: Yes RAVINDER RAINES MD Mar 24, 2021 11:58
== END 2021-03-20 13:35 | DRG 870 ==
LOC: 5 NORTH 16:38 → 1 WEST ICU 03-11 15:02 → 6 SOUTH 03-18 18:14
PROVIDERS: ADMIT Internal Medicine; ATTEND Internal Medicine
PROC: 5A1955Z Respiratory Ventilation, Greater than 96 Consecutive Hours (ICD-10-PCS; principal; 2021-03-12)
PROC: 0BH17EZ Insertion of Endotracheal Airway into Trachea, Via Natural or Artificial Opening (ICD-10-PCS; 2021-03-12)
PROC: 02H633Z Insertion of Infusion Device into Right Atrium, Percutaneous Approach (ICD-10-PCS; 2021-03-13)
DX: A41.51 Sepsis due to Escherichia coli [E. coli] (principal); N15.1 Renal and perinephric abscess; G92.8 Other toxic encephalopathy; I50.23 Acute on chronic systolic (congestive) heart failure; J96.01 Acute respiratory failure with hypoxia; N17.0 Acute kidney failure with tubular necrosis; R65.21 Severe sepsis with septic shock; N10 Acute pyelonephritis; E87.1 Hypo-osmolality and hyponatremia; F10.239 Alcohol dependence with withdrawal, unspecified; I24.8 Other forms of acute ischemic heart disease; I42.0 Dilated cardiomyopathy; E03.9 Hypothyroidism, unspecified; E11.9 Type 2 diabetes mellitus without complications; E78.5 Hyperlipidemia, unspecified; E83.42 Hypomagnesemia; E87.6 Hypokalemia; F17.210 Nicotine dependence, cigarettes, uncomplicated; G47.33 Obstructive sleep apnea (adult) (pediatric); I11.0 Hypertensive heart disease with heart failure; I25.10 Atherosclerotic heart disease of native coronary artery without angina pectoris; I48.91 Unspecified atrial fibrillation; K57.90 Diverticulosis of intestine, part unspecified, without perforation or abscess without bleeding; K74.60 Unspecified cirrhosis of liver; M41.9 Scoliosis, unspecified; N20.0 Calculus of kidney; N28.89 Other specified disorders of kidney and ureter; N76.0 Acute vaginitis; Z20.822 Contact with and (suspected) exposure to COVID-19; Z83.3 Family history of diabetes mellitus; Z87.442 Personal history of urinary calculi; Z88.0 Allergy status to penicillin; Z91.19 Patient's noncompliance with other medical treatment and regimen; F32.A Depression, unspecified; F41.9 Anxiety disorder, unspecified; M19.90 Unspecified osteoarthritis, unspecified site; K21.9 Gastro-esophageal reflux disease without esophagitis; Z88.8 Allergy status to other drugs, medicaments and biological substances
CPT/HCPCS: 36415; 36569; 36600; 71045; 80048; 80061; 80076; 82140; 82805; 82962; 83036; 83605; 83735; 84132; 84145; 84484; 85007; 85025; 85610; 85730; 87040; 87077; 87205; 87426; 93306; 94002; 94003; 94760; C9113; J0171; J0360; J1200; J1630; J1644; J1815; J1940; J1956; J2020; J2060; J2185; J2250; J2704; J3010; J3475; J3480; J3490; J7030; 92610-GN; 97530-GP; G0378

== ENCOUNTER → 2021-04-03 | Outpatient (CLI) | payer MEDICARE ==
[2021-03-20 11:36] VITALS: BP 146/78
[~2021-04-03] MED LIST changes: +ATOR10TA60 PO; +CLON1PAT6 TD; +Folic Acid PO; +GABA600T7 PO; +INSU100V8 SQ; +IOHEXOL 300 MG/ML 100ML VIAL. IV ONE; +LISI-130 PO; +MENT120G3 TP; +THIA100T22 PO
--- NOTE | 2021-04-03 09:44 | RAD ---
CT of the abdomen with contrast 04/03/2021 INDICATION: Renal abscess. COMPARISON STUDY: CT of the abdomen and pelvis March 10, 2021 TECHNIQUE: Multidetector CT imaging of the abdomen and pelvis was performed following the administrat ion of IV contrast FINDINGS: Lung bases are unremarkable. The previously seen abscess in the posterior lateral right kid luann has significantly decreased in size now measuring 1.7 cm in maximal diameter, previously measurin g 3.1 cm in diameter when measured in a comparable fashion. Right kidney is otherwise unremarkable. N onobstructing stones in the inferior left kidney are again seen. Morphology is somewhat irregular wit h maximal diameter measuring 9 mm. There is no evidence of hydronephrosis or obstructive uropathy. The liver, gallbladder, spleen, adrenal glands, and pancreas demonstrate no acute normality. Partiall y visualized bowel is unremarkable. No free fluid or free air seen in the abdomen or pelvis. No acute osseous changes are identified. IMPRESSION: Significant interval decrease in size and small renal abscess from 3.1 to 1.7 cm in the interim between studies. CT DOSING PQRS STATEMENT: One or more of the following individualized dose reduction techniques were utilized for this examinat ion: 1. Automated exposure control 2. Adjustment of the mA and/or kV according to patient size 3. Use of iterative reconstruction technique Electronically signed by: Faustino More MD (04/03/2021 9:42 AM) [id number]
== END ==
LOC: CT 09:34
PROVIDERS: ATTEND Internal Medicine Infectious Disease
DX: N20.0 Calculus of kidney (principal); N15.1 Renal and perinephric abscess
CPT/HCPCS: 74160; Q9967

== ENCOUNTER 2021-04-18 10:20 | Emergency (ER) | payer MEDICARE ==
[~2021-04-18] VITALS: Ht 157.5 cm; Wt 59.8 kg
[~2021-04-18 10:20] MED LIST changes: -IOHEXOL 300 MG/ML 100ML VIAL. IV ONE
[2021-04-18 10:42] VITALS: BP 196/100
[2021-04-18] MEDS ORDERED: HYDR10TA2 PO (11:08)
--- NOTE | 2021-04-18 11:08 | PHYS DOC ---
Past Medical History Additional Past Medical Histor: renal abscess Smoking Status: Current Every Day Smoker General Adult EDM: Chief Complaint: MEDICATION REFILL HPI: HPI: Patient is a 60 year old female with history of recent renal abscess with PICC line in place on daily meropenem who presents requesting alprazolam refill. States that she was prescribed this when she was discharged from the hospital in March. She called her primary care doctor's office to get it refilled yesterday, which they did not do, suggesting hydroxyzine instead. Patient did not lease picker the hydroxyzine. States that she has been out of her alprazolam just since yesterday. States that she has been on and off of this medication for years. She does continue to drink alcohol nightly. Denies any increasing flank pain, fever/chills, or concern of worsening condition from her renal abscess. Review of Systems: Review of Systems: Constitutional: Denies fever or chills. [] Eyes: Denies change in visual acuity. [] HENT: Denies nasal congestion or sore throat. [] Respiratory: Denies cough or shortness of breath. [] Cardiovascular: Denies chest pain or edema. [] GI: Denies abdominal pain, nausea, vomiting, bloody stools or diarrhea. [] : Denies dysuria. [] Musculoskeletal: Denies back pain or joint pain. [] Integument: Denies rash. [] Neurologic: Denies headache, focal weakness or sensory changes. [] Endocrine: Denies polyuria or polydipsia. [] Lymphatic: Denies swollen glands. [] Psychiatric: Denies depression or anxiety. [] Heart Score: C/O Chest Pain: No Risk Factors: Risk Factors: DM, Current or recent (<one month) smoker, HTN, HLP, family history of CAD, obesity. Risk Scores: Score 0 - 3: 2.5% MACE over next 6 weeks - Discharge Home Score 4 - 6: 20.3% MACE over next 6 weeks - Admit for Clinical Observation Score 7 - 10: 72.7% MACE over next 6 weeks - Early Invasive Strategies Allergies: Allergies: Allergies Coded Allergies Type Severity Reaction Last Updated Verified Penicillins Allergy Severe Swelling 04/17/21 Yes ampicillin Allergy Severe 04/17/21 Yes codeine Allergy Severe 04/17/21 Yes atorvastatin Allergy Intermediate 04/17/21 Yes losartan Allergy Intermediate 04/17/21 Yes metoprolol Allergy Intermediate PASSED OUT 04/17/21 Yes lorazepam Allergy Mild 04/17/21 Yes Physical Exam: PE: Constitutional: no acute distress, non-toxic appearance. [] Eyes:conjunctiva normal, no discharge. [] Cardiovascular: Normal heart rate Lungs & Thorax: Normal work of breathing Abdomen: Bowel sounds normal, soft, no tenderness, no masses, no pulsatile masses. [] Skin: Warm, dry, no erythema, no rash. [] ] Extremities: Right upper extremity PICC line, with dressing in place, appears clean, dry, intact. No surrounding redness. Neurologic: Alert and oriented X 3, normal motor function, normal sensory function, no focal deficits noted. [] Psychologic: Affect normal, judgement normal, mood normal. [] EKG: EKG: [] Radiology/Procedures: Radiology/Procedures: [] Course & Med Decision Making: Course & Med Decision Making Pertinent Labs and Imaging studies reviewed. (See chart for details) Patient is a 60-year-old female who presents requesting alprazolam refill. Ran out yesterday, has been on and off of this medication for years. Already contacted her PCP office yesterday, who declined to refill her alprazolam prescription. They suggested hydroxyzine instead. She declined the hydroxyzine yesterday She does continue to drink nightly. Do not feel comfortable refilling her alprazolam prescription, but did offer her a hydroxyzine prescription, which today she is amenable to. I encouraged her to call her on-call provider for her PCPs office if she wishes to discuss her alprazolam prescription further. [id number] Issac Disclaimer: Issac Disclaimer: This electronic medical record was generated, in whole or in part, using a voice recognition dictation system. Departure Departure Impression: Primary Impression: Medication requested Disposition: HOME / SELF CARE / HOMELESS Condition: STABLE Referrals: DAYSI DENTON MD (PCP) Additional Instructions: Please call your on-call provider for your primary care doctor if you wish to discuss your alprazolam prescription further. Scripts Hydroxyzine Hcl (HYDROXYZINE HCL) 10 Mg Tablet 10 MG PO TID PRN PRN for ANXIETY / AGITATION, #15 TAB 0 Refills Prov: JANI REYNAGA MD 04/18/21 JANI REYNAGA MD Apr 18, 2021 11:08
== END 2021-04-18 11:14 | disposition home or self-care (01) ==
LOC: ER 10:25
DX: N15.1 Renal and perinephric abscess (principal); Z76.0 Encounter for issue of repeat prescription; F17.200 Nicotine dependence, unspecified, uncomplicated
CPT/HCPCS: 99284

== ENCOUNTER → 2021-04-27 | Outpatient (CLI) | payer MEDICARE ==
[2021-04-26 09:09] VITALS: BP 187/98
[~2021-04-27] MED LIST changes: +ERTAPENEM 1GM IVPB(GENERIC) NS 50 ML IV ONE; +HYDR10TA2 PO; +IOHEXOL 300 MG/ML 100ML VIAL. IV ONE
--- NOTE | 2021-04-27 10:05 | RAD ---
CT ABDOMEN+PELVIS W History: Follow-up renal abscess. Comparison: CT abdomen and pelvis 04/03/2021. CT chest abdomen and pelvis 03/10/2021. Technique: CT of the abdomen and pelvis with intravenous contrast. Findings: The lung bases are clear. The liver, gallbladder, pancreas, spleen, and adrenal glands are unremarkab le. There is a persistent hypodensity in the posterior lateral cortex of the right kidney measuring 1.1 x 1.0 x 1.3 cm which demonstrates significant consecutive interval decrease from February and March 2021 comparisons. Demonstrated left lower pole calcified nephrolith. No hydronephrosis. Mild wall thi ckening of the decompressed bladder without focal abnormality. The stomach is decompressed. Small bowel is unremarkable. Colonic diverticulosis without evidence of diverticulitis. Diffuse calcification of the uterus. Aortoiliac atherosclerotic calcification. No abd ominal pelvic adenopathy. The soft tissues are unremarkable. Mild degenerative changes of the lumbar spine. Impression: 1. Consecutive interval decreases in size of heterogeneous right lower pole renal abscess with resid ual 1.3 cm hypodensity. 2. Left lower pole nephrolithiasis redemonstrated. No hydronephrosis. 3. Diverticulosis without evidence of diverticulitis. ------ Exposure: One or more of the following individualized dose reduction techniques were utilized for thi s examination: 1. Automated exposure control 2. Adjustment of the mA and/or kV according to patient size 3. Use of iterative reconstruction technique. Electronically signed by: Irving Valdez MD (04/27/2021 10:02 AM) [facility]
== END ==
LOC: CT 09:58
PROVIDERS: ATTEND Internal Medicine Infectious Disease
DX: N20.0 Calculus of kidney (principal); K57.30 Diverticulosis of large intestine without perforation or abscess without bleeding; N15.1 Renal and perinephric abscess; I70.0 Atherosclerosis of aorta; I70.8 Atherosclerosis of other arteries; M47.816 Spondylosis without myelopathy or radiculopathy, lumbar region
CPT/HCPCS: 74177; Q9967